=== PATIENT | female | born 1970 | race American Indian/Alaskan Native ===

== ENCOUNTER 2019-07-23 15:46 | Observation (INO) | payer OTHER ==
--- NOTE | 2019-07-23 16:11 | Emergency Department Report ---
Blank Doc - Documentation Documentation: 48-year-old female that chest pain and SOB. This initial assessment/diagnostic orders/clinical plan/treatment(s) is/are subject to change based on patient's health status, clinical progression and re- assessment by fellow clinical providers in the ED. Further treatment and workup at subsequent clinical providers discretion. Patient/guardians urged not to elope from the ED as their condition may be serious if not clinically assessed and managed. Initial orders include: 1- Patient sent to MAIN ED for further evaluation and treatment 2- labs 3- UA 4- CXR
--- NOTE | 2019-07-23 16:54 | XRay Report ---
CHEST 2 VIEWS INDICATION: Chest Pain. COMPARISON: None FINDINGS: Support devices: None. Heart: Within normal limits. Lungs/pleura: No acute air space or interstitial disease. No pneumothorax. Additional findings: None. IMPRESSION: 1. No acute findings. Signer Name: Freddie Diez MD Signed: 07/23/2019 4:49 PM Workstation Name: [id number]
[2019-07-23] MEDS ORDERED: SODIUM CHLORIDE 0.9% 1000 ML 1,000 ML IV ONE ×3 (16:56→20:07)
[2019-07-23] MEDS ORDERED: FAMOTIDINE 20 MG/2 ML INJ IV ONE (17:03)
[2019-07-23] MEDS ORDERED: HYDROmorphone 1 MG/1 ML INJ IV ONE (17:03)
[2019-07-23] MEDS ORDERED: ONDANSETRON 4 MG/2 ML INJ IV ONE (17:03)
[2019-07-23 17:06] LABS: Basophils % (Auto) 0.4 % (0.0-1.8); Hematocrit 32.4 % (30.3-42.9); Hemoglobin 10.7 gm/dl (10.1-14.3); Lymphocytes # (Auto) 1.6 K/mm3 (1.2-5.4); Lymphocytes % (Auto) 15.3 % (13.4-35.0); Mean Corpuscular HGB Conc 33 % (30-34); Mean Corpuscular Volume 93 fl (79-97); Monocytes # (Auto) 0.5 K/mm3 (0.0-0.8); Monocytes % (Auto) 5.4 % (0.0-7.3); Platelet Count 226 K/mm3 (140-440); Red Cell Distribution Width 14.3 % (13.2-15.2)
[2019-07-23 17:12] LABS: INR 1.07 (0.87-1.13)
[2019-07-23 17:27] LABS: Alanine Aminotransferase 11 units/L (7-56); Albumin 3.8 g/dL (3.9-5); BUN/Creatinine Ratio 34; Blood Urea Nitrogen 57 mg/dL (7-17); Calcium 10.1 mg/dL (8.4-10.2); Hemolysis Index 1
[2019-07-23] MEDS ORDERED: THIAMINE 100 MG, FOLIC ACID 1 MG, MULTIPLE VITAMIN INJ, ADULT 10 ML in SODIUM CHLORIDE ... IV ONE (18:00)
[2019-07-23 18:23] LABS: Free T4 (Free Thyroxine) 0.94 ng/dL (0.76-1.46)
[2019-07-23] MEDS ORDERED: MAGNESIUM SULFATE 2 GM/50 ML BAG IV ONE (18:52)
--- NOTE | 2019-07-23 19:49 | Cat Scan Report ---
CT ABDOMEN AND PELVIS WITHOUT CONTRAST INDICATION: Generalized abdominal pain, nausea vomiting and diarrhea TECHNICAL: Multiple axial CT images of the abdomen and pelvis were acquired without intravenous contr ast. Sagittal and coronal reformats were obtained. All CTs at this facility utilize dose reduction techniques including automated exposure control, iterative reconstruction and weight based dosing whe n appropriate to reduce patient radiation dose to as low as reasonable achievable. COMPARISON: None FINDINGS: Limited imaging of the bilateral lung bases demonstrates no acute abnormality. Abdomen: Within the limitations of today's noncontrast study, the liver, spleen, gallbladder, bilater al adrenal glands and bilateral kidneys show no evidence of acute abnormality. No obstructing stone o r hydronephrosis is identified. The small and large bowel are normal in caliber. There is no evidence of bowel obstruction, free fluid or free air. The appendix appears normal. There is dense atheroscle rotic calcification along the distal abdominal aorta without evidence for aneurysm. Pelvis: No free fluid is seen within the pelvis. Uterus and urinary bladder appear within normal limi ts. Bones and Soft Tissues: Evaluation of bony structures demonstrates no evidence of acute bony abnorma lity. IMPRESSION: 1. No CT evidence of acute inflammatory or obstructive process within the abdomen or pelvis. Signer Name: Makeda Pratt MD Signed: 07/23/2019 7:45 PM Workstation Name: [id number]
--- NOTE | 2019-07-23 20:07 | Emergency Department Report ---
ED N/V/D HPI - General Chief complaint: Chest Pain Stated complaint: CHEST PAIN Time Seen by Provider: 07/23/19 16:10 Source: patient Mode of arrival: Wheelchair Limitations: No Limitations - History of Present Illness Initial comments: 48-year-old female with past medical history hypertension, hypothyroidism, elevated cholesterol, CAD without stents, and daily alcohol use is as the hospital complaining of nausea, vomiting, and generalized weakness. Patient states she has had no appetite the last 2 weeks. She's had intermittent vomiting but denies hematemesis. She has not had much to eat in the last 2 weeks and now complains of inability to ambulate due to generalized weakness shortness of breath. He complains of generalized abdominal soreness. She also states she's developed a rash to her abdomen over the last several weeks. She had diarrhea yesterday is dark in color denies hematochezia. No reports of fever. Patient also place a left leg pain/numbness starting from the buttock and radiating downward. Denies history of PE/DVT, recent travel, calf tenderness, or Leg Edema. Patient stopped alcohol about 2 weeks ago and did not tremors or seizures. She reports history of . In triage pt complained of bilateral rib pain she complains of left-sided lower aching rib pain during my evaluation. - Related Data Home Medications Medication Instructions Recorded Confirmed Last Taken AtorvaSTATin [Lipitor] 40 mg PO QHS 07/23/19 07/23/19 Unknown Clopidogrel [Plavix] 75 mg PO QDAY 07/23/19 07/23/19 Unknown ISOSORBIDE MONOnitrate 30 mg PO DAILY 07/23/19 07/23/19 Unknown Propylthiouracil 50 mg PO DAILY 07/23/19 07/23/19 Unknown amLODIPine [Norvasc] 5 mg PO DAILY 07/23/19 07/23/19 Unknown traMADol [Ultram] 50 mg PO Q6HR PRN 07/23/19 07/23/19 Unknown Allergies Allergy/AdvReac Type Severity Reaction Status Date / Time lisinopril Allergy Swelling Verified 07/23/19 15:47 ED Review of Systems ROS: Stated complaint: CHEST PAIN Other details as noted in HPI Comment: All other systems reviewed and negative ED Past Medical Hx - Past Medical History Hx Hypertension: Yes Additional medical history: HIGH CHOLESTROL/ RI X2. Hyperthyroidism - Surgical History Past Surgical History?: Yes Additional Surgical History: - Social History Smoking Status: Current Every Day Smoker Substance Use Type: Alcohol - Medications Home Medications: Home Medications Medication Instructions Recorded Confirmed Last Taken Type AtorvaSTATin [Lipitor] 40 mg PO QHS 07/23/19 07/23/19 Unknown History Clopidogrel [Plavix] 75 mg PO QDAY 07/23/19 07/23/19 Unknown History ISOSORBIDE MONOnitrate 30 mg PO DAILY 07/23/19 07/23/19 Unknown History Propylthiouracil 50 mg PO DAILY 07/23/19 07/23/19 Unknown History amLODIPine [Norvasc] 5 mg PO DAILY 07/23/19 07/23/19 Unknown History traMADol [Ultram] 50 mg PO Q6HR PRN 07/23/19 07/23/19 Unknown History ED Physical Exam - General Limitations: No Limitations - Other Other exam information: General: No acute distress Head: Atraumatic Eyes: normal appearance ENT: Mucous membranes Neck: Normal appearance, no midline tenderness Chest: Clear to auscultation bilaterally CV: Tachycardic regular rhythm Abdomen: Soft, normal bowel sounds, mild generalized tenderness, no rebound or guarding Back: Normal inspection Extremity: Normal inspection infection, full range of motion, no calf tenderness or edema Neuro: Alert O x 3, no facial asymmetry, speech clear, no gross motor sensory deficit Psych: Appropriate behavior Skin: Dark reticular rash to abdomen ED Course Vital Signs 07/23/19 07/23/19 07/23/19 16:15 16:42 17:00 Temperature 97.3 F L Pulse Rate 140 H 135 H Respiratory 24 21 Rate Blood Pressure 84/48 115/92 Blood Pressure [Left] O2 Sat by Pulse 94 94 100 Oximetry 07/23/19 07/23/19 07/23/19 18:00 19:00 19:02 Temperature Pulse Rate 112 H 120 H Respiratory 15 15 16 Rate Blood Pressure 152/89 136/56 Blood Pressure [Left] O2 Sat by Pulse 100 100 99 Oximetry 07/23/19 07/23/19 19:05 19:10 Temperature 98.1 F Pulse Rate 117 H Respiratory 16 16 Rate Blood Pressure Blood Pressure 107/62 [Left] O2 Sat by Pulse 100 Oximetry ED Medical Decision Making - Lab Data Result diagrams: 07/23/19 16:50 07/23/19 16:50 - EKG Data -: EKG Interpreted by Me EKG shows normal: sinus rhythm, ST-T waves (lat t wave inv, LATIA) Rate: tachycardia (141) - Radiology Data Radiology results: report reviewed CHEST 2 VIEWS INDICATION: Chest Pain. COMPARISON: None FINDINGS: Support devices: None. Heart: Within normal limits. Lungs/pleura: No acute air space or interstitial disease. No pneumothorax. Additional findings: None. IMPRESSION: 1. No acute findings. CT ABDOMEN AND PELVIS WITHOUT CONTRAST INDICATION: Generalized abdominal pain, nausea vomiting and diarrhea TECHNICAL: Multiple axial CT images of the abdomen and pelvis were acquired without intravenous contrast. Sagittal and coronal reformats were obtained. All CTs at this facility utilize dose reduction techniques including automated exposure control, iterative reconstruction and weight based dosing when appropriate to reduce patient radiation dose to as low as reasonable achievable. COMPARISON: None FINDINGS: Limited imaging of the bilateral lung bases demonstrates no acute abnormality. Abdomen: Within the limitations of today's noncontrast study, the liver, spleen, gallbladder, bilateral adrenal glands and bilateral kidneys show no evidence of acute abnormality. No obstructing stone or hydronephrosis is identified. The small and large bowel are normal in caliber. There is no evidence of bowel obstruction, free fluid or free air. The appendix appears normal. There is dense atherosclerotic calcification along the distal abdominal aorta without evidence for aneurysm. Pelvis: No free fluid is seen within the pelvis. Uterus and urinary bladder appear within normal limits. Bones and Soft Tissues: Evaluation of bony structures demonstrates no evidence of acute bony abnormality. IMPRESSION: 1. No CT evidence of acute inflammatory or obstructive process wi thin the abdomen or pelvis. - Medical Decision Making Patient presents to the hospital in poor appetite for 2 weeks intermittent nausea and vomiting. Symptoms started after stopping alcohol intake. Labs reveal significant dehydration. Patient states tachycardia is improving for persistent with IV fluids. Patient is hydrated with normal saline and a banana bag. Mag was supplemented. Dilaudid 0.5 mg and Zofran provided for pain and nausea. After these meds patient did have some persistent tachycardia. Ativan 1 mg ordered for possible alcohol withdrawal-related tachycardia with additional normal saline. Chest x-ray CT abdomen and pelvis did not show any acute findings. Despite 2 L of fluid still awaiting urine production. Patient will be admitted to the hospital for mild hyponatremia with associated mild hyperglycemia and dehydration with renal insufficiency. Patient's left leg symptoms likely secondary to sciatica. I suspect the patient is rash to abdomen secondary to heating pad use. When questioned she admits to using a heating pa d daily and even sleeping with the pad at night. - Differential Diagnosis alcohol withdrawal, dehydration, abdominal infection, hyperthyroid Critical Care Time: No Critical care attestation.: If time is entered above; I have spent that time in minutes in the direct care of this critically ill patient, excluding procedure time. ED Disposition Clinical Impression: Poor appetite, Nausea vomiting and diarrhea, History of alcohol abuse, Dehydration, Hypomagnesemia, Renal insufficiency, Hyponatremia Disposition: DC-09 OP ADMIT IP TO THIS HOSP Is pt being admited?: Yes Condition: Stable Referrals: CORY BENÍTEZ MD [Primary Care Provider] - 3-5 Days
[2019-07-23] MEDS ORDERED: LORazepam 2 MG/ML VIAL IV ONE (20:31)
[2019-07-23 21:11] LABS: Bacteria,Urine 1+ /HPF (Negative); Bilirubin,Urine NEG (Negative); Blood,Urine SM (Negative); Color,Urine Yellow (Yellow); Hyaline Casts,Urine 5 /LPF; Mucus,Urine FEW /HPF; Protein,Urine <15 mg/dL mg/dL (Negative); Urobilinogen,Urine < 2.0 mg/dL (<2.0)
[2019-07-23 21:19] LABS: Amphetamine Screen,Urine PRESUMPTIVE NEGATIVE; Benzodiazepines Screen,Urine PRESUMPTIVE NEGATIVE; Cocaine Screen,Urine PRESUMPTIVE NEGATIVE; Methadone Screen,Urine PRESUMPTIVE NEGATIVE; Opiate Screen,Urine PRESUMPTIVE NEGATIVE
[2019-07-23 21:32] LABS: Cannabinoid Screen,Urine PRESUMPTIVE POSITIVE
[2019-07-23] MEDS ORDERED: ACETAMINOPHEN 325 MG TAB PO PRN (22:20)
[2019-07-23] MEDS ORDERED: MAGNESIUM HYDROXIDE (MOM) ORAL LIQD UDC PO PRN (22:20)
[2019-07-23] MEDS ORDERED: ONDANSETRON 4 MG/2 ML INJ IV PRN (22:20)
[2019-07-23] MEDS ORDERED: SODIUM CHLORIDE 0.9% 1000 ML 1,000 ML IV SCH (23:00)
[2019-07-24] MEDS: MORPHINE 2 MG/1 ML INJ IV PRN ×2 (00:06→08:07)
--- NOTE | 2019-07-24 04:33 | History and Physical Report ---
History of Present Illness Date of examination: 07/23/19 Date of admission: 07/23/19 22:21 Chief complaint: Nausea vomiting and diarrhea for 2 weeks History of present illness: Patient is a 48-year-old female who presents to the emergency room today complaining of nausea vomiting and diarrhea which has been ongoing for about 2 weeks. She has had decreased appetite over the last few days. She denies any fever no chills, no chest pain or shortness of breath. She denies any abdominal pain. Denies any bloody stool. She has significant history of hyperthyroidism and she has been compliant with her medications. Upon arrival in the emergency room she was tachycardic. She also has a history of alcohol withdrawal. She has not been drinking alcohol for over 3 weeks. Her work-up reveals a slightly elevated creatinine and low magnesium level. Magnesium was promptly repleted in the emergency room. Past History Past Medical History: CAD, hyperthyroidism, hypertension Past Surgical History: Social history: smoking (Smokes 1 pack/day of tobacco), alcohol abuse (She has not been drinking alcohol for over 3 weeks) Medications and Allergies Allergies Allergy/AdvReac Type Severity Reaction Status Date / Time lisinopril Allergy Swelling Verified 07/23/19 15:47 Home Medications Medication Instructions Recorded Confirmed Last Taken Type AtorvaSTATin [Lipitor] 40 mg PO QHS 07/23/19 07/23/19 Unknown History Clopidogrel [Plavix] 75 mg PO QDAY 07/23/19 07/23/19 Unknown History ISOSORBIDE MONOnitrate 30 mg PO DAILY 07/23/19 07/23/19 Unknown History Propylthiouracil 50 mg PO DAILY 07/23/19 07/23/19 Unknown History amLODIPine [Norvasc] 5 mg PO DAILY 07/23/19 07/23/19 Unknown History traMADol [Ultram] 50 mg PO Q6HR PRN 07/23/19 07/23/19 Unknown History Active Meds: Active Medications Acetaminophen (Tylenol) 650 mg PO Q4H PRN PRN Reason: Pain MILD(1-3)/Fever >100.5/FOX Sodium Chloride (Nacl 0.9% 1000 Ml) 1,000 mls @ 125 mls/hr IV DIRECT ANA Last Admin: 07/24/19 00:06 Dose: 125 mls/hr Documented by: Magnesium Hydroxide (Milk Of Magnesia) 30 ml PO Q4H PRN PRN Reason: Constipation Morphine Sulfate (Morphine) 2 mg IV Q4H PRN PRN Reason: Pain, Moderate (4-6) Last Admin: 07/24/19 00:06 Dose: 2 mg Documented by: Ondansetron HCl (Zofran) 4 mg IV Q8H PRN PRN Reason: Nausea And Vomiting Sodium Chloride (Sodium Chloride Flush Syringe 10 Ml) 10 ml IV BID ANA Sodium Chloride (Sodium Chloride Flush Syringe 10 Ml) 10 ml IV PRN PRN PRN Reason: LINE FLUSH Last Admin: 07/24/19 00:06 Dose: 10 ml Documented by: Review of Systems Constitutional: poor appetite Gastrointestinal: nausea, vomiting, diarrhea Exam - Constitutional Vitals: Temp Pulse Resp BP Pulse Ox 97.3 F L 89 18 136/76 100 07/24/19 00:05 07/24/19 00:05 07/24/19 00:06 07/24/19 00:05 07/24/19 00:05 General appearance: Present: no acute distress - EENT Eyes: Present: PERRL, EOM intact ENT: clear oral mucosa - Neck Neck: Present: supple, normal ROM - Respiratory Respiratory effort: normal Respiratory: bilateral: CTA - Cardiovascular Rhythm: regular Heart Sounds: Present: S1 & S2 - Extremities Extremities: no ischemia, pulses intact Peripheral Pulses: within normal limits - Abdominal General gastrointestinal: Present: soft, non-tender, non-distended - Integumentary Integumentary: Present: clear, warm, dry - Musculoskeletal Musculoskeletal: strength equal bilaterally - Psychiatric Psychiatric: appropriate mood/affect, intact judgment & insight - Neurologic Neurologic: CNII-XII intact, moves all extremities Results - Labs CBC & Chem 7: 07/23/19 16:50 07/23/19 16:50 Labs: Abnormal lab results 07/23/19 07/23/19 07/23/19 Range/Units 16:50 16:50 17:21 RBC 3.50 L (3.65-5.03) M/mm3 Seg Neutrophils % 78.9 H (40.0-70.0) % Seg Neutrophils # 8.0 H (1.8-7.7) K/mm3 Sodium 128 L (137-145) mmol/L Chloride 92.4 L (98-107) mmol/L Carbon Dioxide 14 L (22-30) mmol/L BUN 57 H (7-17) mg/dL Creatinine 1.7 H (0.7-1.2) mg/dL Glucose 215 H (65-100) mg/dL Magnesium 1.60 L (1.7-2.3) mg/dL Albumin 3.8 L (3.9-5) g/dL Urine WBC (Auto) (0.0-6.0) /HPF 07/23/19 Range/Units Unknown RBC (3.65-5.03) M/mm3 Seg Neutrophils % (40.0-70.0) % Seg Neutrophils # (1.8-7.7) K/mm3 Sodium (137-145) mmol/L Chloride (98-107) mmol/L Carbon Dioxide (22-30) mmol/L BUN (7-17) mg/dL Creatinine (0.7-1.2) mg/dL Glucose (65-100) mg/dL Magnesium (1.7-2.3) mg/dL Albumin (3.9-5) g/dL Urine WBC (Auto) 53.0 H (0.0-6.0) /HPF Assessment and Plan - Patient Problems (1) Nausea vomiting and diarrhea Current Visit: Yes Status: Acute Plan to address problem: Etiology is unclear. Patient has been admitted to the medical floor. Patient is placed on IV Zofran as needed. (2) Hypomagnesemia Current Visit: Yes Status: Acute Plan to address problem: Magnesium is repleted (3) Renal insufficiency Current Visit: Yes Status: Acute Plan to address problem: Probably secondary to volume depletion from nausea vomiting and diarrhea. We will monitor chemistry. (4) Hyponatremia Current Visit: Yes Status: Acute Plan to address problem: Probably secondary to the nausea vomiting and diarrhea. We will continue to monitor chemistry. (5) Dehydration Current Visit: Yes Status: Acute Plan to address problem: Patient has been placed on IV fluid normal saline for hydration. We will continue to monitor chemistry. (6) History of alcohol abuse Current Visit: Yes Status: Acute Plan to address problem: We will continue to monitor for withdrawal symptoms. Patient has not been drinking alcohol for over 3 weeks.
[2019-07-24 07:52] LABS: Basophils # (Auto) 0.1 K/mm3 (0.0-0.1); Basophils % (Auto) 0.6 % (0.0-1.8); Eosinophils % (Auto) 0.5 % (0.0-4.3); Hemoglobin 7.4 gm/dl (10.1-14.3); Lymphocytes # (Auto) 2.5 K/mm3 (1.2-5.4); Lymphocytes % (Auto) 27.2 % (13.4-35.0); Mean Corpuscular HGB Conc 34 % (30-34); Mean Corpuscular Volume 92 fl (79-97); Monocytes # (Auto) 0.9 K/mm3 (0.0-0.8); Platelet Count 146 K/mm3 (140-440); Red Blood Count 2.39 M/mm3 (3.65-5.03); Red Cell Distribution Width 14.3 % (13.2-15.2)
[2019-07-24 08:04] LABS: INR 1.09 (0.87-1.13)
[2019-07-24 08:15] LABS: BUN/Creatinine Ratio 34; Blood Urea Nitrogen 27 mg/dL (7-17); Calcium 8.3 mg/dL (8.4-10.2); Hemolysis Index 5
[2019-07-24] MEDS ORDERED: MORPHINE 2 MG/1 ML INJ IV PRN ×2 (10:47→10:51)
[2019-07-24] MEDS ORDERED: traMADol 50 MG TAB PO PRN (10:54)
[2019-07-24] MEDS ORDERED: NON-FORMULARY EACH (Isosorbide Mononitrate 30 MG) PO SCH (11:00)
[2019-07-24] MEDS ORDERED: PROPYLTHIOURACIL 50 MG PO SCH (11:00)
[2019-07-24] MEDS ORDERED: chlordiazePOXIDE 25 MG CAP PO PRN (11:13)
[2019-07-24] MEDS ORDERED: LORazepam 2 MG/ML VIAL IV PRN ×2 (11:13)
[2019-07-24] MEDS ORDERED: CLOPIDOGREL 75 MG TAB PO SCH (12:00)
[2019-07-24] MEDS ORDERED: amLODIPine 5 MG TAB PO SCH (12:00)
[2019-07-24] MEDS: LORazepam 2 MG/ML VIAL IV PRN ×3 (12:07→15:34)
[2019-07-24] MEDS ORDERED: NICOTINE 14 MG/24 HR PATCH TD SCH (13:00)
[2019-07-24 13:09] LABS: Alanine Aminotransferase 12 units/L (7-56); Albumin 2.9 g/dL (3.9-5); BUN/Creatinine Ratio 27; Blood Urea Nitrogen 19 mg/dL (7-17); Calcium 8.5 mg/dL (8.4-10.2); Hemolysis Index 3
[2019-07-24] MEDS ORDERED: propylthiouraciL 50 MG TAB PO SCH (14:00)
[2019-07-24 14:22] VITALS: BP 112/64
--- NOTE | 2019-07-24 17:29 | Event Note ---
Date: 07/24/19 Patient with EtOH dependence In delirium tremens CIWA protocol started
--- NOTE | 2019-07-25 12:38 | Discharge Summary ---
Providers - Providers Date of Admission: 07/23/19 22:21 Date of discharge: 07/24/19 Attending physician: RENETTA MARTIN [facility] Condition: Stable Hospital course: Patient is a 48-year-old female who presents to the emergency room today complaining of nausea vomiting and diarrhea which has been ongoing for about 2 weeks. She has had decreased appetite over the last few days. She denies any fever no chills, no chest pain or shortness of breath. She denies any abdominal pain. Denies any bloody stool. She has significant history of hyperthyroidism and she has been compliant with her medications. Upon arrival in the emergency room she was tachycardic. She also has a history of alcohol withdrawal. She has not been drinking alcohol for over 3 weeks. Her work-up reveals a slightly elevated creatinine and low magnesium level. Magnesium was promptly repleted in the emergency room. (1) Nausea vomiting and diarrhea Current Visit: Yes Status: Acute Plan to address problem: Etiology is unclear. Patient has been admitted to the medical floor. Patient is placed on IV Zofran as needed. (2) Hypomagnesemia Current Visit: Yes Status: Acute Plan to address problem: Magnesium is repleted (3) Renal insufficiency Current Visit: Yes Status: Acute Plan to address problem: Probably secondary to volume depletion from nausea vomiting and diarrhea. We will monitor chemistry. (4) Hyponatremia Current Visit: Yes Status: Acute Plan to address problem: Probably secondary to the nausea vomiting and diarrhea. We will continue to mo nitor chemistry. (5) Dehydration Current Visit: Yes Status: Acute Plan to address problem: Patient has been placed on IV fluid normal saline for hydration. We will continue to monitor chemistry. (6) History of alcohol abuse Current Visit: Yes Status: Acute Plan to address problem: We will continue to monitor for withdrawal symptoms. Patient has not been drinking alcohol for over 3 weeks. (7) Hyperthyroidism Cont Propylthiouracil Patient left AMA Disposition: DC-07 LEFT AGAINST MED ADVICE Core Measure Documentation - Palliative Care Palliative Care/ Comfort Measures: Not Applicable - Core Measures Any of the following diagnoses?: none Exam - Constitutional Vitals: Temp Pulse Resp BP Pulse Ox 98.1 F 89 19 112/64 100 07/24/19 14:21 07/24/19 14:21 07/24/19 14:21 07/24/19 14:21 07/24/19 14:21 General appearance: Present: no acute distress, well-nourished - EENT Eyes: Present: PERRL ENT: hearing intact, clear oral mucosa - Neck Neck: Present: supple, normal ROM - Respiratory Respiratory effort: normal Respiratory: bilateral: CTA - Cardiovascular Heart Sounds: Present: S1 & S2. Absent: rub, click - Extremities Extremities: pulses symmetrical, No edema Peripheral Pulses: within normal limits - Abdominal General gastrointestinal: Present: soft, non-tender, non-distended, normal bowel sounds Female genitourinary: Present: normal - Integumentary Integumentary: Present: clear, warm, dry - Musculoskeletal Musculoskeletal: gait normal, strength equal bilaterally - Psychiatric Psychiatric: appropriate mood/affect, intact judgment & insight - Neurologic Neurologic: CNII-XII intact, moves all extremities Plan Activity: no restrictions Diet: regular Follow up with: CORY BENÍTEZ MD [Primary Care Provider] - 3-5 Days
== END 2019-07-24 17:00 | disposition left against medical advice (07) ==
LOC: ED 15:46 → 3A 22:21
PROVIDERS: ADMIT Internal Medicine Geriatric Medicine; ATTEND Internal Medicine
DX: R11.2 Nausea with vomiting, unspecified (principal); E83.42 Hypomagnesemia; E87.1 Hypo-osmolality and hyponatremia; E86.0 Dehydration; N28.9 Disorder of kidney and ureter, unspecified; F10.129 Alcohol abuse with intoxication, unspecified; I25.10 Atherosclerotic heart disease of native coronary artery without angina pectoris; E05.90 Thyrotoxicosis, unspecified without thyrotoxic crisis or storm; I10 Essential (primary) hypertension; F17.200 Nicotine dependence, unspecified, uncomplicated; R63.0 Anorexia; Z98.891 History of uterine scar from previous surgery
CPT/HCPCS: 36415; 71046; 74176; 80048; 80053; 80307; 81001; 82140; 83690; 83735; 84439; 84443; 84484; 84703; 85025; 85379; 85610; 85730; 87086; 87116; 93005; 93010; 96361; 96365; 96367; 96375; 96376; 99284; G0378; J1170; J2060; J2270; J2405; J3411; J3475; J7030

== ENCOUNTER 2019-07-27 09:05 | Inpatient (IN) | payer OTHER ==
[2019-07-27] MEDS ORDERED: SODIUM CHLORIDE 0.9% 1000 ML 1,000 ML IV ONE ×2 (10:08→13:17)
[2019-07-27] MEDS ORDERED: LORazepam 2 MG/ML VIAL ONE (10:36)
[2019-07-27] MEDS ORDERED: LORazepam 2 MG/ML VIAL IV ONE (10:38)
[2019-07-27 10:39] LABS: Basophils # (Auto) 0.1 K/mm3 (0.0-0.1); Basophils % (Auto) 0.6 % (0.0-1.8); Eosinophils % (Auto) 0.3 % (0.0-4.3); Hematocrit 23.6 % (30.3-42.9); Hemoglobin 7.9 gm/dl (10.1-14.3); Lymphocytes # (Auto) 2.7 K/mm3 (1.2-5.4); Lymphocytes % (Auto) 19.8 % (13.4-35.0); Mean Corpuscular HGB Conc 34 % (30-34); Mean Corpuscular Volume 93 fl (79-97); Monocytes # (Auto) 0.7 K/mm3 (0.0-0.8); Monocytes % (Auto) 5.2 % (0.0-7.3); Platelet Count 225 K/mm3 (140-440); Red Blood Count 2.54 M/mm3 (3.65-5.03); Red Cell Distribution Width 14.7 % (13.2-15.2)
[2019-07-27 10:51] LABS: Creatine Kinase MB 1.3 ng/mL (0.0-4.0)
[2019-07-27 10:52] LABS: Alanine Aminotransferase 29 units/L (7-56); Albumin 3.6 g/dL (3.9-5); BUN/Creatinine Ratio 21; Blood Urea Nitrogen 17 mg/dL (7-17); Calcium 9.3 mg/dL (8.4-10.2); Hemolysis Index 0
[2019-07-27 10:54] LABS: Bilirubin,Direct < 0.2 mg/dL (0-0.2)
--- NOTE | 2019-07-27 11:10 | XRay Report ---
CHEST 1 VIEW INDICATION: hypertension. COMPARISON: 07/23/2019 FINDINGS: Support devices: None. Heart: Within normal limits. Pulmonary vasculature: Normal. Lungs/Pleura: No acute air space or interstitial disease. Additional findings: None. IMPRESSION: 1. No acute findings. Signer Name: Russ Otero MD Signed: 07/27/2019 11:06 AM Workstation Name: [id number]
--- NOTE | 2019-07-27 12:36 | Emergency Department Report ---
ED Abdominal Pain HPI - General Chief Complaint: Abdominal Pain Stated Complaint: ALCOHOL WITHDRAWS Time Seen by Provider: 07/27/19 10:06 Source: patient Mode of arrival: Ambulatory Limitations: No Limitations - History of Present Illness Initial Comments: This is a 48-year-old female who is somewhat perseverating on the idea that she stopped drinking 3 weeks ago and now she is sick from stopping. She states that she has had symptoms for at least a week and a half. She neglected to mention to me her recent admission for chest pain. Remarkably she now complains of left upper quadrant pain. She neglected to tell any of her prior physicians that s he's been having black stools for at least 2 weeks. She complains of nausea but has not been vomiting. Complains of generalized weakness. She arrived and was noted to be tachycardic. She was not febrile she has a history of hyperthyroidism. It looks like she was placed on Plavix on 07/23/2019. Recent discharge summary: Hospitalization Condition: Stable Hospital course: Patient is a 48-year-old female who presents to the emergency room today complaining of nausea vomiting and diarrhea which has been ongoing for about 2 weeks. She has had decreased appetite over the last few days. She denies any fever no chills, no chest pain or shortness of breath. She denies any abdominal pain. Denies any bloody stool. She has significant history of hyperthyroidism and she has been compliant with her medications. Upon arrival in the emergency room she was tachycardic. She also has a history of alcohol withdrawal. She has not been drinking alcohol for over 3 weeks. Her work-up reveals a slightly elevated creatinine and low magnesium level. Magnesium was promptly repleted in the emergency room. (1) Nausea vomiting and diarrhea Current Visit: Yes Status: Acute Plan to address problem: Etiology is unclear. Patient has been admitted to the medical floor. Patient is placed on IV Zofran as needed. (2) Hypomagnesemia Current Visit: Yes Status: Acute Plan to address problem: Magnesium is repleted (3) Renal insufficiency Current Visit: Yes Status: Acute Plan to address problem: Probably secondary to volume depletion from nausea vomiting and diarrhea. We will monitor chemistry. (4) Hyponatremia Current Visit: Yes Status: Acute Plan to address problem: Probably secondary to the nausea vomiting and diarrhea. We will continue to monitor chemistry. (5) Dehydration Current Visit: Yes Status: Acute Plan to address problem: Patient has been placed on IV fluid normal saline for hydration. We will continue to monitor chemistry. (6) History of alcohol abuse Current Visit: Yes Status: Acute Plan to address problem: We will continue to monitor for withdrawal symptoms. Patient has not been drinking alcohol for over 3 weeks. (7) Hyperthyroidism Cont Propylthiouracil Complaint: abdominal pain -: Gradual Location: LUQ Radiation: none Migration to: no migration Severity: moderate Quality: aching Consistency: intermittent Improves With: nothing Worsens With: nothing Associated Symptoms: nausea, vomiting, melena (apparently) - Related Data Home Medications Medication Instructions Recorded Confirmed Last Taken AtorvaSTATin [Lipitor] 40 mg PO QHS 07/23/19 07/23/19 Unknown Clopidogrel [Plavix] 75 mg PO QDAY 07/23/19 07/23/19 Unknown ISOSORBIDE MONOnitrate 30 mg PO DAILY 07/23/19 07/23/19 Unknown Propylthiouracil 50 mg PO DAILY 07/23/19 07/23/19 Unknown amLODIPine [Norvasc] 5 mg PO DAILY 07/23/19 07/23/19 Unknown traMADol [Ultram] 50 mg PO Q6HR PRN 07/23/19 07/23/19 Unknown Allergies Allergy/AdvReac Type Severity Reaction Status Date / Time lisinopril Allergy Swelling Verified 07/23/19 15:47 ED Review of Systems ROS: Stated complaint: ALCOHOL WITHDRAWS Other details as noted in HPI Constitutional: denies: chills, fever Eyes: denies: eye pain, eye discharge, vision change ENT: denies: ear pain, throat pain Respiratory: denies: cough, shortness of breath, wheezing Cardiovascular: denies: chest pain, palpitations Endocrine: no symptoms reported Gastrointestinal: abdominal pain, nausea, vomiting, diarrhea Genitourinary: denies: urgency, dysuria, discharge Musculoskeletal: denies: back pain, joint swelling, arthralgia Skin: denies: rash, lesions Neurological: denies: headache, weakness, paresthesias Psychiatric: denies: anxiety, depression Hematological/Lymphatic: denies: easy bleeding, easy bruising ED Past Medical Hx - Past Medical History Previous Medical History?: Yes Hx Hypertension: Yes Hx Heart Attack/AMI: Yes (x 2 Last 2017) Hx Congestive Heart Failure: No Hx Diabetes: No Hx Asthma: No Hx COPD: No Additional medical history: HIGH CHOLESTROL/ [place] X2. Hyperthyroidism - Surgical History Past Surgical History?: Yes Additional Surgical History: - Social History Smoking Status: Current Every Day Smoker Substance Use Type: Alcohol - Medications Home Medications: Home Medications Medication Instructions Recorded Confirmed Last Taken Type AtorvaSTATin [Lipitor] 40 mg PO QHS 07/23/19 07/23/19 Unknown History Clopidogrel [Plavix] 75 mg PO QDAY 07/23/19 07/23/19 Unknown History ISOSORBIDE MONOnitrate 30 mg PO DAILY 07/23/19 07/23/19 Unknown History Propylthiouracil 50 mg PO DAILY 07/23/19 07/23/19 Unknown History amLODIPine [Norvasc] 5 mg PO DAILY 07/23/19 07/23/19 Unknown History traMADol [Ultram] 50 mg PO Q6HR PRN 07/23/19 07/23/19 Unknown History ED Physical Exam - General Limitations: No Limitations General appearance: alert, in no apparent distress - Head Head exam: Present: atraumatic, normocephalic - Eye Eye exam: Present: normal appearance, other (moderately exophthalmic). Absent: scleral icterus - ENT ENT exam: Present: mucous membranes moist - Neck Neck exam: Present: normal inspection. Absent: tenderness, meningismus - Respiratory Respiratory exam: Present: normal lung sounds bilaterally. Absent: respiratory distress - Cardiovascular Cardiovascular Exam: Present: normal rhythm, tachycardia. Absent: systolic murmur, diastolic murmur, rubs, gallop - GI/Abdominal GI/Abdominal exam: Present: soft, normal bowel sounds. Absent: distended, tenderness, guarding, rebound, rigid, organomegaly, mass, bruit, pulsatile mass, hernia - Extremities Exam Extremities exam: Present: normal inspection - Back Exam Back exam: Present: normal inspection. Absent: CVA tenderness (R), CVA tenderness (L) - Neurological Exam Neurological exam: Present: alert, oriented X3, CN II-XII intact. Absent: motor sensory deficit - Psychiatric Psychiatric exam: Present: normal mood, anxious - Skin Skin exam: Present: warm, dry, intact, normal color. Absent: rash ED Course Vital Signs 07/27/19 07/27/19 07/27/19 09:18 10:19 10:30 Temperature 98.2 F Pulse Rate 132 H Respiratory 22 19 Rate Blood Pressure 130/70 Blood Pressure [Left] O2 Sat by Pulse 100 100 Oximetry 07/27/19 07/27/19 07/27/19 10:45 11:00 11:16 Temperature Pulse Rate 94 H 104 H 107 H Respiratory 13 22 19 Rate Blood Pressure 124/61 108/47 Blood Pressure 124/61 [Left] O2 Sat by Pulse 100 100 100 Oximetry 07/27/19 07/27/19 07/27/19 12:00 13:30 13:46 Temperature Pulse Rate 98 H 91 H Respiratory 18 12 Rate Blood Pressure 105/49 126/64 105/49 Blood Pressure [Left] O2 Sat by Pulse 100 99 100 Oximetry 07/27/19 14:00 Temperature Pulse Rate 105 H Respiratory 14 Rate Blood Pressure Blood Pressure 104/58 [Left] O2 Sat by Pulse 100 Oximetry - Reevaluation(s) Reevaluation #1: Given Ativan. Protonix. Transfusion ordered. Hemoglobin dropped 3 last admission. Rectal exam was grossly positive for blood (bright blue} Amanuel on a stool no blood clots. 07/27/19 15:09 07/27/19 15:09 ED Medical Decision Making - Lab Data Result diagrams: 07/27/19 10:07 07/27/19 10:19 Laboratory Results - last 24 hr 07/27/19 07/27/19 07/27/19 10:07 10:07 10:07 WBC 13.6 H RBC 2.54 L Hgb 7.9 L Hct 23.6 L MCV 93 MCH 31 MCHC 34 RDW 14.7 Plt Count 225 Lymph % (Auto) 19.8 [place] % (Auto) 5.2 Eos % (Auto) 0.3 Baso % (Auto) 0.6 Lymph # 2.7 [place] # 0.7 Eos # 0.0 Baso # 0.1 Seg Neutrophils % 74.1 H Seg Neutrophils # 10.1 H Sodium Potassium Chloride Carbon Dioxide Anion Gap BUN Creatinine Estimated GFR BUN/Creatinine Ratio Glucose Lactic Acid Calcium Phosphorus Magnesium Total Bilirubin Direct Bilirubin Indirect Bilirubin AST ALT Alkaline Phosphatase Ammonia Total Creatine Kinase CK-MB (CK-2) CK-MB (CK-2) Rel Index Total Protein Albumin Albumin/Globulin Ratio Lipase TSH Salicylates 4.1 Acetaminophen < 5.0 L Plasma/Serum Alcohol 07/27/19 07/27/19 07/27/19 10:07 10:07 10:07 WBC RBC Hgb Hct MCV MCH MCHC RDW Plt Count Lymph % (Auto) [place] % (Auto) Eos % (Auto) Baso % (Auto) Lymph # [place] # Eos # Baso # Seg Neutrophils % Seg Neutrophils # Sodium Potassium Chloride Carbon Dioxide Anion Gap BUN Creatinine Estimated GFR BUN/Creatinine Ratio Glucose Lactic Acid 2.20 H* Calcium Phosphorus Magnesium Total Bilirubin Direct Bilirubin Indirect Bilirubin AST ALT Alkaline Phosphatase Ammonia 25.0 Total Creatine Kinase CK-MB (CK-2) CK-MB (CK-2) Rel Index Total Protein Albumin Albumin/Globulin Ratio Lipase TSH Salicylates Acetaminophen Plasma/Serum Alcohol < 0.01 07/27/19 07/27/19 07/27/19 10:07 10:07 10:19 WBC RBC Hgb Hct MCV MCH MCHC RDW Plt Count Lymph % (Auto) [place] % (Auto) Eos % (Auto) Baso % (Auto) Lymph # [place] # Eos # Baso # Seg Neutrophils % Seg Neutrophils # Sodium 136 L Potassium 4.0 Chloride 101.8 Carbon Dioxide 22 Anion Gap 16 BUN 17 Creatinine 0.8 Estimated GFR > 60 BUN/Creatinine Ratio 21 Glucose 91 Lactic Acid Calcium 9.3 Phosphorus 3.60 Magnesium 1.80 Total Bilirubin 0.20 Direct Bilirubin < 0.2 Indirect Bilirubin 0.0 AST 28 ALT 29 Alkaline Phosphatase 101 Ammonia Total Creatine Kinase 36 CK-MB (CK-2) 1.3 CK-MB (CK-2) Rel Index 3.6 Total Protein 6.9 Albumin 3.6 L Albumin/Globulin Ratio 1.1 Lipase 33 TSH 0.881 Salicylates Acetaminophen Plasma/Serum Alcohol 07/27/19 11:00 WBC RBC Hgb Hct MCV MCH MCHC RDW Plt Count Lymph % (Auto) [place] % (Auto) Eos % (Auto) Baso % (Auto) Lymph # [place] # Eos # Baso # Seg Neutrophils % Seg Neutrophils # Sodium Potassium Chloride Carbon Dioxide Anion Gap BUN Creatinine Estimated GFR BUN/Creatinine Ratio Glucose Lactic Acid 2.00 Calcium Phosphorus Magnesium Total Bilirubin Direct Bilirubin Indirect Bilirubin AST ALT Alkaline Phosphatase Ammonia Total Creatine Kinase CK-MB (CK-2) CK-MB (CK-2) Rel Index Total Protein Albumin Albumin/Globulin Ratio Lipase TSH Salicylates Acetaminophen Plasma/Serum Alcohol Laboratory Results - last 24 hr 07/27/19 07/27/19 07/27/19 10:07 10:07 10:07 WBC 13.6 H RBC 2.54 L Hgb 7.9 L Hct 23.6 L MCV 93 MCH 31 MCHC 34 RDW 14.7 Plt Count 225 Lymph % (Auto) 19.8 [place] % (Auto) 5.2 Eos % (Auto) 0.3 Baso % (Auto) 0.6 Lymph # 2.7 [place] # 0.7 Eos # 0.0 Baso # 0.1 Seg Neutrophils % 74.1 H Seg Neutrophils # 10.1 H Sodium Potassium Chloride Carbon Dioxide Anion Gap BUN Creatinine Estimated GFR BUN/Creatinine Ratio Glucose Lactic Acid Calcium Phosphorus Magnesium Total Bilirubin Direct Bilirubin Indirect Bilirubin AST ALT Alkaline Phosphatase Ammonia Total Creatine Kinase CK-MB (CK-2) CK-MB (CK-2) Rel Index Total Protein Albumin Albumin/Globulin Ratio Lipase TSH Thyroxine (T4) Salicylates 4.1 Acetaminophen < 5.0 L Plasma/Serum Alcohol 07/27/19 07/27/19 07/27/19 10:07 10:07 10:07 WBC RBC Hgb Hct MCV MCH MCHC RDW Plt Count Lymph % (Auto) [place] % (Auto) Eos % (Auto) Baso % (Auto) Lymph # [place] # Eos # Baso # Seg Neutrophils % Seg Neutrophils # Sodium Potassium Chloride Carbon Dioxide Anion Gap BUN Creatinine Estimated GFR BUN/Creatinine Ratio Glucose Lactic Acid 2.20 H* Calcium Phosphorus Magnesium Total Bilirubin Direct Bilirubin Indirect Bilirubin AST ALT Alkaline Phosphatase Ammonia 25.0 Total Creatine Kinase CK-MB (CK-2) CK-MB (CK-2) Rel Index Total Protein Albumin Albumin/Globulin Ratio Lipase TSH Thyroxine (T4) Salicylates Acetaminophen Plasma/Serum Alcohol < 0.01 07/27/19 07/27/19 07/27/19 10:07 10:07 10:07 WBC RBC Hgb Hct MCV MCH MCHC RDW Plt Count Lymph % (Auto) [place] % (Auto) Eos % (Auto) Baso % (Auto) Lymph # [place] # Eos # Baso # Seg Neutrophils % Seg Neutrophils # Sodium Potassium Chloride Carbon Dioxide Anion Gap BUN Creatinine Estimated GFR BUN/Creatinine Ratio Glucose Lactic Acid Calcium Phosphorus 3.60 Magnesium 1.80 Total Bilirubin Direct Bilirubin Indirect Bilirubin AST ALT Alkaline Phosphatase Ammonia Total Creatine Kinase CK-MB (CK-2) CK-MB (CK-2) Rel Index Total Protein Albumin Albumin/Globulin Ratio Lipase 33 TSH 0.881 Thyroxine (T4) 4.7 Salicylates Acetaminophen Plasma/Serum Alcohol 07/27/19 07/27/19 10:19 11:00 WBC RBC Hgb Hct MCV MCH MCHC RDW Plt Count Lymph % (Auto) [place] % (Auto) Eos % (Auto) Baso % (Auto) Lymph # [place] # Eos # Baso # Seg Neutrophils % Seg Neutrophils # Sodium 136 L Potassium 4.0 Chloride 101.8 Carbon Dioxide 22 Anion Gap 16 BUN 17 Creatinine 0.8 Estimated GFR > 60 BUN/Creatinine Ratio 21 Glucose 91 Lactic Acid 2.00 Calcium 9.3 Phosphorus Magnesium Total Bilirubin 0.20 Direct Bilirubin < 0.2 Indirect Bilirubin 0.0 AST 28 ALT 29 Alkaline Phosphatase 101 Ammonia Total Creatine Kinase 36 CK-MB (CK-2) 1.3 CK-MB (CK-2) Rel Index 3.6 Total Protein 6.9 Albumin 3.6 L Albumin/Globulin Ratio 1.1 Lipase TSH Thyroxine (T4) Salicylates Acetaminophen Plasma/Serum Alcohol - EKG Data -: EKG Interpreted by Nm EKG shows normal: sinus rhythm Rate: tachycardia - EKG Data Interpretation: nonspecific ST-T wave michael - Radiology Data Radiology results: report reviewed (chest x-ray no acute findings) Critical care attestation.: If time is entered above; I have spent that time in minutes in the direct care o f this critically ill patient, excluding procedure time. ED Disposition Clinical Impression: Upper GI bleeding Disposition: OP ADMIT IP TO THIS HOSP Is pt being admited?: Yes Does the pt Need Aspirin: No Condition: Stable Instructions: Abdominal Pain (ED) Referrals: PRIMARY CARE, [Referring] - 3-5 Days Time of Disposition: 15:11
[2019-07-27] MEDS ORDERED: SODIUM CHLORIDE 0.9% 500 ML 500 ML IV ONE (13:16)
[2019-07-27] MEDS ORDERED: PANTOPRAZOLE 40 MG INJ IV ONE ×2 (13:16→13:17)
[2019-07-27] MEDS: MEROPENEM/NS 1 GRAM/100 ML 1 GRAM/100 ML BAG IV ONE ×2 (13:41→13:45)
[2019-07-27] MEDS ORDERED: VANCOMYCIN PHARMACY TO DOSE IV SCH (14:00)
[2019-07-27] MEDS ORDERED: CEFEPIME/NS 1 GM/100 ML 1 GM/100 ML BAG IV ONE (14:24)
[2019-07-27 14:28] LABS: HCG Qualitative,Urine Negative (Negative)
[2019-07-27 14:33] LABS: Bilirubin,Urine NEG (Negative); Blood,Urine NEG (Negative); Color,Urine Yellow (Yellow); Mucus,Urine FEW /HPF; Protein,Urine <15 mg/dL mg/dL (Negative); RBC,Urine < 1.0 /HPF (0.0-6.0); Urobilinogen,Urine < 2.0 mg/dL (<2.0)
[2019-07-27 14:43] LABS: Amphetamine Screen,Urine PRESUMPTIVE NEGATIVE; Benzodiazepines Screen,Urine PRESUMPTIVE NEGATIVE; Cocaine Screen,Urine PRESUMPTIVE NEGATIVE; Methadone Screen,Urine PRESUMPTIVE NEGATIVE; Opiate Screen,Urine PRESUMPTIVE NEGATIVE
[2019-07-27 14:55] LABS: Cannabinoid Screen,Urine PRESUMPTIVE POSITIVE
[2019-07-27] MEDS: VANCOMYCIN 750 MG in SODIUM CHLORIDE 0.9% 250ML 250 ML IV SCH (16:25)
--- NOTE | 2019-07-27 17:25 | Gastroenterology Consultation ---
History of Present Illness - Reason for Consult Consult date: 07/27/19 Mel[place] Requesting physician: MAIRA GARCIA - History of Present Illness Patient is a 48 yo female with PMH tobacco, EtOh abuse, NSAID use, and history AR 2 years ago, recently started on plavix, presenting with melena and anemia and tachycardia Patient reports for the last 3 weeks black tarry stool, LUQ abd pain that is moderate to severe, intermittent, radiates around to the left flank, no al leviating or exacerbating factors, duration 3 weeks, associated with melena and fatigue and nausea She denies history PUD in the past home meds updated/reviewed/reconciled Past History Past Medical History: acute AR, other (thyroid, EtOH abuse) Past Surgical History: Social history: smoking, alcohol abuse Family history: no significant family history Medications and Allergies Allergies Allergy/AdvReac Type Severity Reaction Status Date / Time lisinopril Allergy Swelling Verified 07/23/19 15:47 Home Medications Medication Instructions Recorded Confirmed Last Taken Type AtorvaSTATin [Lipitor] 40 mg PO QHS 07/23/19 07/23/19 Unknown History Clopidogrel [Plavix] 75 mg PO QDAY 07/23/19 07/23/19 Unknown History ISOSORBIDE MONOnitrate 30 mg PO DAILY 07/23/19 07/23/19 Unknown History Propylthiouracil 50 mg PO DAILY 07/23/19 07/23/19 Unknown History amLODIPine [Norvasc] 5 mg PO DAILY 07/23/19 07/23/19 Unknown History traMADol [Ultram] 50 mg PO Q6HR PRN 07/23/19 07/23/19 Unknown History Active Meds: Active Medications Vancomycin HCl 750 mg/ Sodium (Chloride) 265 mls @ 132.5 mls/hr IV Q12H ANA Last Admin: 07/27/19 16:25 Dose: 132.5 mls/hr Documented by: Review of Systems - Review of Systems All systems: negative (10 systems reviewed and negative except as mentioned above in the HPI) Exam - Constitutional Vital Signs: Temp Pulse Resp BP Pulse Ox 98.2 F 105 H 14 104/58 100 07/27/19 09:18 07/27/19 14:00 07/27/19 14:00 07/27/19 14:00 07/27/19 14:00 General appearance: other (mildly uncomfortable appearing) - EENT Eyes: EOM intact - Neck Neck: supple - Respiratory Respiratory effort: normal - Cardiovascular Rhythm: other (tachy) - Gastrointestinal General gastrointestinal: Present: soft, tender - Integumentary Integumentary: Present: dry - Musculoskeletal Musculoskeletal: normal - Neurologic Neurological: alert and oriented x3 - Psychiatric Psychiatric: appropriate mood/affect - Labs CBC & Chem 7: 07/27/19 10:07 07/27/19 10:19 Lab Results: Laboratory Results - last 24 hr 07/27/19 07/27/19 07/27/19 10:07 10:07 10:07 WBC 13.6 H RBC 2.54 L Hgb 7.9 L Hct 23.6 L MCV 93 MCH 31 MCHC 34 RDW 14.7 Plt Count 225 Lymph % (Auto) 19.8 [place] % (Auto) 5.2 Eos % (Auto) 0.3 Baso % (Auto) 0.6 Lymph # 2.7 [place] # 0.7 Eos # 0.0 Baso # 0.1 Seg Neutrophils % 74.1 H Seg Neutrophils # 10.1 H Sodium Potassium Chloride Carbon Dioxide Anion Gap BUN Creatinine Estimated GFR BUN/Creatinine Ratio Glucose Lactic Acid Calcium Phosphorus Magnesium Total Bilirubin Direct Bilirubin Indirect Bilirubin AST ALT Alkaline Phosphatase Ammonia Total Creatine Kinase CK-MB (CK-2) CK-MB (CK-2) Rel Index Total Protein Albumin Albumin/Globulin Ratio Lipase TSH Thyroxine (T4) Urine Color Urine Turbidity Urine pH Ur Specific [place] Urine Protein Urine Glucose (UA) Urine Ketones Urine Blood Urine Nitrite Ur Reducing Substances Urine Bilirubin Urine Ictotest Urine Urobilinogen Ur Leukocyte Esterase Urine WBC (Auto) Urine RBC (Auto) U Epithel Cells (Auto) Urine Mucus Urine HCG, Qual Salicylates 4.1 Urine Opiates Screen Urine Methadone Screen Acetaminophen < 5.0 L Ur Barbiturates Screen Ur Phencyclidine Scrn Ur Amphetamines Screen U Benzodiazepines Scrn Urine Cocaine Screen U Marijuana (THC) Screen Drugs of Abuse Note Plasma/Serum Alcohol Blood Type Antibody Screen Crossmatch 07/27/19 07/27/19 07/27/19 10:07 10:07 10:07 WBC RBC Hgb Hct MCV MCH MCHC RDW Plt Count Lymph % (Auto) [place] % (Auto) Eos % (Auto) Baso % (Auto) Lymph # [place] # Eos # Baso # Seg Neutrophils % Seg Neutrophils # Sodium Potassium Chloride Carbon Dioxide Anion Gap BUN Creatinine Estimated GFR BUN/Creatinine Ratio Glucose Lactic Acid 2.20 H* Calcium Phosphorus Magnesium Total Bilirubin Direct Bilirubin Indirect Bilirubin AST ALT Alkaline Phosphatase Ammonia 25.0 Total Creatine Kinase CK-MB (CK-2) CK-MB (CK-2) Rel Index Total Protein Albumin Albumin/Globulin Ratio Lipase TSH Thyroxine (T4) Urine Color Urine Turbidity Urine pH Ur Specific [place] Urine Protein Urine Glucose (UA) Urine Ketones Urine Blood Urine Nitrite Ur Reducing Substances Urine Bilirubin Urine Ictotest Urine Urobilinogen Ur Leukocyte Esterase Urine WBC (Auto) Urine RBC (Auto) U Epithel Cells (Auto) Urine Mucus Urine HCG, Qual Salicylates Urine Opiates Screen Urine Methadone Screen Acetaminophen Ur Barbiturates Screen Ur Phencyclidine Scrn Ur Amphetamines Screen U Benzodiazepines Scrn Urine Cocaine Screen U Marijuana (THC) Screen Drugs of Abuse Note Plasma/Serum Alcohol < 0.01 Blood Type Antibody Screen Crossmatch 07/27/19 07/27/19 07/27/19 10:07 10:07 10:07 WBC RBC Hgb Hct MCV MCH MCHC RDW Plt Count Lymph % (Auto) [place] % (Auto) Eos % (Auto) Baso % (Auto) Lymph # [place] # Eos # Baso # Seg Neutrophils % Seg Neutrophils # Sodium Potassium Chloride Carbon Dioxide Anion Gap BUN Creatinine Estimated GFR BUN/Creatinine Ratio Glucose Lactic Acid Calcium Phosphorus 3.60 Magnesium 1.80 Total Bilirubin Direct Bilirubin Indirect Bilirubin AST ALT Alkaline Phosphatase Ammonia Total Creatine Kinase CK-MB (CK-2) CK-MB (CK-2) Rel Index Total Protein Albumin Albumin/Globulin Ratio Lipase 33 TSH 0.881 Thyroxine (T4) 4.7 Urine Color Urine Turbidity Urine pH Ur Specific [place] Urine Protein Urine Glucose (UA) Urine Ketones Urine Blood Urine Nitrite Ur Reducing Substances Urine Bilirubin Urine Ictotest Urine Urobilinogen Ur Leukocyte Esterase Urine WBC (Auto) Urine RBC (Auto) U Epithel Cells (Auto) Urine Mucus Urine HCG, Qual Salicylates Urine Opiates Screen Urine Methadone Screen Acetaminophen Ur Barbiturates Screen Ur Phencyclidine Scrn Ur Amphetamines Screen U Benzodiazepines Scrn Urine Cocaine Screen U Marijuana (THC) Screen Drugs of Abuse Note Plasma/Serum Alcohol Blood Type Antibody Screen Crossmatch 07/27/19 07/27/19 07/27/19 10:19 11:00 13:59 WBC RBC Hgb Hct MCV MCH MCHC RDW Plt Count Lymph % (Auto) [place] % (Auto) Eos % (Auto) Baso % (Auto) Lymph # [place] # Eos # Baso # Seg Neutrophils % Seg Neutrophils # Sodium 136 L Potassium 4.0 Chloride 101.8 Carbon Dioxide 22 Anion Gap 16 BUN 17 Creatinine 0.8 Estimated GFR > 60 BUN/Creatinine Ratio 21 Glucose 91 Lactic Acid 2.00 0.80 Calcium 9.3 Phosphorus Magnesium Total Bilirubin 0.20 Direct Bilirubin < 0.2 Indirect Bilirubin 0.0 AST 28 ALT 29 Alkaline Phosphatase 101 Ammonia Total Creatine Kinase 36 CK-MB (CK-2) 1.3 CK-MB (CK-2) Rel Index 3.6 Total Protein 6.9 Albumin 3.6 L Albumin/Globulin Ratio 1.1 Lipase TSH Thyroxine (T4) Urine Color Urine Turbidity Urine pH Ur Specific [place] Urine Protein Urine Glucose (UA) Urine Ketones Urine Blood Urine Nitrite Ur Reducing Substances Urine Bilirubin Urine Ictotest Urine Urobilinogen Ur Leukocyte Esterase Urine WBC (Auto) Urine RBC (Auto) U Epithel Cells (Auto) Urine Mucus Urine HCG, Qual Salicylates Urine Opiates Screen Urine Methadone Screen Acetaminophen Ur Barbiturates Screen Ur Phencyclidine Scrn Ur Amphetamines Screen U Benzodiazepines Scrn Urine Cocaine Screen U Marijuana (THC) Screen Drugs of Abuse Note Plasma/Serum Alcohol Blood Type Antibody Screen Crossmatch 07/27/19 07/27/19 07/27/19 14:00 14:00 14:00 WBC RBC Hgb Hct MCV MCH MCHC RDW Plt Count Lymph % (Auto) [place] % (Auto) Eos % (Auto) Baso % (Auto) Lymph # [place] # Eos # Baso # Seg Neutrophils % Seg Neutrophils # Sodium Potassium Chloride Carbon Dioxide Anion Gap BUN Creatinine Estimated GFR BUN/Creatinine Ratio Glucose Lactic Acid Calcium Phosphorus Magnesium Total Bilirubin Direct Bilirubin Indirect Bilirubin AST ALT Alkaline Phosphatase Ammonia Total Creatine Kinase CK-MB (CK-2) CK-MB (CK-2) Rel Index Total Protein Albumin Albumin/Globulin Ratio Lipase TSH Thyroxine (T4) Urine Color Yellow Urine Turbidity Clear Urine pH 5.0 Ur Specific [place] 1.012 Urine Protein <15 mg/dl Urine Glucose (UA) Neg Urine Ketones Neg Urine Blood Neg Urine Nitrite Neg Ur Reducing Substances Not Reportable Urine Bilirubin Neg Urine Ictotest Not Reportable Urine Urobilinogen < 2.0 Ur Leukocyte Esterase Tr Urine WBC (Auto) 1.0 Urine RBC (Auto) < 1.0 U Epithel Cells (Auto) 1.0 Urine Mucus Few Urine HCG, Qual Negative Salicylates Urine Opiates Screen Presumptive negative Urine Methadone Screen Presumptive negative Acetaminophen Ur Barbiturates Screen Presumptive negative Ur Phencyclidine Scrn Presumptive negative Ur Amphetamines Screen Presumptive negative U Benzodiazepines Scrn Presumptive negative Urine Cocaine Screen Presumptive negative U Marijuana (THC) Screen Presumptive positive Drugs of Abuse Note Disclamer Plasma/Serum Alcohol Blood Type O POSITIVE Antibody Screen Negative Crossmatch See Detail Assessment and Plan Presentation concerning for upper GI bleeding, start PPI drip, maintain NPO status, proceed with EGD urgently given active melena and tachycardia and significant anemia Given history highest on Ddx is PUD, followed by malignancy, AVM, etc - Patient Problems (1) LUQ abdominal pain Current Visit: Yes Status: Acute (2) Melena Current Visit: Yes Status: Acute (3) Anemia Current Visit: Yes Status: Acute Qualifiers: Anemia type: unspecified type Qualified Code(s): D64.9 - Anemia, unspecified (4) History of alcohol abuse Current Visit: Yes Status: Acute (5) Upper GI bleeding Current Visit: Yes Status: Acute (6) Nausea vomiting and diarrhea Current Visit: No Status: Acute
[2019-07-27] MEDS ORDERED: LIDOCAINE MPF (2%) 20 MG/1 ML VIAL 5 ML ONE (17:30)
[2019-07-27] MEDS ORDERED: PROPOFOL 200 MG/20 ML VIAL IV ONE ×3 (17:55→18:28)
[2019-07-27] MEDS ORDERED: SODIUM CHLORIDE 0.9% 1000 ML 1,000 ML ONE (17:56)
--- NOTE | 2019-07-27 17:57 | Cat Scan Report ---
CT ABDOMEN AND PELVIS WITH CONTRAST INDICATION: abd pain anemia. TECHNIQUE: Axial CT images were obtained through the abdomen and pelvis after 100 cc Omnipaque [address] scans at this location are performed using CT dose reduction for ALARA by means of automated exposure control. COMPARISON: CT abdomen 07/27/2019 FINDINGS: LOWER CHEST: No significant abnormality. LIVER: No significant abnormality. GALLBLADDER: No significant abnormality. BILE DUCTS: No significant abnormality. PANCREAS: No significant abnormality. SPLEEN: No significant abnormality. ADRENALS: No significant abnormality. RIGHT KIDNEY and URETER: No significant abnormality. LEFT KIDNEY and URETER: No significant abnormality. STOMACH and SMALL BOWEL: Moderate thickening of gastric antrum portion of stomach characteristic for gastritis with probable nonperforated peptic ulcer disease seen on image 22 COLON: No significant abnormality. APPENDIX: Normal PERITONEUM: No free fluid. No free air. No fluid collection. LYMPH NODES: No significant adenopathy. AORTA and ARTERIES: No significant abnormality. IVC and VEINS: No significant abnormality. URINARY BLADDER: No significant abnormality. REPRODUCTIVE ORGANS: No significant abnormality. ADDITIONAL FINDINGS: None. SKELETAL SYSTEM: No significant abnormality. IMPRESSION: 1. Probable gastritis/peptic ulcer disease. Recommend EGD. Signer Name: Evelio Reardon MD Signed: 07/27/2019 5:52 PM Workstation Name: [email or web address]
--- NOTE | 2019-07-27 18:41 | Anesthesia Day of Surgery ---
Anesthesia Day of Surgery - Day of Surgery Patient Examined: Yes Patient H&P Reviewed: Yes Patient is NPO: Yes
--- NOTE | 2019-07-27 18:41 | Anesthesia Consultation ---
Anesthesia Consult and Med Hx Date of service: 07/27/19 - Airway Anesthetic Teeth Evaluation: Poor ROM Head & Neck: Adequate Mental/Hyoid Distance: Adequate Mallampati Class: Class II - Pre-Operative Health Status ASA Pre-Surgery Classification: ASA3, Emergency Proposed Anesthetic Plan: MAC - Pulmonary Hx Smoking: Yes Hx Asthma: No COPD: No Hx Pneumonia: No - Cardiovascular System Hx Hypertension: Yes Hx Heart Attack/AMI: Yes (x 2 Last 2018) - Central Nervous System Hx Psychiatric Problems: No - Gastrointestinal Hx Ulcer: Yes (upper GI bleed) - Endocrine Hx End Stage Renal Disease: No Hx Hyperthyroidism: Yes - Other Systems Hx Alcohol Use: Yes (chronic alcoholism) Hx Cancer: No
--- NOTE | 2019-07-27 18:46 | Operative Report ---
Operative Report Operative Report: DOS: 07/27/19 SURGEON: Glenroy Schofield MD EGD with hemostasis REPORT PREOPERATIVE DIAGNOSIS and POSTOPERATIVE DIAGNOSIS: Melena, UGIB ESTIMATED BLOOD LOSS: 10cc DESCRIPTION OF PROCEDURE: A high-resolution EGD scope was passed through the oropharynx, esophagus, stomach, and second portion of duodenum. The scope was carefully withdrawn. Retroflexion was performed in the stomach. At the end of the procedure, the scope was cleaned using normal technique. Vital signs monitored continuously throughout. SEDATION: Provided by Anesthesiology Services. COMPLICATIONS: None. FINDINGS: * Significant edema and superficial ulceration of the first portion of the duodenum, without active bleeding * Very large (2-3cm) cratered ulcer in the pyloric channel, with active oozing of blood from the edges of the ulcer and blood clot with possible visible vessel in the right lateral side of the ulcer base. In order to attain hemostasis, the hemospray was utilized. Using multiple applications, the entire ulcer was coated. There was no bleeding at the end of the procedure * Significant gastritis of the antrum and body of the stomach * 4cm hiatal hernia * LA grade B esophagitis of the distal 1cm of the esophagus * GE junction at 36cm from the incisors * Remainder of the exam was normal RECOMMENDATIONS: * Bleeding due to large pyloric channel ulcer, which was successfully treated with hemospray * PPI drip for 48 hours then as long as no more bleeding and HGB stable DC home on protonix 40mg PO BID and CLOSE outpatient followup * Patient will require repeat EGD in 4-6 weeks to ensure healing of the ulcer * Please order H Pylori IgG (did not biopsy due to active bleeding at time of procedure) * Please avoid NSAIDs * May start patient on full liquid diet, do not advance beyond mechanical soft diet for 5-7 days * CBC Q12 hours until stable * Transfuse PRBC for Hgb less than 7 * We will continue to follow with you daily
[2019-07-27] MEDS: SODIUM CHLORIDE 0.9% 1000 ML 1,000 ML IV SCH (20:19)
[2019-07-27] MEDS ORDERED: ACETAMINOPHEN 325 MG TAB PO PRN (20:30)
[2019-07-27] MEDS ORDERED: ONDANSETRON 4 MG/2 ML INJ IV PRN (20:30)
[2019-07-27] MEDS ORDERED: LORazepam 2 MG/ML VIAL IV PRN (20:33)
[2019-07-27] MEDS: HYDROmorphone 1 MG/1 ML INJ IV PRN (21:02)
[2019-07-27] MEDS: NICOTINE 14 MG/24 HR PATCH TD SCH (23:26)
[2019-07-28] MEDS: HYDROmorphone 1 MG/1 ML INJ IV PRN ×7 (01:03→21:25)
[2019-07-28] MEDS: VANCOMYCIN 750 MG in SODIUM CHLORIDE 0.9% 250ML 250 ML IV SCH (02:25)
[2019-07-28] MEDS: PANTOPRAZOLE 80 MG in SODIUM CHLORIDE 0.9% 100 ML IV SCH ×2 (02:41→18:14)
[2019-07-28 05:44] LABS: Basophils # (Auto) 0.1 K/mm3 (0.0-0.1); Basophils % (Auto) 0.4 % (0.0-1.8); Eosinophils # (Auto) 0.1 K/mm3 (0.0-0.4); Eosinophils % (Auto) 0.6 % (0.0-4.3); Hematocrit 24.8 % (30.3-42.9); Hemoglobin 8.4 gm/dl (10.1-14.3); Lymphocytes # (Auto) 2.2 K/mm3 (1.2-5.4); Lymphocytes % (Auto) 12.5 % (13.4-35.0); Mean Corpuscular HGB Conc 34 % (30-34); Mean Corpuscular Volume 90 fl (79-97); Monocytes % (Auto) 5.5 % (0.0-7.3); Platelet Count 175 K/mm3 (140-440); Red Blood Count 2.75 M/mm3 (3.65-5.03); Red Cell Distribution Width 14.8 % (13.2-15.2)
[2019-07-28 06:00] LABS: Alanine Aminotransferase 19 units/L (7-56); Albumin 2.9 g/dL (3.9-5); BUN/Creatinine Ratio 12; Blood Urea Nitrogen 7 mg/dL (7-17); Calcium 8.5 mg/dL (8.4-10.2); Hemolysis Index 0
--- NOTE | 2019-07-28 06:42 | Event Note ---
Date: 07/27/19 See H/p in reports GI Bleed-upper Low H/h PUD ETOH dependence--stopped 21 days ago Nicotine dependence
[2019-07-28] MEDS ORDERED: traMADol 50 MG TAB PO PRN (06:49)
--- NOTE | 2019-07-28 07:27 | History and Physical Report ---
CHIEF COMPLAINT: Black stools for the last 2 weeks. HISTORY OF PRESENT ILLNESS: A 48-year-old female recently admitted for chest pain and ETOH dependence who went against medical advice and discharged herself, comes in for 2 weeks of black stools and feeling weak. No hematemesis. Has nausea, but no vomiting. Feels lightheaded and weak. She was placed on Plavix on 07/23/2019 for unknown reasons. The patient was recently discharged after being treated for hypomagnesemia, thyrotoxicosis and ETOH dependence. PAST MEDICAL HISTORY: As mentioned, significant for hypertension, coronary artery disease, hyperlipidemia, and hypothyroidism. PAST SURGICAL HISTORY: . SOCIAL HISTORY: Stops alcohol 21 days ago, smokes over a pack a day. FAMILY HISTORY: Hypertension. CURRENT MEDICATIONS: Plavix 75 mg once a day, propylthiouracil 50 mg once a day. Amlodipine 5 mg once a day. Lipitor 40 mg once a day. REVIEW OF SYSTEMS: Significant for black tarry stools and generalized weakness and feeling lightheaded when standing. PHYSICAL EXAMINATION: GENERAL: Middle-aged female, cooperative during examination. VITAL SIGNS: Blood pressure is 111/58, temperature is 98.3, pulse is 94, respirations are 20, sats are 100%. HEENT: Slightly pale mucous membranes. NECK: Supple, no lymphadenopathy, no thyromegaly. LUNGS: Clear to auscultation and percussion. Good air entry. CARDIOVASCULAR: S1, S2 heard. No gallop, no murmur, no rub. Apical impulse in left fifth intercostal space and midclavicular line. ABDOMEN: Slight tenderness in the epigastric region present. Bowel sounds are normal. Hernial orifices are normal. EXTREMITIES: Good pedal pulses. No pedal edema. CENTRAL NERVOUS SYSTEM: Alert and oriented x 4, nonfocal exam. SKIN: Normal. LABORATORY DATA: Significant for white count of 13,600, H and H of 7.9 and 23.6. Electrolytes are normal. Sodium is slightly low at 136. Urine normal. Drug screen positive for marijuana. Chest x-ray, no acute findings. CT of the abdomen, probable gastritis/peptic ulcer disease. Recommend EGD. ASSESSMENT AND PLAN: 1. Upper gastrointestinal bleed, possibly secondary to peptic ulcer disease. GI consulted. The patient may go for endoscopy. IV Protonix drip. 2. Symptomatic anemia. Transfuse as necessary. No transfusion at this point. Monitor hemoglobin and hematocrit. 3. Hyperthyroidism. Continue propylthiouracil. 4. Hypertension. Continue amlodipine. 5. Hyperlipidemia. Continue statins after the endoscopy if cleared for oral intake. 6. Chronic pain. Continue tramadol. 7. Coronary artery disease. Continue isosorbide mononitrate, hold Plavix. 8. Deep venous thrombosis prophylaxis, SCDs only. 9. Nicotine dependence. Nicoderm patch. 10. ETOH dependence. The patient states she is out from alcohol for 21 days. Ativan for agitation. No CIWA protocol was initiated. JOB# [id number] [employer]
[2019-07-28 08:12] LABS: Hematocrit 25.8 % (30.3-42.9); Hemoglobin 8.6 gm/dl (10.1-14.3)
--- NOTE | 2019-07-28 08:34 | Post Anesthesia Evaluation ---
- Post Anesthesia Evaluation Patient Participated: Yes Airway Patent: Yes Stable Respiratory Function: Yes Nausea/Vomiting: No Temp > 96.8F: Yes Pain Manageable: Yes Adequeate Hydration: Yes Anesthesia Complications: No Block Receding Appropriately: Not Applicable Patient on Ventilator: No
--- NOTE | 2019-07-28 09:57 | Gastroenterology Progress Note ---
<JENNIE WHITEHEAD - Last Filed: 07/28/19 09:59> Assessment and Plan 1.UGIB/melena 2.acute blood loss anemia 3.LUQ abdominal pain 4.ETOH abuse -H/H 8.6/25.8-appropriate rise s/p transfusion 1 unit PRBCs -continue to monitor H/H and transfuse as needed -no active signs of bleeding overnight or this am -s/p EGD yesterday (07/27/19) that showed: * Significant edema and superficial ulceration of the first portion of the duodenum, without active bleeding * Very large (2-3cm) cratered ulcer in the pyloric channel, with active oozing o f blood from the edges of the ulcer and blood clot with possible visible vessel in the right lateral side of the ulcer base. In order to attain hemostasis, the hemospray was utilized. Using multiple applications, the entire ulcer was coated. There was no bleeding at the end of the procedure * Significant gastritis of the antrum and body of the stomach * 4cm hiatal hernia * LA grade B esophagitis of the distal 1cm of the esophagus * GE junction at 36cm from the incisors * Remainder of the exam was normal -continue protonix drip today then transition to PO BID tomorrow -avoid NSAIDs -continue to hold Plavix; if patient high risk to be off per cardiology, then okay to resume in 1 week but if she is low risk would recommend not resuming until after undergoing recommended repeat EGD as outpatient in ~6 weeks to ensure healing of ulcer -if no further bleeding, okay to advance diet to GI soft this afternoon (would not advance past soft x 5-7days) -continue supportive care -alcohol and tobacco cessation discussed/encouraged with patient -will follow Subjective Date of service: 07/28/19 Principal diagnosis: UGIB Interval history: Patient sitting in bed this am w/o acute distress and family at bedside. Reports some mild continued upper abd pain/discomfort but no N/V or active signs of bleeding overnight or this am. Tolerating liquids. Objective - Constitutional Vitals: Temp Pulse Resp BP Pulse Ox 98.2 F 87 18 122/64 100 07/28/19 08:12 07/28/19 08:12 07/28/19 08:12 07/28/19 08:12 07/28/19 08:12 General appearance: no acute distress - EENT Eyes: PERRL, EOM intact ENT: hearing intact - Respiratory Respiratory effort: normal - Cardiovascular Rhythm: regular - Gastrointestinal General gastrointestinal: Present: soft, tender (slight TTP), non-distended, normal bowel sounds - Integumentary Integumentary: Present: warm, dry - Neurologic Neurological: alert and oriented x3 - Labs CBC & Chem 7: 07/28/19 07:45 07/28/19 05:24 Labs: Laboratory Results - last 24 hr 07/27/19 07/27/19 07/27/19 10:07 10:07 10:07 WBC 13.6 H RBC 2.54 L Hgb 7.9 L Hct 23.6 L MCV 93 MCH 31 MCHC 34 RDW 14.7 Plt Count 225 Lymph % (Auto) 19.8 Hardy % (Auto) 5.2 Eos % (Auto) 0.3 Baso % (Auto) 0.6 Lymph # 2.7 Hardy # 0.7 Eos # 0.0 Baso # 0.1 Seg Neutrophils % 74.1 H Seg Neutrophils # 10.1 H Sodium Potassium Chloride Carbon Dioxide Anion Gap BUN Creatinine Estimated GFR BUN/Creatinine Ratio Glucose Lactic Acid Calcium Phosphorus Magnesium Total Bilirubin Direct Bilirubin Indirect Bilirubin AST ALT Alkaline Phosphatase Ammonia Total Creatine Kinase CK-MB (CK-2) CK-MB (CK-2) Rel Index Total Protein Albumin Albumin/Globulin Ratio Lipase TSH Thyroxine (T4) Urine Color Urine Turbidity Urine pH Ur Specific [place] Urine Protein Urine Glucose (UA) Urine Ketones Urine Blood Urine Nitrite Ur Reducing Substances Urine Bilirubin Urine Ictotest Urine Urobilinogen Ur Leukocyte Esterase Urine WBC (Auto) Urine RBC (Auto) U Epithel Cells (Auto) Urine Mucus Urine HCG, Qual Salicylates 4.1 Urine Opiates Screen Urine Methadone Screen Acetaminophen < 5.0 L Ur Barbiturates Screen Ur Phencyclidine Scrn Ur Amphetamines Screen U Benzodiazepines Scrn Urine Cocaine Screen U Marijuana (THC) Screen Drugs of Abuse Note Plasma/Serum Alcohol Blood Type Antibody Screen Crossmatch 07/27/19 07/27/19 07/27/19 10:07 10:07 10:07 WBC RBC Hgb Hct MCV MCH MCHC RDW Plt Count Lymph % (Auto) Hardy % (Auto) Eos % (Auto) Baso % (Auto) Lymph # Hardy # Eos # Baso # Seg Neutrophils % Seg Neutrophils # Sodium Potassium Chloride Carbon Dioxide Anion Gap BUN Creatinine Estimated GFR BUN/Creatinine Ratio Glucose Lactic Acid 2.20 H* Calcium Phosphorus Magnesium Total Bilirubin Direct Bilirubin Indirect Bilirubin AST ALT Alkaline Phosphatase Ammonia 25.0 Total Creatine Kinase CK-MB (CK-2) CK-MB (CK-2) Rel Index Total Protein Albumin Albumin/Globulin Ratio Lipase TSH Thyroxine (T4) Urine Color Urine Turbidity Urine pH Ur Specific [place] Urine Protein Urine Glucose (UA) Urine Ketones Urine Blood Urine Nitrite Ur Reducing Substances Urine Bilirubin Urine Ictotest Urine Urobilinogen Ur Leukocyte Esterase Urine WBC (Auto) Urine RBC (Auto) U Epithel Cells (Auto) Urine Mucus Urine HCG, Qual Salicylates Urine Opiates Screen Urine Methadone Screen Acetaminophen Ur Barbiturates Screen Ur Phencyclidine Scrn Ur Amphetamines Screen U Benzodiazepines Scrn Urine Cocaine Screen U Marijuana (THC) Screen Drugs of Abuse Note Plasma/Serum Alcohol < 0.01 Blood Type Antibody Screen Crossmatch 07/27/19 07/27/19 07/27/19 10:07 10:07 10:07 WBC RBC Hgb Hct MCV MCH MCHC RDW Plt Count Lymph % (Auto) Hardy % (Auto) Eos % (Auto) Baso % (Auto) Lymph # Hardy # Eos # Baso # Seg Neutrophils % Seg Neutrophils # Sodium Potassium Chloride Carbon Dioxide Anion Gap BUN Creatinine Estimated GFR BUN/Creatinine Ratio Glucose Lactic Acid Calcium Phosphorus 3.60 Magnesium 1.80 Total Bilirubin Direct Bilirubin Indirect Bilirubin AST ALT Alkaline Phosphatase Ammonia Total Creatine Kinase CK-MB (CK-2) CK-MB (CK-2) Rel Index Total Protein Albumin Albumin/Globulin Ratio Lipase 33 TSH 0.881 Thyroxine (T4) 4.7 Urine Color Urine Turbidity Urine pH Ur Specific [place] Urine Protein Urine Glucose (UA) Urine Ketones Urine Blood Urine Nitrite Ur Reducing Substances Urine Bilirubin Urine Ictotest Urine Urobilinogen Ur Leukocyte Esterase Urine WBC (Auto) Urine RBC (Auto) U Epithel Cells (Auto) Urine Mucus Urine HCG, Qual Salicylates Urine Opiates Screen Urine Methadone Screen Acetaminophen Ur Barbiturates Screen Ur Phencyclidine Scrn Ur Amphetamines Screen U Benzodiazepines Scrn Urine Cocaine Screen U Marijuana (THC) Screen Drugs of Abuse Note Plasma/Serum Alcohol Blood Type Antibody Screen Crossmatch 07/27/19 07/27/19 07/27/19 10:19 11:00 13:59 WBC RBC Hgb Hct MCV MCH MCHC RDW Plt Count Lymph % (Auto) Hardy % (Auto) Eos % (Auto) Baso % (Auto) Lymph # Hardy # Eos # Baso # Seg Neutrophils % Seg Neutrophils # Sodium 136 L Potassium 4.0 Chloride 101.8 Carbon Dioxide 22 Anion Gap 16 BUN 17 Creatinine 0.8 Estimated GFR > 60 BUN/Creatinine Ratio 21 Glucose 91 Lactic Acid 2.00 0.80 Calcium 9.3 Phosphorus Magnesium Total Bilirubin 0.20 Direct Bilirubin < 0.2 Indirect Bilirubin 0.0 AST 28 ALT 29 Alkaline Phosphatase 101 Ammonia Total Creatine Kinase 36 CK-MB (CK-2) 1.3 CK-MB (CK-2) Rel Index 3.6 Total Protein 6.9 Albumin 3.6 L Albumin/Globulin Ratio 1.1 Lipase TSH Thyroxine (T4) Urine Color Urine Turbidity Urine pH Ur Specific [place] Urine Protein Urine Glucose (UA) Urine Ketones Urine Blood Urine Nitrite Ur Reducing Substances Urine Bilirubin Urine Ictotest Urine Urobilinogen Ur Leukocyte Esterase Urine WBC (Auto) Urine RBC (Auto) U Epithel Cells (Auto) Urine Mucus Urine HCG, Qual Salicylates Urine Opiates Screen Urine Methadone Screen Acetaminophen Ur Barbiturates Screen Ur Phencyclidine Scrn Ur Amphetamines Screen U Benzodiazepines Scrn Urine Cocaine Screen U Marijuana (THC) Screen Drugs of Abuse Note Plasma/Serum Alcohol Blood Type Antibody Screen Crossmatch 07/27/19 07/27/19 07/27/19 14:00 14:00 14:00 WBC RBC Hgb Hct MCV MCH MCHC RDW Plt Count Lymph % (Auto) Hardy % (Auto) Eos % (Auto) Baso % (Auto) Lymph # Hardy # Eos # Baso # Seg Neutrophils % Seg Neutrophils # Sodium Potassium Chloride Carbon Dioxide Anion Gap BUN Creatinine Estimated GFR BUN/Creatinine Ratio Glucose Lactic Acid Calcium Phosphorus Magnesium Total Bilirubin Direct Bilirubin Indirect Bilirubin AST ALT Alkaline Phosphatase Ammonia Total Creatine Kinase CK-MB (CK-2) CK-MB (CK-2) Rel Index Total Protein Albumin Albumin/Globulin Ratio Lipase TSH Thyroxine (T4) Urine Color Yellow Urine Turbidity Clear Urine pH 5.0 Ur Specific [place] 1.012 Urine Protein <15 mg/dl Urine Glucose (UA) Neg Urine Ketones Neg Urine Blood Neg Urine Nitrite Neg Ur Reducing Substances Not Reportable Urine Bilirubin Neg Urine Ictotest Not Reportable Urine Urobilinogen < 2.0 Ur Leukocyte Esterase Tr Urine WBC (Auto) 1.0 Urine RBC (Auto) < 1.0 U Epithel Cells (Auto) 1.0 Urine Mucus Few Urine HCG, Qual Negative Salicylates Urine Opiates Screen Presumptive negative Urine Methadone Screen Presumptive negative Acetaminophen Ur Barbiturates Screen Presumptive negative Ur Phencyclidine Scrn Presumptive negative Ur Amphetamines Screen Presumptive negative U Benzodiazepines Scrn Presumptive negative Urine Cocaine Screen Presumptive negative U Marijuana (THC) Screen Presumptive positive Drugs of Abuse Note Disclamer Plasma/Serum Alcohol Blood Type O POSITIVE Antibody Screen Negative Crossmatch See Detail 07/28/19 07/28/19 07/28/19 05:24 05:24 07:45 WBC 17.6 H RBC 2.75 L Hgb 8.4 L 8.6 L Hct 24.8 L 25.8 L MCV 90 MCH 31 MCHC 34 RDW 14.8 Plt Count 175 Lymph % (Auto) 12.5 L Hardy % (Auto) 5.5 Eos % (Auto) 0.6 Baso % (Auto) 0.4 Lymph # 2.2 Hardy # 1.0 H Eos # 0.1 Baso # 0.1 Seg Neutrophils % 81.0 H Seg Neutrophils # 14.2 H Sodium 140 Potassium 3.4 L Chloride 107.1 H Carbon Dioxide 21 L Anion Gap 15 BUN 7 Creatinine 0.6 L Estimated GFR > 60 BUN/Creatinine Ratio 12 Glucose 82 Lactic Acid Calcium 8.5 Phosphorus Magnesium Total Bilirubin 0.20 Direct Bilirubin Indirect Bilirubin AST 17 ALT 19 Alkaline Phosphatase 89 Ammonia Total Creatine Kinase CK-MB (CK-2) CK-MB (CK-2) Rel Index Total Protein 5.8 L Albumin 2.9 L Albumin/Globulin Ratio 1.0 Lipase TSH Thyroxine (T4) Urine Color Urine Turbidity Urine pH Ur Specific [place] Urine Protein Urine Glucose (UA) Urine Ketones Urine Blood Urine Nitrite Ur Reducing Substances Urine Bilirubin Urine Ictotest Urine Urobilinogen Ur Leukocyte Esterase Urine WBC (Auto) Urine RBC (Auto) U Epithel Cells (Auto) Urine Mucus Urine HCG, Qual Salicylates Urine Opiates Screen Urine Methadone Screen Acetaminophen Ur Barbiturates Screen Ur Phencyclidine Scrn Ur Amphetamines Screen U Benzodiazepines Scrn Urine Cocaine Screen U Marijuana (THC) Screen Drugs of Abuse Note Plasma/Serum Alcohol Blood Type Antibody Screen Crossmatch <GABBY HOOPER - Last Filed: 07/28/19 11:40> Assessment and Plan Patient seen and examined. I have reviewed the advanced practitioner's evaluation, assessment, and plan, and agree with them. I note the following additions: no more bleeding so GI intervention has worked for now with hemostasis achieved. Continue PPI drip through tomorrow and then as long as Hgb remains stable tomorrow can DC with protonix 40mg PO BID and close outpatient followup with me, she will need repeat EGD in 4-6 weeks to ensure healing of the ulcer Avoid NSAIDs -continue to hold Plavix; if patient high risk to be off per cardiology, then okay to resume in 1 week but if she is low risk would recommend not resuming until after undergoing recommended repeat EGD as outpatient in ~6 weeks to ensure healing of ulcer - Patient Problems (1) LUQ abdominal pain Current Visit: Yes Status: Acute (2) Melena Current Visit: Yes Status: Acute (3) Anemia Current Visit: Yes Status: Acute Qualifiers: Anemia type: unspecified type Qualified Code(s): D64.9 - Anemia, unspecified (4) History of alcohol abuse Current Visit: Yes Status: Acute (5) Upper GI bleeding Current Visit: Yes Status: Acute (6) Nausea vomiting and diarrhea Current Visit: No Status: Acute Objective - Constitutional Vitals: Temp Pulse Resp BP Pulse Ox 98.2 F 87 18 122/64 100 07/28/19 08:12 07/28/19 10:18 07/28/19 08:12 07/28/19 10:18 07/28/19 08:12 - Labs CBC & Chem 7: 07/28/19 07:45 07/28/19 05:24 Labs: Laboratory Results - last 24 hr 07/27/19 07/27/19 07/27/19 10:07 11:00 13:59 WBC RBC Hgb Hct MCV MCH MCHC RDW Plt Count Lymph % (Auto) Hardy % (Auto) Eos % (Auto) Baso % (Auto) Lymph # Hardy # Eos # Baso # Seg Neutrophils % Seg Neutrophils # Sodium Potassium Chloride Carbon Dioxide Anion Gap BUN Creatinine Estimated GFR BUN/Creatinine Ratio Glucose Lactic Acid 2.00 0.80 Calcium Total Bilirubin AST ALT Alkaline Phosphatase Total Protein Albumin Albumin/Globulin Ratio Thyroxine (T4) 4.7 Urine Color Urine Turbidity Urine pH Ur Specific [place] Urine Protein Urine Glucose (UA) Urine Ketones Urine Blood Urine Nitrite Ur Reducing Substances Urine Bilirubin Urine Ictotest Urine Urobilinogen Ur Leukocyte Esterase Urine WBC (Auto) Urine RBC (Auto) U Epithel Cells (Auto) Urine Mucus Urine HCG, Qual Urine Opiates Screen Urine Methadone Screen Ur Barbiturates Screen Ur Phencyclidine Scrn Ur Amphetamines Screen U Benzodiazepines Scrn Urine Cocaine Screen U Marijuana (THC) Screen Drugs of Abuse Note Blood Type Antibody Screen Crossmatch 07/27/19 07/27/19 07/27/19 14:00 14:00 14:00 WBC RBC Hgb Hct MCV MCH MCHC RDW Plt Count Lymph % (Auto) Hardy % (Auto) Eos % (Auto) Baso % (Auto) Lymph # Hardy # Eos # Baso # Seg Neutrophils % Seg Neutrophils # Sodium Potassium Chloride Carbon Dioxide Anion Gap BUN Creatinine Estimated GFR BUN/Creatinine Ratio Glucose Lactic Acid Calcium Total Bilirubin AST ALT Alkaline Phosphatase Total Protein Albumin Albumin/Globulin Ratio Thyroxine (T4) Urine Color Yellow Urine Turbidity Clear Urine pH 5.0 Ur Specific [place] 1.012 Urine Protein <15 mg/dl Urine Glucose (UA) Neg Urine Ketones Neg Urine Blood Neg Urine Nitrite Neg Ur Reducing Substances Not Reportable Urine Bilirubin Neg Urine Ictotest Not Reportable Urine Urobilinogen < 2.0 Ur Leukocyte Esterase Tr Urine WBC (Auto) 1.0 Urine RBC (Auto) < 1.0 U Epithel Cells (Auto) 1.0 Urine Mucus Few Urine HCG, Qual Negative Urine Opiates Screen Presumptive negative Urine Methadone Screen Presumptive negative Ur Barbiturates Screen Presumptive negative Ur Phencyclidine Scrn Presumptive negative Ur Amphetamines Screen Presumptive negative U Benzodiazepines Scrn Presumptive negative Urine Cocaine Screen Presumptive negative U Marijuana (THC) Screen Presumptive positive Drugs of Abuse Note Disclamer Blood Type O POSITIVE Antibody Screen Negative Crossmatch See Detail 07/28/19 07/28/19 07/28/19 05:24 05:24 07:45 WBC 17.6 H RBC 2.75 L Hgb 8.4 L 8.6 L Hct 24.8 L 25.8 L MCV 90 MCH 31 MCHC 34 RDW 14.8 Plt Count 175 Lymph % (Auto) 12.5 L Hardy % (Auto) 5.5 Eos % (Auto) 0.6 Baso % (Auto) 0.4 Lymph # 2.2 Hardy # 1.0 H Eos # 0.1 Baso # 0.1 Seg Neutrophils % 81.0 H Seg Neutrophils # 14.2 H Sodium 140 Potassium 3.4 L Chloride 107.1 H Carbon Dioxide 21 L Anion Gap 15 BUN 7 Creatinine 0.6 L Estimated GFR > 60 BUN/Creatinine Ratio 12 Glucose 82 Lactic Acid Calcium 8.5 Total Bilirubin 0.20 AST 17 ALT 19 Alkaline Phosphatase 89 Total Protein 5.8 L Albumin 2.9 L Albumin/Globulin Ratio 1.0 Thyroxine (T4) Urine Color Urine Turbidity Urine pH Ur Specific [place] Urine Protein Urine Glucose (UA) Urine Ketones Urine Blood Urine Nitrite Ur Reducing Substances Urine Bilirubin Urine Ictotest Urine Urobilinogen Ur Leukocyte Esterase Urine WBC (Auto) Urine RBC (Auto) U Epithel Cells (Auto) Urine Mucus Urine HCG, Qual Urine Opiates Screen Urine Methadone Screen Ur Barbiturates Screen Ur Phencyclidine Scrn Ur Amphetamines Screen U Benzodiazepines Scrn Urine Cocaine Screen U Marijuana (THC) Screen Drugs of Abuse Note Blood Type Antibody Screen Crossmatch
[2019-07-28] MEDS ORDERED: PROPYLTHIOURACIL 50 MG PO SCH (10:00)
[2019-07-28] MEDS ORDERED: NON-FORMULARY EACH (Isosorbide Mononitrate 30 MG) PO SCH (10:00)
[2019-07-28] MEDS: propylthiouraciL 50 MG TAB PO SCH (10:18)
[2019-07-28] MEDS: amLODIPine 5 MG TAB PO SCH (10:18)
[2019-07-28 14:51] LABS: Hematocrit 25.4 % (30.3-42.9); Hemoglobin 8.4 gm/dl (10.1-14.3)
--- NOTE | 2019-07-28 17:44 | Progress Note ---
Assessment and Plan Assessment and plan: Patient is a 48 yo woman with a history of tobacco dependency, prior alcohol abuse, substantial daily NSAID usage, [place] on Aspirin also who presented with melena * EGD yesterday (07/27/19) that showed: Significant edema and superficial ulceration of the first portion of the duodenum, without active bleeding. Very large (2-3cm) cratered ulcer in the pyloric channel, with active oozing of blood from the edges of the ulcer and blood clot with possible visible vessel in the right lateral side of the ulcer base. In order to attain hemostasis, the hemospray was utilized. Using multiple applications, the entire ulcer was coated. There was no bleeding at the end of the procedure. Significant gastritis of the antrum and body of the stomach, 4cm hiatal hernia, LA grade B esophagitis of the distal 1cm of the esophagus, GE junction at 36cm from the incisors, Remainder of the exam was normal Acute blood loss anemia due to GI hemorrhage: treated with PPI IV drip, hemospray at above Gastric ulcer with visible vessel related to NSAIDs use: counseling and education done. avoid NSAIDs Tobacco dependency: student success counselor on stopping H/o AMI: hold aspirin and plavix h/o Alcohol abuse: treat with CIWA -continue protonix drip today then transition to PO BID tomorrow -continue to hold Plavix; if patient high risk to be off per cardiology, then okay to resume in 1 week but if she is low risk would recommend not resuming until after undergoing recommended repeat EGD as outpatient in ~6 weeks to ensure healing of ulcer -if no further bleeding, okay to advance diet to GI soft this afternoon (would not advance past soft x 5-7days) -alcohol and tobacco cessation discussed/encouraged with patient History Interval history: Patient was seen and examined. Follow-up on current diagnosis of PUD. No overnight events reported to me. Patient denies any chest pain, shortness breath, nausea/vomiting or severe headaches. Imaging, nursing note, chart, labs and old chart reviewed. Discussed with patient. Isabel at bedside. Hospitalist Physical - Physical exam Narrative exam: Gen: WDWN, NAD, Awake, Alert, Orientated HEENT: NCAT, EOMI, PERRL, OP Clear Neck: supple, no adenopathy, no thyromegaly, no JVD CVS/Heart: RRR, normal S1S2, pulses present bilaterally Chest/Lungs: CTA B, Symmetrical chest expansion, good air entry bilaterally GI/Abdomen: soft, NTND, good bowel sounds, no guarding or rebound /Bladder: no suprapubic tenderness, no CVA or paraspinal tenderness Extermity/Skin: no c/c/e, no obvious rash MSK: FROM x 4 Neuro: CN 2-12 grossly intact, no new focal deficits Psych: calm - Constitutional Vitals: Temp Pulse Resp BP Pulse Ox 97.8 F 86 18 127/76 100 07/28/19 16:41 07/28/19 16:41 07/28/19 16:41 07/28/19 16:41 07/28/19 16:41 Results - Labs CBC & Chem 7: 07/29/19 05:36 07/28/19 05:24 Labs: Laboratory Last Values WBC 17.6 K/mm3 (4.5-11.0) H 07/28/19 05:24 RBC 2.75 M/mm3 (3.65-5.03) L 07/28/19 05:24 Hgb 8.4 gm/dl (10.1-14.3) L 07/28/19 14:27 Hct 25.4 % (30.3-42.9) L 07/28/19 14:27 MCV 90 fl (79-97) 07/28/19 05:24 MCH 31 pg (28-32) 07/28/19 05:24 MCHC 34 % (30-34) 07/28/19 05:24 RDW 14.8 % (13.2-15.2) 07/28/19 05:24 Plt Count 175 K/mm3 (140-440) 07/28/19 05:24 Lymph % (Auto) 12.5 % (13.4-35.0) L 07/28/19 05:24 [place] % (Auto) 5.5 % (0.0-7.3) 07/28/19 05:24 Eos % (Auto) 0.6 % (0.0-4.3) 07/28/19 05:24 Baso % (Auto) 0.4 % (0.0-1.8) 07/28/19 05:24 Lymph # 2.2 K/mm3 (1.2-5.4) 07/28/19 05:24 [place] # 1.0 K/mm3 (0.0-0.8) H 07/28/19 05:24 Eos # 0.1 K/mm3 (0.0-0.4) 07/28/19 05:24 Baso # 0.1 K/mm3 (0.0-0.1) 07/28/19 05:24 Seg Neutrophils % 81.0 % (40.0-70.0) H 07/28/19 05:24 Seg Neutrophils # 14.2 K/mm3 (1.8-7.7) H 07/28/19 05:24 Sodium 140 mmol/L (137-145) 07/28/19 05:24 Potassium 3.4 mmol/L (3.6-5.0) L 07/28/19 05:24 Chloride 107.1 mmol/L (98-107) H 07/28/19 05:24 Carbon Dioxide 21 mmol/L (22-30) L 07/28/19 05:24 Anion Gap 15 mmol/L 07/28/19 05:24 BUN 7 mg/dL (7-17) 07/28/19 05:24 Creatinine 0.6 mg/dL (0.7-1.2) L 07/28/19 05:24 Estimated GFR > 60 ml/min 07/28/19 05:24 BUN/Creatinine Ratio 12 % 07/28/19 05:24 Glucose 82 mg/dL (65-100) 07/28/19 05:24 Lactic Acid 0.80 mmol/L (0.7-2.0) 07/27/19 13:59 Calcium 8.5 mg/dL (8.4-10.2) 07/28/19 05:24 Phosphorus 3.60 mg/dL (2.5-4.5) 07/27/19 10:07 Magnesium 1.80 mg/dL (1.7-2.3) 07/27/19 10:07 Total Bilirubin 0.20 mg/dL (0.1-1.2) 07/28/19 05:24 Direct Bilirubin < 0.2 mg/dL (0-0.2) 07/27/19 10:19 Indirect Bilirubin 0.0 mg/dL 07/27/19 10:19 AST 17 units/L (5-40) 07/28/19 05:24 ALT 19 units/L (7-56) 07/28/19 05:24 Alkaline Phosphatase 89 units/L (35-129) 07/28/19 05:24 Ammonia 25.0 umol/L (25-60) 07/27/19 10:07 Total Creatine Kinase 36 units/L (30-135) 07/27/19 10:19 CK-MB (CK-2) 1.3 ng/mL (0.0-4.0) 07/27/19 10:19 CK-MB (CK-2) Rel Index 3.6 (0-4) 07/27/19 10:19 Total Protein 5.8 g/dL (6.3-8.2) L 07/28/19 05:24 Albumin 2.9 g/dL (3.9-5) L 07/28/19 05:24 Albumin/Globulin Ratio 1.0 % 07/28/19 05:24 Lipase 33 units/L (13-60) 07/27/19 10:07 TSH 0.881 mlU/mL (0.270-4.200) 07/27/19 10:07 Thyroxine (T4) 4.7 ug/dL (4.0-12.0) 07/27/19 10:07 Urine Color Yellow (Yellow) 07/27/19 14:00 Urine Turbidity Clear (Clear) 07/27/19 14:00 Urine pH 5.0 (5.0-7.0) 07/27/19 14:00 Ur Specific [place] 1.012 (1.003-1.030) 07/27/19 14:00 Urine Protein <15 mg/dl mg/dL (Negative) 07/27/19 14:00 Urine Glucose (UA) Neg mg/dL (Negative) 07/27/19 14:00 Urine Ketones Neg mg/dL (Negative) 07/27/19 14:00 Urine Blood Neg (Negative) 07/27/19 14:00 Urine Nitrite Neg (Negative) 07/27/19 14:00 Ur Reducing Substances Not Reportable 07/27/19 14:00 Urine Bilirubin Neg (Negative) 07/27/19 14:00 Urine Ictotest Not Reportable 07/27/19 14:00 Urine Urobilinogen < 2.0 mg/dL (<2.0) 07/27/19 14:00 Ur Leukocyte Esterase Tr (Negative) 07/27/19 14:00 Urine WBC (Auto) 1.0 /HPF (0.0-6.0) 07/27/19 14:00 Urine RBC (Auto) < 1.0 /HPF (0.0-6.0) 07/27/19 14:00 U Epithel Cells (Auto) 1.0 /HPF (0-13.0) 07/27/19 14:00 Urine Mucus Few /HPF 07/27/19 14:00 Urine HCG, Qual Negative (Negative) 07/27/19 14:00 Salicylates 4.1 mg/dL (2.8-20.0) 07/27/19 10:07 Urine Opiates Screen Presumptive negative 07/27/19 14:00 Urine Methadone Screen Presumptive negative 07/27/19 14:00 Acetaminophen < 5.0 ug/mL (10.0-30.0) L 07/27/19 10:07 Ur Barbiturates Screen Presumptive negative 07/27/19 14:00 Ur Phencyclidine Scrn Presumptive negative 07/27/19 14:00 Ur Amphetamines Screen Presumptive negative 07/27/19 14:00 U Benzodiazepines Scrn Presumptive negative 07/27/19 14:00 Urine Cocaine Screen Presumptive negative 07/27/19 14:00 U Marijuana (THC) Screen Presumptive positive 07/27/19 14:00 Drugs of Abuse Note Disclamer 07/27/19 14:00 Plasma/Serum Alcohol < 0.01 % (0-0.07) 07/27/19 10:07 Blood Type O POSITIVE 07/27/19 14:00 Antibody Screen Negative 07/27/19 14:00 Crossmatch See Detail 07/27/19 14:00 Active Medications - Current Medications Current Medications: Generic Name Dose Route Start Last Admin Trade Name Freq PRN Reason Stop Dose Admin Acetaminophen 650 mg 07/27/19 20:30 Tylenol PO Q4H PRN Pain MILD(1-3)/Fever >100.5/FOX Amlodipine Besylate 5 mg 07/28/19 10:00 07/28/19 10:18 Amlodipine PO 5 mg DAILY ANA Administration Atorvastatin Calcium 40 mg 07/28/19 22:00 Lipitor PO QHS ANA Hydromorphone HCl 1 mg 07/27/19 20:30 07/28/19 15:12 Dilaudid IV 1 mg Q3H PRN Administration Pain , Severe (7-10) Sodium Chloride 1,000 mls @ 50 mls/hr 07/27/19 18:00 07/27/19 20:19 Nacl 0.9% 1000 Ml IV 50 mls/hr DIRECT ANA Administration Pantoprazole Sodium 80 mg/ 100 mls @ 10 mls/hr 07/27/19 20:00 07/28/19 02:41 Sodium Chloride IV 8 mg/hr DIRECT ANA 10 mls/hr Administration 8 MG/HR Isosorbide Mononitrate 30 mg 07/28/19 10:00 07/28/19 10:18 Imdur PO 30 mg DAILY ANA Administration Lorazepam 1 mg 07/27/19 20:33 Ativan IV Q4H PRN Anxiety Nicotine 14 mg 07/27/19 23:00 07/27/19 23:26 Habitrol TD 14 mg QDAY@2200 ANA Administration Ondansetron HCl 4 mg 07/27/19 20:30 Zofran IV Q3H PRN Nausea And Vomiting Propylthiouracil 50 mg 07/28/19 10:00 07/28/19 10:18 Propylthiouracil PO 50 mg DAILY ANA Administration Sodium Chloride 10 ml 07/27/19 22:00 07/28/19 10:19 Sodium Chloride Flush Syringe 10 Ml IV 10 ml BID ANA Administration Sodium Chloride 10 ml 07/27/19 20:30 Sodium Chloride Flush Syringe 10 Ml IV PRN PRN LINE FLUSH Tramadol HCl 50 mg 07/28/19 06:49 Ultram PO Q6HR PRN Pain, Moderate (4-6) Nutrition/Malnutrition Assess - Dietary Evaluation Nutrition/Malnutrition Findings: Nutrition Notes Start: 07/28/19 10:38 Freq: Status: Active Protocol: Document 07/28/19 10:38 DW (Rec: 07/28/19 11:37 DW [id number]) Co-Sign 07/28/19 10:38 LP Nutrition Notes Need for Assessment generated from: triage register nurse,MST Initial or Follow up Assessment Current Diagnosis Coronary Artery Disease, Hypertension,Hyperlipidemia Other Pertinent Diagnosis Hypothyroidism, hx ETOH abuse Current Diet Mechanical Soft Labs/Tests K 3.4 Cr 0.6 Pertinent Medications Reviewed Height 5 ft 9 in Weight 57.9 kg [place] Body Weight (kg) 65.90 BMI 18.8 Weight change and time frame 3.7% wt loss in 3 weeks Subjective/Other Information RN screen for MST 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 Upon arrival pt was on liquid diet. Pt stated she consumed all her liquids for breakfast and was still hungry . Pt also stated MD would advance diet. Noted diet change to Mechanical Soft. Pt stated she lost 5 pounds in 3 weeks. Burn Absent Trauma Absent GI Symptoms None Minimum of two criteria Yes Energy Intake (severe) < or equal to 50% Estimated Energy Requirement > or equal to 5 days Interpretation of Weight Loss (non- 1-2% in 1 week severe) #1 Nutrition Diagnosis Malnutrition Etiology poor oral intake As Evidenced by Signs and Symptoms 3.7% wt loss in 3 weeks, <50% intake EER >5 days Is patient on ventilator? No Is Patient Ambulatory and/or Out of Bed Yes REE-([facility]-ambulatory/OOB) [ 1648.894 NUTR.MSJOOB] Kcal/Kg value to use for calculation 35 Approximate Energy Requirements Using 2026 kcal/Kg Calculation Used for Recommendations Kcal/kg Additional Notes PRO needs: 69-87g (1.2-1.5 g/ kg) Fluid needs: 1 mL/kcal Nutrition Intervention Change Diet Order: Continue Current Diet Add Supplement/Snack (indicate name/kcal Ensure Enlive once daily /protein ) Provides kCal: 350 Provides Protein (gm) 20 Goal #1 Meet atleast 80% kcal/PRO needs via PO/ONS Goal #2 Wt maintenance/gain Anticipated Discharge Needs: Unable to determine at this time Follow-Up By: 07/31/19 Additional Comments FU PO/ONS intake
[2019-07-28] MEDS: SODIUM CHLORIDE 0.9% 1000 ML 1,000 ML IV SCH (18:14)
[2019-07-28] MEDS: NICOTINE 14 MG/24 HR PATCH TD SCH (21:25)
[2019-07-28] MEDS ORDERED: diphenhydrAMINE 50 MG/ML VIAL IV ONE (23:18)
[2019-07-29] MEDS: HYDROmorphone 1 MG/1 ML INJ IV PRN ×3 (00:59→08:09)
[2019-07-29] MEDS: PANTOPRAZOLE 80 MG in SODIUM CHLORIDE 0.9% 100 ML IV SCH (03:42)
[2019-07-29 06:39] LABS: Hematocrit 22.6 % (30.3-42.9); Hemoglobin 7.6 gm/dl (10.1-14.3)
--- NOTE | 2019-07-29 08:35 | Progress Note ---
Assessment and Plan Assessment and plan: Patient is a 48 yo woman with a history of tobacco dependency, prior alcohol abuse, substantial daily NSAID usage, [place] on Aspirin also who presented with melena * EGD yesterday (07/27/19) that showed: Significant edema and superficial ulceration of the first portion of the duodenum, without active bleeding. Very large (2-3cm) cratered ulcer in the pyloric channel, with active oozing of blood from the edges of the ulcer and blood clot with possible visible vessel in the right lateral side of the ulcer base. In order to attain hemostasis, the hemospray was utilized. Using multiple applications, the entire ulcer was coated. There was no bleeding at the end of the procedure. Significant gastritis of the antrum and body of the stomach, 4cm hiatal hernia, [place] grade B esophagitis of the distal 1cm of the esophagus, GE junction at 36cm from the incisors, Remainder of the exam was normal Acute blood loss anemia due to GI hemorrhage: treated with PPI IV drip, hemospray at above Gastric ulcer with visible vessel related to NSAIDs use: counseling and education done. avoid NSAIDs Tobacco dependency: senior counsel commercial on stopping H/o AMI: hold aspirin and plavix, continue to hold Plavix; if patient high risk to be off per cardiology, then okay to resume in 1 week but if she is low risk would recommend not resuming until after undergoing recommended repeat EGD as outpatient in ~6 weeks to ensure healing of ulcer h/o Alcohol abuse: treat with CIWA Drop in HCT: repeat around noon History Interval history: Patient was seen and examined. Follow-up on current diagnosis of PUD. No overnight events reported to me. Patient denies any chest pain, shortness breath, nausea/vomiting or severe headaches. Imaging, nursing note, chart, labs and old chart reviewed. Discussed with patient. Isabel at bedside. Hospitalist Physical - Physical exam Narrative exam: Gen: WDWN, NAD, Awake, Alert, Orientated HEENT: NCAT, EOMI, PERRL, OP Clear Neck: supple, no adenopathy, no thyromegaly, no JVD CVS/Heart: RRR, normal S1S2, pulses present bilaterally Chest/Lungs: CTA B, Symmetrical chest expansion, good air entry bilaterally GI/Abdomen: soft, NTND, good bowel sounds, no guarding or rebound /Bladder: no suprapubic tenderness, no CVA or paraspinal tenderness Extermity/Skin: no c/c/e, no obvious rash MSK: FROM x 4 Neuro: CN 2-12 grossly intact, no new focal deficits Psych: calm - Constitutional Vitals: Temp Pulse Resp BP Pulse Ox 98.5 F 93 H 20 122/75 100 07/29/19 07:35 07/29/19 07:35 07/29/19 07:35 07/29/19 07:35 07/29/19 07:35 Results - Labs CBC & Chem 7: 07/29/19 05:36 07/28/19 05:24 Labs: Laboratory Last Values WBC 17.6 K/mm3 (4.5-11.0) H 07/28/19 05:24 RBC 2.75 M/mm3 (3.65-5.03) L 07/28/19 05:24 Hgb 7.6 gm/dl (10.1-14.3) L 07/29/19 05:36 Hct 22.6 % (30.3-42.9) L 07/29/19 05:36 MCV 90 fl (79-97) 07/28/19 05:24 MCH 31 pg (28-32) 07/28/19 05:24 MCHC 34 % (30-34) 07/28/19 05:24 RDW 14.8 % (13.2-15.2) 07/28/19 05:24 Plt Count 175 K/mm3 (140-440) 07/28/19 05:24 Lymph % (Auto) 12.5 % (13.4-35.0) L 07/28/19 05:24 [place] % (Auto) 5.5 % (0.0-7.3) 07/28/19 05:24 Eos % (Auto) 0.6 % (0.0-4.3) 07/28/19 05:24 Baso % (Auto) 0.4 % (0.0-1.8) 07/28/19 05:24 Lymph # 2.2 K/mm3 (1.2-5.4) 07/28/19 05:24 [place] # 1.0 K/mm3 (0.0-0.8) H 07/28/19 05:24 Eos # 0.1 K/mm3 (0.0-0.4) 07/28/19 05:24 Baso # 0.1 K/mm3 (0.0-0.1) 07/28/19 05:24 Seg Neutrophils % 81.0 % (40.0-70.0) H 07/28/19 05:24 Seg Neutrophils # 14.2 K/mm3 (1.8-7.7) H 07/28/19 05:24 Sodium 140 mmol/L (137-145) 07/28/19 05:24 Potassium 3.4 mmol/L (3.6-5.0) L 07/28/19 05:24 Chloride 107.1 mmol/L (98-107) H 07/28/19 05:24 Carbon Dioxide 21 mmol/L (22-30) L 07/28/19 05:24 Anion Gap 15 mmol/L 07/28/19 05:24 BUN 7 mg/dL (7-17) 07/28/19 05:24 Creatinine 0.6 mg/dL (0.7-1.2) L 07/28/19 05:24 Estimated GFR > 60 ml/min 07/28/19 05:24 BUN/Creatinine Ratio 12 % 07/28/19 05:24 Glucose 82 mg/dL (65-100) 07/28/19 05:24 Lactic Acid 0.80 mmol/L (0.7-2.0) 07/27/19 13:59 Calcium 8.5 mg/dL (8.4-10.2) 07/28/19 05:24 Phosphorus 3.60 mg/dL (2.5-4.5) 07/27/19 10:07 Magnesium 1.80 mg/dL (1.7-2.3) 07/27/19 10:07 Total Bilirubin 0.20 mg/dL (0.1-1.2) 07/28/19 05:24 Direct Bilirubin < 0.2 mg/dL (0-0.2) 07/27/19 10:19 Indirect Bilirubin 0.0 mg/dL 07/27/19 10:19 AST 17 units/L (5-40) 07/28/19 05:24 ALT 19 units/L (7-56) 07/28/19 05:24 Alkaline Phosphatase 89 units/L (35-129) 07/28/19 05:24 Ammonia 25.0 umol/L (25-60) 07/27/19 10:07 Total Creatine Kinase 36 units/L (30-135) 07/27/19 10:19 CK-MB (CK-2) 1.3 ng/mL (0.0-4.0) 07/27/19 10:19 CK-MB (CK-2) Rel Index 3.6 (0-4) 07/27/19 10:19 Total Protein 5.8 g/dL (6.3-8.2) L 07/28/19 05:24 Albumin 2.9 g/dL (3.9-5) L 07/28/19 05:24 Albumin/Globulin Ratio 1.0 % 07/28/19 05:24 Lipase 33 units/L (13-60) 07/27/19 10:07 TSH 0.881 mlU/mL (0.270-4.200) 07/27/19 10:07 Thyroxine (T4) 4.7 ug/dL (4.0-12.0) 07/27/19 10:07 Urine Color Yellow (Yellow) 07/27/19 14:00 Urine Turbidity Clear (Clear) 07/27/19 14:00 Urine pH 5.0 (5.0-7.0) 07/27/19 14:00 Ur Specific [place] 1.012 (1.003-1.030) 07/27/19 14:00 Urine Protein <15 mg/dl mg/dL (Negative) 07/27/19 14:00 Urine Glucose (UA) Neg mg/dL (Negative) 07/27/19 14:00 Urine Ketones Neg mg/dL (Negative) 07/27/19 14:00 Urine Blood Neg (Negative) 07/27/19 14:00 Urine Nitrite Neg (Negative) 07/27/19 14:00 Ur Reducing Substances Not Reportable 07/27/19 14:00 Urine Bilirubin Neg (Negative) 07/27/19 14:00 Urine Ictotest Not Reportable 07/27/19 14:00 Urine Urobilinogen < 2.0 mg/dL (<2.0) 07/27/19 14:00 Ur Leukocyte Esterase Tr (Negative) 07/27/19 14:00 Urine WBC (Auto) 1.0 /HPF (0.0-6.0) 07/27/19 14:00 Urine RBC (Auto) < 1.0 /HPF (0.0-6.0) 07/27/19 14:00 U Epithel Cells (Auto) 1.0 /HPF (0-13.0) 07/27/19 14:00 Urine Mucus Few /HPF 07/27/19 14:00 Urine HCG, Qual Negative (Negative) 07/27/19 14:00 Salicylates 4.1 mg/dL (2.8-20.0) 07/27/19 10:07 Urine Opiates Screen Presumptive negative 07/27/19 14:00 Urine Methadone Screen Presumptive negative 07/27/19 14:00 Acetaminophen < 5.0 ug/mL (10.0-30.0) L 07/27/19 10:07 Ur Barbiturates Screen Presumptive negative 07/27/19 14:00 Ur Phencyclidine Scrn Presumptive negative 07/27/19 14:00 Ur Amphetamines Screen Presumptive negative 07/27/19 14:00 U Benzodiazepines Scrn Presumptive negative 07/27/19 14:00 Urine Cocaine Screen Presumptive negative 07/27/19 14:00 U Marijuana (THC) Screen Presumptive positive 07/27/19 14:00 Drugs of Abuse Note Disclamer 07/27/19 14:00 Plasma/Serum Alcohol < 0.01 % (0-0.07) 07/27/19 10:07 Blood Type O POSITIVE 07/27/19 14:00 Antibody Screen Negative 07/27/19 14:00 Crossmatch See Detail 07/27/19 14:00 Active Medications - Current Medications Current Medications: Generic Name Dose Route Start Last Admin Trade Name Freq PRN Reason Stop Dose Admin Acetaminophen 650 mg 07/27/19 20:30 Tylenol PO Q4H PRN Pain MILD(1-3)/Fever >100.5/FOX Amlodipine Besylate 5 mg 07/28/19 10:00 07/28/19 10:18 Amlodipine PO 5 mg DAILY ANA Administration Atorvastatin Calcium 40 mg 07/28/19 22:00 07/28/19 21:25 Lipitor PO 40 mg QHS ANA Administration Hydromorphone HCl 1 mg 07/27/19 20:30 07/29/19 08:09 Dilaudid IV 1 mg Q3H PRN Administration Pain , Severe (7-10) Sodium Chloride 1,000 mls @ 50 mls/hr 07/27/19 18:00 07/28/19 18:14 Nacl 0.9% 1000 Ml IV 50 mls/hr DIRECT ANA Administration Pantoprazole Sodium 80 mg/ 100 mls @ 10 mls/hr 07/27/19 20:00 07/29/19 03:42 Sodium Chloride IV 8 mg/hr DIRECT ANA 10 mls/hr Administration 8 MG/HR Isosorbide Mononitrate 30 mg 07/28/19 10:00 07/28/19 10:18 Imdur PO 30 mg DAILY ANA Administration Lorazepam 1 mg 07/27/19 20:33 Ativan IV Q4H PRN Anxiety Nicotine 14 mg 07/27/19 23:00 07/28/19 21:25 Habitrol TD 14 mg QDAY@2200 ANA Administration Ondansetron HCl 4 mg 07/27/19 20:30 Zofran IV Q3H PRN Nausea And Vomiting Propylthiouracil 50 mg 07/28/19 10:00 07/28/19 10:18 Propylthiouracil PO 50 mg DAILY ANA Administration Sodium Chloride 10 ml 07/27/19 22:00 07/28/19 21:36 Sodium Chloride Flush Syringe 10 Ml IV Not Given BID ANA Sodium Chloride 10 ml 07/27/19 20:30 Sodium Chloride Flush Syringe 10 Ml IV PRN PRN LINE FLUSH Tramadol HCl 50 mg 07/28/19 06:49 Ultram PO Q6HR PRN Pain, Moderate (4-6) Nutrition/Malnutrition Assess - Dietary Evaluation Nutrition/Malnutrition Findings: Nutrition Notes Start: 07/28/19 10:38 Freq: Status: Active Protocol: Document 07/28/19 10:38 DW (Rec: 07/28/19 11:37 DW [id number]) Co-Sign 07/28/19 10:38 LP Nutrition Notes Need for Assessment generated from: brimmer blocker,MST Initial or Follow up Assessment Current Diagnosis Coronary Artery Disease, Hypertension,Hyperlipidemia Other Pertinent Diagnosis Hypothyroidism, hx ETOH abuse Current Diet Mechanical Soft Labs/Tests K 3.4 Cr 0.6 Pertinent Medications Reviewed Height 5 ft 9 in Weight 57.9 kg [place] Body Weight (kg) 65.90 BMI 18.8 Weight change and time frame 3.7% wt loss in 3 weeks Subjective/Other Information RN screen for MST 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 Upon arrival pt was on liquid diet. Pt stated she consumed all her liquids for breakfast and was still hungry . Pt also stated MD would advance diet. Noted diet change to Mechanical Soft. Pt stated she lost 5 pounds in 3 weeks. Burn Absent Trauma Absent GI Symptoms None Minimum of two criteria Yes Energy Intake (severe) < or equal to 50% Estimated Energy Requirement > or equal to 5 days Interpretation of Weight Loss (non- 1-2% in 1 week severe) #1 Nutrition Diagnosis Malnutrition Etiology poor oral intake As Evidenced by Signs and Symptoms 3.7% wt loss in 3 weeks, <50% intake EER >5 days Is patient on ventilator? No Is Patient Ambulatory and/or Out of Bed Yes REE-([facility]-ambulatory/OOB) [ 1648.894 NUTR.MSJOOB] Kcal/Kg value to use for calculation 35 Approximate Energy Requirements Using 2026 kcal/Kg Calculation Used for Recommendations Kcal/kg Additional Notes PRO needs: 69-87g (1.2-1.5 g/ kg) Fluid needs: 1 mL/kcal Nutrition Intervention Change Diet Order: Continue Current Diet Add Supplement/Snack (indicate name/kcal Ensure Enlive once daily /protein ) Provides kCal: 350 Provides Protein (gm) 20 Goal #1 Meet atleast 80% kcal/PRO needs via PO/ONS Goal #2 Wt maintenance/gain Anticipated Discharge Needs: Unable to determine at this time Follow-Up By: 07/31/19 Additional Comments FU PO/ONS intake
[2019-07-29] MEDS: amLODIPine 5 MG TAB PO SCH (09:44)
[2019-07-29] MEDS: propylthiouraciL 50 MG TAB PO SCH (09:44)
[2019-07-29] MEDS ORDERED: HYDROmorphone 1 MG/1 ML INJ IV PRN (10:30)
[2019-07-29] MEDS ORDERED: oxyCODONE /ACETAMINOPHEN 5-325MG TAB PO PRN (10:30)
[2019-07-29 11:23] LABS: Hematocrit 24.4 % (30.3-42.9); Hemoglobin 8.4 gm/dl (10.1-14.3)
[2019-07-29 12:28] VITALS: BP 130/76
--- NOTE | 2019-07-29 12:54 | Gastroenterology Progress Note ---
Assessment and Plan 1.UGIB/melena 2.acute blood loss anemia 3.LUQ abdominal pain 4.ETOH abuse -H/H stable. -no active signs of bleeding overnight or this am -s/p EGD yesterday (07/27/19) that showed: * Significant edema and superficial ulceration of the first portion of the duodenum, without active bleeding * Very large (2-3cm) cratered ulcer in the pyloric channel, with active oozing of blood from the edges of the ulcer and blood clot with possible visible vessel in the right lateral side of the ulcer base. In order to attain hemostasis, the hemospray was utilized. Using multiple applications, the entire ulcer was coated. There was no bleeding at the end of the procedure * Significant gastritis of the antrum and body of the stomach * 4cm hiatal hernia * LA grade B esophagitis of the distal 1cm of the esophagus * GE junction at 36cm from the incisors * Remainder of the exam was normal -avoid NSAIDs -continue to hold Plavix; if patient high risk to be off per cardiology, then okay to resume in 1 week but if she is low risk would recommend not resuming until after undergoing recommended repeat EGD as outpatient in ~6 weeks to ensure healing of ulcer -ok for discharge per GI standpoint on protonix bid oral dosing. Close follow up in clinic in 2-3 weeks. -stay on soft diet x 5-7days. -continue supportive care -alcohol and tobacco cessation discussed/encouraged with patient -will sign off. Subjective Date of service: 07/29/19 Principal diagnosis: UGIB Interval history: No events o/n. Patient without any stool yesterday or today. Tolerating diet well. no abdominal pain. Objective - Constitutional Vitals: Temp Pulse Resp BP Pulse Ox 99.0 F 94 H 20 130/76 100 07/29/19 11:19 07/29/19 11:19 07/29/19 11:19 07/29/19 11:07/29/19 11:19 - EENT ENT: hearing intact, clear oral mucosa - Neck Neck: supple - Respiratory Respiratory effort: normal Respiratory: bilateral: CTA - Cardiovascular Rhythm: regular - Extremities Extremities: pulses intact, No edema, normal color, Full ROM - Gastrointestinal General gastrointestinal: Present: soft, non-tender, non-distended, normal bowel sounds - Integumentary Integumentary: Present: clear, warm, dry - Neurologic Neurological: alert and oriented x3 - Labs CBC & Chem 7: 07/29/19 11:03 07/28/19 05:24 Labs: Laboratory Results - last 24 hr 07/28/19 07/29/19 07/29/19 14:27 05:36 11:03 Hgb 8.4 L 7.6 L 8.4 L Hct 25.4 L 22.6 L 24.4 L
--- NOTE | 2019-07-29 13:23 | Discharge Summary ---
Providers - Providers Date of Admission: 07/27/19 15:13 Date of discharge: 07/29/19 Attending physician: CHADWICK CHRISTIAN 07/27/19 15:14 Consult to Physician [CONS] Urgent Comment: Consulting Provider: JUAN FAYE Physician Instructions: Reason For Exam: upper GI bleeding Primary care physician: GABBY MARTINEZ Hospitalization Condition: Stable Hospital course: Patient is a 48 yo woman with a history of tobacco dependency, prior alcohol abuse, substantial daily NSAID usage, AR on Aspirin also who presented with melena * EGD yesterday (07/27/19) that showed: Significant edema and superficial ulceration of the first portion of the duodenum, without active bleeding. Very large (2-3cm) cratered ulcer in the pyloric channel, with active oozing of blood from the edges of the ulcer and blood clot with possible visible vessel in the right lateral side of the ulcer base. In order to attain hemostasis, the hemospray was utilized. Using multiple applications, the entire ulcer was coated. There was no bleeding at the end of the procedure. Significant gastritis of the antrum and body of the stomach, 4cm hiatal hernia, LA grade B esophagitis of the distal 1cm of the esophagus, GE junction at 36cm from the incisors, Remainder of the exam was normal Acute blood loss anemia due to GI hemorrhage: treated with PPI IV drip, hemospray at above Gastric ulcer with visible vessel related to NSAIDs use: counseling and education done. avoid NSAIDs Tobacco dependency: personal counselor on stopping H/o AMI: hold aspirin and plavix, continue to hold Plavix; if patient high risk to be off per cardiology, then okay to resume in 1 week but if she is low risk would recommend not resuming until after undergoing recommended repeat EGD as outpatient in ~6 weeks to ensure healing of ulcer h/o Alcohol abuse: treat with CIWA Drop in HCT: repeat around noon, h/h stable Disposition: home as patient is not the nicest person in the world, she gets upset very easily and starts raising her voice especially when I told her that she may not be going home today because h/h drop and I would recheck. Disposition: TO HOME OR SELFCARE Time spent for discharge: 35 minutes Core Measure Documentation - Palliative Care Palliative Care/ Comfort Measures: Not Applicable - Core Measures Any of the following diagnoses?: none - VTE Discharge Requirements Deep Vein Thrombosis/Pulmonary Embolism Present on Admission: No Has pt received <5 days of overlap therapy or INR<2.0: No Anticoagulant overlap therapy prescribed at discharge: No Contraindication No Overlap Therapy order at DC: Not Indicated Exam - Physical Exam Narrative exam: Gen: thin frial, bmi 18.4, NAD, Awake, Alert, Orientated HEENT: NCAT, EOMI, PERRL, OP Clear Neck: supple, no adenopathy, no thyromegaly, no JVD CVS/Heart: RRR, normal S1S2, pulses present bilaterally Chest/Lungs: CTA B, Symmetrical chest expansion, good air entry bilaterally GI/Abdomen: soft, ntnd, stigimata of heating pads duffy without breakdown, good bowel sounds, no guarding or rebound /Bladder: no suprapubic tenderness, no CVA or paraspinal tenderness Extermity/Skin: no c/c/e, no obvious rash MSK: FROM x 4 Neuro: CN 2-12 grossly intact, no new focal deficits Psych: calm - Constitutional Vitals: Temp Pulse Resp BP Pulse Ox 99.0 F 94 H 20 130/76 100 07/29/19 11:19 07/29/19 11:19 07/29/19 11:19 07/29/19 11:19 07/29/19 11:19 Plan Activity: other (no strenous activity unless cleared by GI) Diet: other (soft diet for 7 days then advance slow to solids, no spicy foods, ) Special Instructions: smoking cessation Additional Instructions: No Ibuprofen, No Motrin, No Goody power, No Goody Pm power, no Aleve, No Naprosyn, No Naproxen. No ASA or plavix until cleared by GI doctor, make an appointment. Return if you notice any blood Follow up with: PRIMARY CARE, [Referring] - 3-5 Days JUAN FAYE MD [Staff Physician] - 7 Days Prescriptions: amLODIPine 5 mg PO DAILY #30 tab Nicotine [Habitrol] 14 mg TD QDAY@2200 #15 patch oxyCODONE /ACETAMINOPHEN [Percocet 5/325 mg] 1 tab PO Q4H PRN #26 tablet PRN Reason: Pain , Severe (7-10) Pantoprazole [Protonix] 40 mg PO BID #60 tablet traMADol [Ultram 50 MG tab] 50 mg PO Q6HR PRN #15 tab PRN Reason: Pain
== END 2019-07-29 14:45 | disposition home or self-care (01) | DRG 377 ==
LOC: ED 09:05 → 4A 15:13
PROVIDERS: ADMIT Internal Medicine; ATTEND Internal Medicine
PROC: 0W3P8ZZ Control Bleeding in Gastrointestinal Tract, Via Natural or Artificial Opening Endoscopic (ICD-10-PCS; principal; 2019-07-27)
PROC: 30233N1 Transfusion of Nonautologous Red Blood Cells into Peripheral Vein, Percutaneous Approach (ICD-10-PCS; 2019-07-27)
DX: K25.4 Chronic or unspecified gastric ulcer with hemorrhage (principal); E43 Unspecified severe protein-calorie malnutrition; D62 Acute posthemorrhagic anemia; Z68.1 Body mass index [BMI] 19.9 or less, adult; F10.20 Alcohol dependence, uncomplicated; I25.10 Atherosclerotic heart disease of native coronary artery without angina pectoris; I10 Essential (primary) hypertension; E03.9 Hypothyroidism, unspecified; F17.210 Nicotine dependence, cigarettes, uncomplicated; E78.5 Hyperlipidemia, unspecified; G89.29 Other chronic pain; K26.9 Duodenal ulcer, unspecified as acute or chronic, without hemorrhage or perforation; K20.9 Esophagitis, unspecified; Y90.9 Presence of alcohol in blood, level not specified; T39.395A Adverse effect of other nonsteroidal anti-inflammatory drugs [NSAID], initial encounter; E78.00 Pure hypercholesterolemia, unspecified; Z82.49 Family history of ischemic heart disease and other diseases of the circulatory system; I25.2 Old myocardial infarction; Z79.899 Other long term (current) drug therapy; Z88.6 Allergy status to analgesic agent; Y92.098 Other place in other non-institutional residence as the place of occurrence of the external cause; Z71.41 Alcohol abuse counseling and surveillance of alcoholic; Z71.6 Tobacco abuse counseling
CPT/HCPCS: 36415; 71045; 74177; 80048; 80053; 80076; 80307; 80320; 81001; 81025; 82140; 82271; 82550; 82553; 83690; 83735; 84100; 84436; 84443; 85014; 85018; 85025; 86850; 86900; 86901; 86920; 87040; 87086; 87116; 93005; 93010; 96365; 99406; G0378; A9270-GY; C9113; G0480; J0692; J1170; J1200; J2060; J2185; J2704; J3370; J7030; J7050; P9016; Q9967

== ENCOUNTER 2019-08-14 13:35 | Emergency (ER) | payer OTHER ==
--- NOTE | 2019-08-14 14:06 | Event Note ---
ED Screening Note ED Screening Note: states she has erosive PUD states she is having N/V/D states she is having upper abd pain she says that she has bright red blood per rectum was admitted recently +ETOH continued, drinks wine coolers approximately 3-4 a day went through menopause PMHx hyperthyroid, [place] allergy: lisinopril This initial assessment/diagnostic orders/clinical plan/treatment(s) is/are subject to change based on patients health status, clinical progression and re- assessment by fellow clinical providers in the ED. Further treatment and workup at subsequent clinical providers discretion. Patient/guardian urged not to elope from the ED as their condition may be serious if not clinically assessed and managed. Initial orders include: labs
[2019-08-14 14:58] LABS: Basophils # (Auto) 0.1 K/mm3 (0.0-0.1); Basophils % (Auto) 0.8 % (0.0-1.8); Eosinophils # (Auto) 0.1 K/mm3 (0.0-0.4); Eosinophils % (Auto) 0.8 % (0.0-4.3); Hematocrit 29.6 % (30.3-42.9); Hemoglobin 9.8 gm/dl (10.1-14.3); Lymphocytes # (Auto) 1.4 K/mm3 (1.2-5.4); Lymphocytes % (Auto) 17.1 % (13.4-35.0); Mean Corpuscular HGB Conc 33 % (30-34); Mean Corpuscular Volume 91 fl (79-97); Monocytes # (Auto) 0.6 K/mm3 (0.0-0.8); Monocytes % (Auto) 7.3 % (0.0-7.3); Platelet Count 307 K/mm3 (140-440); Red Blood Count 3.26 M/mm3 (3.65-5.03); Red Cell Distribution Width 17.3 % (13.2-15.2)
[2019-08-14 15:09] LABS: Mucus,Urine FEW /HPF; RBC,Urine < 1.0 /HPF (0.0-6.0); WBC,Urine < 1.0 /HPF (0.0-6.0)
[2019-08-14 15:13] LABS: Alanine Aminotransferase 26 units/L (7-56); Albumin 3.5 g/dL (3.9-5); BUN/Creatinine Ratio 12; Blood Urea Nitrogen 11 mg/dL (7-17); Calcium 8.9 mg/dL (8.4-10.2); Hemolysis Index 23
[2019-08-14 15:20] LABS: Bilirubin,Urine Negative (Negative); Color,Urine Yellow (Yellow); Protein,Urine <15 mg/dL mg/dL (Negative); Urobilinogen,Urine < 2.0 mg/dL (<2.0)
[2019-08-14] MEDS ORDERED: SODIUM CHLORIDE 0.9% 1000 ML 1,000 ML IV ONE (17:52)
[2019-08-14] MEDS ORDERED: ONDANSETRON 4 MG/2 ML INJ IV ONE (17:52)
[2019-08-14] MEDS ORDERED: PANTOPRAZOLE 40 MG INJ IV ONE (17:52)
[2019-08-14] MEDS ORDERED: HYDROmorphone 1 MG/1 ML INJ IV ONE (17:53)
--- NOTE | 2019-08-14 18:16 | Emergency Department Report ---
ED GI Bleed HPI - General Chief complaint: GI Bleed Stated complaint: ABD PAIN Time Seen by Provider: 08/14/19 14:03 Source: patient Mode of arrival: Ambulatory Limitations: No Limitations - History of Present Illness Initial comments: 48-year-old female with a past medical history CAD without stent, hypertension, elevated cholesterol, hyperthyroidism, alcohol abuse, tobacco dependency, and recent peptic ulcer diagnosis presents to the hospital complaining of bright red blood with bowel movements. Patient had endoscopy on July 27 that showed duo denal ulceration including a 2-3 cm ulcer at pyloric channel with some bleeding. Patient also had esophagitis, gastritis, and a hiatal hernia. She did require blood transfusion during admission. Hemostasis was obtained. Patient was discharged on July 29. She states she continued to have black stools for the first 3 days then became brown again. Then patient started to have brown stool with gross blood. Today she vomited several times and states it was clear and without gross blood or coffee grounds. Since discharge she stopped taking aspirin, and she is taking Protonix and still taking her Plavix. Pt does not have a cardiac stent. She is also still drinking alcohol days last drink was a few days ago. Patient states she is continuing to have intermittent moderate to severe left upper quadrant pain is intermittent and aching twisting in nature. Pain is worse to palpation. She has a scheduled follow-up visit with GI on August 24. Severity scale (0 -10): 5 - Related Data Home Medications Medication Instructions Recorded Confirmed Last Taken Propylthiouracil 50 mg PO DAILY 07/23/19 07/27/19 Unknown Previous Rx's Medication Instructions Recorded Last Taken Type Acetaminophen [Acetaminophen TAB] 1 tab PO Q4H PRN #16 tablet 07/29/19 Unknown Rx AtorvaSTATin [Lipitor] 40 mg PO QHS #30 07/29/19 Unknown Rx ISOSORBIDE MONOnitrate 30 mg PO DAILY #30 07/29/19 Unknown Rx Nicotine [Habitrol] 14 mg TD QDAY@2200 #15 patch 07/29/19 Unknown Rx Pantoprazole [Protonix] 40 mg PO BID #60 tablet 07/29/19 Unknown Rx amLODIPine 5 mg PO DAILY #30 tab 07/29/19 Unknown Rx oxyCODONE /ACETAMINOPHEN [Percocet 1 tab PO Q4H PRN #26 tablet 07/29/19 Unknown Rx 5/325 mg] traMADoL [Ultram 50 MG tab] 50 mg PO Q6HR PRN #15 tab 07/29/19 Unknown Rx HYDROcodone/APAP 5-325 [[place] 1 each PO Q6HR PRN #15 tablet 08/14/19 Unknown Rx 5/325] Ondansetron [Zofran Odt] 4 mg PO Q8HR PRN #20 tab.rapdis 08/14/19 Unknown Rx Sucralfate [Carafate] 1 gm PO Q6HR #20 tablet 08/14/19 Unknown Rx Allergies Allergy/AdvReac Type Severity Reaction Status Date / Time lisinopril Allergy Swelling Verified 08/14/19 14:05 ED Review of Systems ROS: Stated complaint: ABD PAIN Other details as noted in HPI Comment: All other systems reviewed and negative ED Past Medical Hx - Past Medical History Previous Medical History?: Yes Hx Hypertension: Yes Hx Heart Attack/AMI: Yes (X2) Hx Congestive Heart Failure: No Hx Diabetes: No Hx Deep Vein Thrombosis: No Hx Liver Disease: No Hx Asthma: No Hx COPD: No Additional medical history: HIGH CHOLESTROL/ CO X2. Hyperthyroidism - Surgical History Past Surgical History?: Yes Hx Coronary Stent: No Hx Pacemaker: No Hx Internal Defibrillator: No Additional Surgical History: - Social History Smoking Status: Current Every Day Smoker Substance Use Type: Alcohol - Medications Home Medications: Home Medications Medication Instructions Recorded Confirmed Last Taken Type Propylthiouracil 50 mg PO DAILY 07/23/19 07/27/19 Unknown History Acetaminophen [Acetaminophen TAB] 1 tab PO Q4H PRN #16 tablet 07/29/19 Unknown Rx AtorvaSTATin [Lipitor] 40 mg PO QHS #30 07/29/19 07/27/19 Unknown Rx ISOSORBIDE MONOnitrate 30 mg PO DAILY #30 07/29/19 07/27/19 Unknown Rx Nicotine [Habitrol] 14 mg TD QDAY@2200 #15 patch 07/29/19 Unknown Rx Pantoprazole [Protonix] 40 mg PO BID #60 tablet 07/29/19 Unknown Rx amLODIPine 5 mg PO DAILY #30 tab 07/29/19 Unknown Rx oxyCODONE /ACETAMINOPHEN [Percocet 1 tab PO Q4H PRN #26 tablet 07/29/19 Unknown Rx 5/325 mg] traMADoL [Ultram 50 MG tab] 50 mg PO Q6HR PRN #15 tab 07/29/19 Unknown Rx HYDROcodone/APAP 5-325 [[place] 1 each PO Q6HR PRN #15 tablet 08/14/19 Unknown Rx 5/325] Ondansetron [Zofran Odt] 4 mg PO Q8HR PRN #20 tab.rapdis 08/14/19 Unknown Rx Sucralfate [Carafate] 1 gm PO Q6HR #20 tablet 08/14/19 Unknown Rx ED Physical Exam - General Limitations: No Limitations - Other Other exam information: General: No acute distress Head: Atraumatic Eyes: normal appearance ENT: Moist mucous membranes Neck: Normal appearance, no midline tenderness Chest: Clear to auscultation bilaterally CV: Regular rate and rhythm Abdomen: Soft, normal bowel sounds, with upper quadrant tenderness, nondistended, no rebound or guarding Rectal: guaic positive, brown stool, no melena, no gross blood Back: Normal inspection Extremity: Normal inspection infection, full range of motion Neuro: Alert O x 3, no facial asymmetry, speech clear, no gross motor sensory deficit Psych: Appropriate behavior Skin: No rash ED Course Vital Signs 08/14/19 08/14/19 08/14/19 13:39 19:31 19:32 Temperature 98.2 F Pulse Rate 105 H 77 Respiratory 17 16 16 Rate Blood Pressure 147/80 Blood Pressure 130/67 [Left] O2 Sat by Pulse 100 99 Oximetry - Consultations Consultation #1: 08/14/19 18:11 case d/w Dr. Hogue, rec stop plavix (if no cardiac stents), may add carafate, f/u aug 24 as scheduled ED Medical Decision Making - Lab Data Result diagrams: 08/14/19 14:34 08/14/19 14:34 Lab Results 08/14/19 08/14/19 08/14/19 Range/Units 14:30 14:34 14:34 WBC 8.0 (4.5-11.0) K/mm3 RBC 3.26 L (3.65-5.03) M/mm3 Hgb 9.8 L (10.1-14.3) gm/dl Hct 29.6 L (30.3-42.9) % MCV 91 (79-97) fl MCH 30 (28-32) pg MCHC 33 (30-34) % RDW 17.3 H (13.2-15.2) % Plt Count 307 (140-440) K/mm3 Lymph % (Auto) 17.1 (13.4-35.0) % [place] % (Auto) 7.3 (0.0-7.3) % Eos % (Auto) 0.8 (0.0-4.3) % Baso % (Auto) 0.8 (0.0-1.8) % Lymph # 1.4 (1.2-5.4) K/mm3 [place] # 0.6 (0.0-0.8) K/mm3 Eos # 0.1 (0.0-0.4) K/mm3 Baso # 0.1 (0.0-0.1) K/mm3 Seg Neutrophils % 74.0 H (40.0-70.0) % Seg Neutrophils # 5.9 (1.8-7.7) K/mm3 Sodium 141 (137-145) mmol/L Potassium 4.6 (3.6-5.0) mmol/L Chloride 105.7 (98-107) mmol/L Carbon Dioxide 21 L (22-30) mmol/L Anion Gap 19 mmol/L BUN 11 (7-17) mg/dL Creatinine 0.9 (0.7-1.2) mg/dL Estimated GFR > 60 ml/min BUN/Creatinine Ratio 12 % Glucose 93 (65-100) mg/dL Lactic Acid (0.7-2.0) mmol/L Calcium 8.9 (8.4-10.2) mg/dL Total Bilirubin 0.20 (0.1-1.2) mg/dL AST 32 (5-40) units/L ALT 26 (7-56) units/L Alkaline Phosphatase 160 H (35-129) units/L Total Creatine Kinase 55 (30-135) units/L Total Protein 7.0 (6.3-8.2) g/dL Albumin 3.5 L (3.9-5) g/dL Albumin/Globulin Ratio 1.0 % Lipase 28 (13-60) units/L Urine Color Yellow (Yellow) Urine Turbidity Clear (Clear) Urine pH 6.0 (5.0-7.0) Urine Protein <15 mg/dl (Negative) mg/dL Urine Glucose (UA) Negative (Negative) mg/dL Urine Ketones Negative (Negative) mg/dL Urine Nitrite Negative (Negative) Ur Reducing Substances Not Reportable Urine Bilirubin Negative (Negative) Urine Ictotest Not Reportable Urine Urobilinogen < 2.0 (<2.0) mg/dL Ur Leukocyte Esterase Negative (Negative) Urine WBC (Auto) < 1.0 (0.0-6.0) /HPF Urine RBC (Auto) < 1.0 (0.0-6.0) /HPF U Epithel Cells (Auto) 1.0 (0-13.0) /HPF Urine Mucus Few /HPF 08/14/19 Range/Units 14:34 WBC (4.5-11.0) K/mm3 RBC (3.65-5.03) M/mm3 Hgb (10.1-14.3) gm/dl Hct (30.3-42.9) % MCV (79-97) fl MCH (28-32) pg MCHC (30-34) % RDW (13.2-15.2) % Plt Count (140-440) K/mm3 Lymph % (Auto) (13.4-35.0) % [place] % (Auto) (0.0-7.3) % Eos % (Auto) (0.0-4.3) % Baso % (Auto) (0.0-1.8) % Lymph # (1.2-5.4) K/mm3 [place] # (0.0-0.8) K/mm3 Eos # (0.0-0.4) K/mm3 Baso # (0.0-0.1) K/mm3 Seg Neutrophils % (40.0-70.0) % Seg Neutrophils # (1.8-7.7) K/mm3 Sodium (137-145) mmol/L Potassium (3.6-5.0) mmol/L Chloride (98-107) mmol/L Carbon Dioxide (22-30) mmol/L Anion Gap mmol/L BUN (7-17) mg/dL Creatinine (0.7-1.2) mg/dL Estimated GFR ml/min BUN/Creatinine Ratio % Glucose (65-100) mg/dL Lactic Acid 1.10 (0.7-2.0) mmol/L Calcium (8.4-10.2) mg/dL Total Bilirubin (0.1-1.2) mg/dL AST (5-40) units/L ALT (7-56) units/L Alkaline Phosphatase (35-129) units/L Total Creatine Kinase (30-135) units/L Total Protein (6.3-8.2) g/dL Albumin (3.9-5) g/dL Albumin/Globulin Ratio % Lipase (13-60) units/L Urine Color (Yellow) Urine Turbidity (Clear) Urine pH (5.0-7.0) Urine Protein (Negative) mg/dL Urine Glucose (UA) (Negative) mg/dL Urine Ketones (Negative) mg/dL Urine Nitrite (Negative) Ur Reducing Substances Urine Bilirubin (Negative) Urine Ictotest Urine Urobilinogen (<2.0) mg/dL Ur Leukocyte Esterase (Negative) Urine WBC (Auto) (0.0-6.0) /HPF Urine RBC (Auto) (0.0-6.0) /HPF U Epithel Cells (Auto) (0-13.0) /HPF Urine Mucus /HPF - Medical Decision Making sx improved with ED tx. patient she will be hepatitis, normal saline, 0.5 mg Dilaudid, and Zofran. Case discussed with GI. H&H improved compared to recent discharge value. Brown stool without melena. No signs of active bleeding (no gross blood on exam). Patient will be discharged with meds and follow-up. - Differential Diagnosis pud, diverticulosis, AVM, cancer Critical Care Time: No Critical care attestation.: If time is entered above; I have spent that time in minutes in the direct care of this critically ill patient, excluding procedure time. ED Disposition Clinical Impression: LUQ abdominal pain, PUD (peptic ulcer disease), Alcohol abuse, Smoker, Anemia Disposition: DC-01 TO HOME OR SELFCARE Is pt being admited?: No Does the pt Need Aspirin: No Condition: Stable Instructions: Peptic Ulcer (ED), Gastrointestinal Bleeding (ED), Abuse of Alcohol (ED), How to Stop Smoking (ED) Additional Instructions: Stop Plavix/clopidogrel and do not take Aspirin or ibuprofen. Take the medication as prescribed. Follow-up with the Gi doctor as scheduled on Aug 24. Return if symptoms worsen as indicated by your discharge instructions. Prescriptions: Sucralfate [Carafate] 1 gm PO Q6HR #20 tablet HYDROcodone/APAP 5-325 [[place] 5/325] 1 each PO Q6HR PRN #15 tablet PRN Reason: Pain Ondansetron [Zofran Odt] 4 mg PO Q8HR PRN #20 tab.rapdis PRN Reason: Nausea And Vomiting Referrals: CORY BENÍTEZ MD [Primary Care Provider] - 3-5 Days giMD [Other] - 08/24/19 Forms: Accompanied Note Time of Disposition: 20:07
[2019-08-14 19:32] VITALS: BP 130/67
== END 2019-08-14 20:18 | disposition home or self-care (01) ==
LOC: ED 13:35
DX: K27.9 Peptic ulcer, site unspecified, unspecified as acute or chronic, without hemorrhage or perforation (principal); F10.10 Alcohol abuse, uncomplicated; F17.200 Nicotine dependence, unspecified, uncomplicated; I10 Essential (primary) hypertension; I25.2 Old myocardial infarction; E05.90 Thyrotoxicosis, unspecified without thyrotoxic crisis or storm; Z79.899 Other long term (current) drug therapy; Z88.8 Allergy status to other drugs, medicaments and biological substances
CPT/HCPCS: 36415; 80053; 81001; 82140; 82271; 82550; 83690; 85025; 96361; 96374; 96375; 99283; C9113; J1170; J2405; J7030

== ENCOUNTER 2019-08-16 20:47 | Emergency (ER) | payer OTHER ==
--- NOTE | 2019-08-16 21:41 | Event Note ---
ED Screening Note Date of service: 08/16/19 Time: 21:40 ED Screening Note: This is a 48 y.o. F. that presents to the ER with abdominal pain and chest pain for a few days. PMH of HTN, CAD without stent, elevated cholesterol, hyperthyroidism, alcohol abuse, tobacco dependency, and peptic ulcers. This initial assessment/diagnostic orders/clinical plan/treatment(s) is/are subject to change based on patients health status, clinical progression and re- assessment by fellow clinical providers in the ED. Further treatment and workup at subsequent clinical providers discretion. Patient/guardian urged not to elope from the ED as their condition may be serious if not clinically assessed and managed. Initial orders include: Labs
[2019-08-16 22:24] LABS: Basophils # (Auto) 0.1 K/mm3 (0.0-0.1); Basophils % (Auto) 1.3 % (0.0-1.8); Eosinophils % (Auto) 0.8 % (0.0-4.3); Hematocrit 29.7 % (30.3-42.9); Hemoglobin 9.9 gm/dl (10.1-14.3); Lymphocytes # (Auto) 1.6 K/mm3 (1.2-5.4); Lymphocytes % (Auto) 26.3 % (13.4-35.0); Mean Corpuscular HGB Conc 33 % (30-34); Mean Corpuscular Volume 90 fl (79-97); Monocytes # (Auto) 0.7 K/mm3 (0.0-0.8); Monocytes % (Auto) 12.2 % (0.0-7.3); Platelet Count 316 K/mm3 (140-440); Red Blood Count 3.29 M/mm3 (3.65-5.03); Red Cell Distribution Width 16.6 % (13.2-15.2)
[2019-08-16 22:50] LABS: Alanine Aminotransferase 17 units/L (7-56); Albumin 3.3 g/dL (3.9-5); BUN/Creatinine Ratio 11; Blood Urea Nitrogen 8 mg/dL (7-17); Calcium 9.2 mg/dL (8.4-10.2); Hemolysis Index 2
[2019-08-16] MEDS ORDERED: ACETAMINOPHEN 500 MG TAB PO ONE (22:52)
[2019-08-16] MEDS ORDERED: MORPHINE 4 MG/1 ML INJ IV ONE (23:31)
[2019-08-16 23:48] LABS: INR 0.86 (0.87-1.13)
[2019-08-16 23:49] LABS: Partial Thromboplastin Time 28.3 Sec. (24.2-36.6)
[2019-08-16 23:52] LABS: Bilirubin,Urine NEG (Negative); Blood,Urine NEG (Negative); Color,Urine Yellow (Yellow); Mucus,Urine FEW /HPF; Protein,Urine <15 mg/dL mg/dL (Negative); Urobilinogen,Urine < 2.0 mg/dL (<2.0)
--- NOTE | 2019-08-16 23:53 | Emergency Department Report ---
ED Abdominal Pain HPI - General Chief Complaint: Chest Pain Stated Complaint: CHEST AND ABDOMINAL PAIN Time Seen by Provider: 08/16/19 21:40 Source: patient Mode of arrival: Ambulatory Limitations: No Limitations - History of Present Illness Initial Comments: This is a 48-year-old female nontoxic, well nourished in appearance, no acute signs of distress presents to the ED with c/o of acute on chronic left sided abdominal pain with radiation to left sided chest and flank area. Patient denies any nausea or vomiting. Patient describes abdominal pain as cramping and aching with level of 8/10. Patient does have a history of alcohol intoxication and last alcoholic drink was yesterday. Patient does have a GI follow-up August 24. Patient denies short of breath, fever, chills, headache, stiff neck, numbness or tingling. Patient denies any diarrhea or constipation. Patient denies any recent travels. Patient stated allergies to lisinopril with past medical history of hypertension, [place], hyperthyroidism and stomach ulcer. MD Complaint: abdominal pain -: days(s) Location: LUQ Radiation: none Migration to: no migration Severity: mild Severity scale (0 -10): 8 Quality: cramping, aching Consistency: constant Improves With: nothing Associated Symptoms: denies other symptoms. denies: nausea, vomiting, diarrhea, fever, chills, constipation, dysuria, hematemesis, hematochezia, melena, hematuria, anorexia, syncope - Related Data Home Medications Medication Instructions Recorded Confirmed Last Taken Propylthiouracil 50 mg PO DAILY 07/23/19 07/27/19 Unknown Previous Rx's Medication Instructions Recorded Last Taken Type Acetaminophen [Acetaminophen TAB] 1 tab PO Q4H PRN #16 tablet 07/29/19 Unknown Rx AtorvaSTATin [Lipitor] 40 mg PO QHS #30 07/29/19 Unknown Rx ISOSORBIDE MONOnitrate 30 mg PO DAILY #30 07/29/19 Unknown Rx Nicotine [Habitrol] 14 mg TD QDAY@2200 #15 patch 07/29/19 Unknown Rx Pantoprazole [Protonix] 40 mg PO BID #60 tablet 07/29/19 Unknown Rx amLODIPine 5 mg PO DAILY #30 tab 07/29/19 Unknown Rx oxyCODONE /ACETAMINOPHEN [Percocet 1 tab PO Q4H PRN #26 tablet 07/29/19 Unknown Rx 5/325 mg] traMADoL [Ultram 50 MG tab] 50 mg PO Q6HR PRN #15 tab 07/29/19 Unknown Rx HYDROcodone/APAP 5-325 [[place] 1 each PO Q6HR PRN #15 tablet 08/14/19 Unknown Rx 5/325] Ondansetron [Zofran Odt] 4 mg PO Q8HR PRN #20 tab.rapdis 08/14/19 Unknown Rx Sucralfate [Carafate] 1 gm PO Q6HR #20 tablet 08/14/19 Unknown Rx Allergies Allergy/AdvReac Type Severity Reaction Status Date / Time lisinopril Allergy Swelling Verified 08/14/19 14:05 ED Review of Systems ROS: Stated complaint: CHEST AND ABDOMINAL PAIN Other details as noted in HPI Constitutional: denies: chills, fever Eyes: denies: eye pain, eye discharge, vision change ENT: denies: ear pain, throat pain Respiratory: denies: cough, shortness of breath, wheezing Cardiovascular: chest pain. denies: palpitations Endocrine: no symptoms reported Gastrointestinal: abdominal pain. denies: nausea, vomiting, diarrhea, constipation Genitourinary: denies: urgency, dysuria, discharge Musculoskeletal: denies: back pain, joint swelling, arthralgia Skin: denies: rash, lesions Neurological: denies: headache, weakness, paresthesias Psychiatric: denies: anxiety, depression Hematological/Lymphatic: denies: easy bleeding, easy bruising ED Past Medical Hx - Past Medical History Previous Medical History?: Yes Hx Hypertension: Yes Hx Heart Attack/AMI: Yes (X2) Hx Congestive Heart Failure: No Hx Diabetes: No Hx Deep Vein Thrombosis: No Hx Liver Disease: No Hx Asthma: No Hx COPD: No Additional medical history: HIGH CHOLESTROL/ [place] X2. Hyperthyroidism, Peptic Ulcers/Gasric ulcers - Surgical History Past Surgical History?: Yes Hx Coronary Stent: No Hx Pacemaker: No Hx Internal Defibrillator: No Additional Surgical History: - Social History Smoking Status: Current Every Day Smoker Substance Use Type: Alcohol, Marijuana - Medications Home Medications: Home Medications Medication Instructions Recorded Confirmed Last Taken Type Propylthiouracil 50 mg PO DAILY 07/23/19 07/27/19 Unknown History Acetaminophen [Acetaminophen TAB] 1 tab PO Q4H PRN #16 tablet 07/29/19 Unknown Rx AtorvaSTATin [Lipitor] 40 mg PO QHS #30 07/29/19 07/27/19 Unknown Rx ISOSORBIDE MONOnitrate 30 mg PO DAILY #30 07/29/19 07/27/19 Unknown Rx Nicotine [Habitrol] 14 mg TD QDAY@2200 #15 patch 07/29/19 Unknown Rx Pantoprazole [Protonix] 40 mg PO BID #60 tablet 07/29/19 Unknown Rx amLODIPine 5 mg PO DAILY #30 tab 07/29/19 Unknown Rx oxyCODONE /ACETAMINOPHEN [Percocet 1 tab PO Q4H PRN #26 tablet 07/29/19 Unknown Rx 5/325 mg] traMADoL [Ultram 50 MG tab] 50 mg PO Q6HR PRN #15 tab 07/29/19 Unknown Rx HYDROcodone/APAP 5-325 [[place] 1 each PO Q6HR PRN #15 tablet 08/14/19 Unknown Rx 5/325] Ondansetron [Zofran Odt] 4 mg PO Q8HR PRN #20 tab.rapdis 08/14/19 Unknown Rx Sucralfate [Carafate] 1 gm PO Q6HR #20 tablet 08/14/19 Unknown Rx ED Physical Exam - General Limitations: No Limitations General appearance: alert, in no apparent distress - Head Head exam: Present: atraumatic, normocephalic - Eye Eye exam: Present: normal appearance - Neck Neck exam: Present: normal inspection, full ROM. Absent: tenderness, meningismus, lymphadenopathy - Respiratory Respiratory exam: Present: normal lung sounds bilaterally, chest wall tenderness (left sided chest). Absent: respiratory distress, wheezes, rales, rhonchi, stridor, accessory muscle use, decreased breath sounds, prolonged expiratory - Cardiovascular Cardiovascular Exam: Present: regular rate, normal rhythm, normal heart sounds. Absent: irregular rhythm - GI/Abdominal GI/Abdominal exam: Present: soft, tenderness (LUQ), normal bowel sounds. Absent: distended, guarding, rebound, rigid, diminished bowel sounds - Extremities Exam Extremities exam: Present: normal inspection, full ROM, normal capillary refill. Absent: tenderness - Back Exam Back exam: Present: normal inspection, full ROM. Absent: tenderness, CVA tenderness (R), CVA tenderness (L), muscle spasm, paraspinal tenderness, vertebral tenderness, rash noted - Neurological Exam Neurological exam: Present: alert, oriented X3, normal gait - Psychiatric Psychiatric exam: Present: normal affect, normal mood - Skin Skin exam: Present: warm, dry, intact, normal color. Absent: rash ED Course Vital Signs 08/16/19 20:51 Temperature 97.3 F L Pulse Rate 93 H Respiratory 18 Rate Blood Pressure 147/89 O2 Sat by Pulse 100 Oximetry - Reevaluation(s) Reevaluation #1: 08/17/19 00:15 Patient is speaking in full sentences with no signs of distress noted. - Consultations Consultation #1: 08/17/19 00:15 Patient has been consulted with Prema Douglass about patient history, physical exam, and labs agrees to ED plan of care. ED Medical Decision Making - Lab Data Result diagrams: 08/16/19 21:53 08/16/19 21:53 - EKG Data Interpretation: normal EKG, other (sinus rhythm with no ST abnormalities. No STEMI.) 08/17/19 02:[address] Martinez - Radiology Data Radiology results: report reviewed EXAMINATION: Abdominal radiograph series, 2 views with PA chest radiograph, 08/16/2019 CLINICAL INFORMATION: Generalized abdominal pain COMPARISON: CT of the abdomen and pelvis, 07/27/2019 FINDINGS: The bowel gas pattern is nonobstructive. No abnormal radiodensities overlie the abdomen. Evaluation of bony structures demonstrates no evidence of acute bony abnormality. The accompanying PA chest radiograph demonstrates no evidence of acute cardiopulmonary process. IMPRESSION: No radiographic evidence of acute intra- abdominal process. Signer Name: Makeda Pratt MD Signed: 08/17/2019 1:00 AM Workstation Name: [email or web address] - Medical Decision Making This is a 48-year-old female that presents with abdominal pain. Patient is stable and was examined by me. There is no abdominal tenderness. Patient stated has some chest pain but pain radiates from her abdominal to her chest. Other esbastian, patient deneis any chest pain. Due to patients history, a cardaic work-up has been done. Wells criteria for DVT/SVT/PE 0 points. EKG normal sinus rhythm with no significant changes in ST. Chest/Abdominal xray dictated by the radiologist within normal limits. PAtient is notified of the Xray report with no questions noted. Labs are within normal limits. Patient's hemoglobin and hematocrit is actually improving since last visit. Negative troponin x2. Negative signs of appendicitis, cholecystitis or pancreatitis. Vital signs are stable prior to discharge. Patient received medical treatment in the ED which patient stated symptoms has resovled and subsided. Was instructed note to operate any machinery due to possible drowsiness and stated someone will drive the patient home. A by mouth challenge has been obtained and patient tolerated well with no nausea vomiting. Patient was also instructed to Follow-up with a primary care and fruit dryer doctor in 3-5 days or if symptoms worsen and continue return to emergency room as soon as possible. At time of discharge, the patient does not seem toxic or ill in appearance. No acute signs of distress noted. Patient agrees to discharge treatment plan of care. No further questions noted by the patient. - Differential Diagnosis STEMI, GI bleed, bowel obstruction, ETOH intox, enteritis, pancreatitis Critical care attestation.: If time is entered above; I have spent that time in minutes in the direct care of this critically ill patient, excluding procedure time. ED Disposition Clinical Impression: Abdominal pain Qualifiers: Abdominal location: left upper quadrant Qualified Code(s): R10.12 - Left upper quadrant pain Disposition: DC-01 TO HOME OR SELFCARE Is pt being admited?: No Does the pt Need Aspirin: No Condition: Stable Instructions: Acute Abdominal Pain (ED) Additional Instructions: Follow-up with a primary care and fruit dryer doctor in 3-5 days or if symptoms worsen and continue return to emergency room as soon as possible. Referrals: WILL LUJAN III [Primary Care Provider] - 3-5 Days ASHA HE MD [Referring] - 3-5 Days NIECY ESCOBAR MD [Staff Physician] - 3-5 Days [facility] [Provider Group] - 3-5 Days
[2019-08-17] MEDS ORDERED: MORPHINE 4 MG/1 ML INJ IV ONE (01:29)
[2019-08-17] MEDS ORDERED: MORPHINE 4 MG/1 ML INJ ONE (01:32)
[2019-08-17 02:35] VITALS: BP 130/64
--- NOTE | 2019-09-08 13:22 | XRay Report ---
EXAMINATION: Abdominal radiograph series, 2 views with PA chest radiograph, 08/16/2019 CLINICAL INFORMATION: Generalized abdominal pain COMPARISON: CT of the abdomen and pelvis, 07/27/2019 FINDINGS: The bowel gas pattern is nonobstructive. No abnormal radiodensities overlie the abdomen. Evaluation of bony structures demonstrates no evidence of acute bony abnormality. The accompanying PA chest radiograph demonstrates no evidence of acute cardiopulmonary process. IMPRESSION: No radiographic evidence of acute intra-abdominal process. Signer Name: Makeda Pratt MD Signed: 08/17/2019 2:00 AM Workstation Name: [email or web address]
== END 2019-08-17 03:11 | disposition home or self-care (01) ==
LOC: ED 20:47
DX: R10.12 Left upper quadrant pain (principal); I10 Essential (primary) hypertension; I25.2 Old myocardial infarction; F17.200 Nicotine dependence, unspecified, uncomplicated; F12.10 Cannabis abuse, uncomplicated
CPT/HCPCS: 36415; 74022; 80053; 81001; 83690; 84484; 85025; 85610; 85730; 93005; 93010; 96374; 96376; 99284; J2270; 80320; G0480

== ENCOUNTER 2019-08-30 08:56 | Emergency (ER) | payer OTHER ==
[2019-08-30 09:28] LABS: Basophils # (Auto) 0.2 K/mm3 (0.0-0.1); Eosinophils # (Auto) 0.2 K/mm3 (0.0-0.4); Eosinophils % (Auto) 2.1 % (0.0-4.3); Hematocrit 28.4 % (30.3-42.9); Hemoglobin 9.6 gm/dl (10.1-14.3); Lymphocytes # (Auto) 1.9 K/mm3 (1.2-5.4); Lymphocytes % (Auto) 22.2 % (13.4-35.0); Mean Corpuscular HGB Conc 34 % (30-34); Mean Corpuscular Volume 87 fl (79-97); Monocytes # (Auto) 0.9 K/mm3 (0.0-0.8); Monocytes % (Auto) 10.1 % (0.0-7.3); Platelet Count 310 K/mm3 (140-440); Red Blood Count 3.27 M/mm3 (3.65-5.03); Red Cell Distribution Width 18.2 % (13.2-15.2)
[2019-08-30 09:48] LABS: BUN/Creatinine Ratio 10; Blood Urea Nitrogen 10 mg/dL (7-17); Calcium 9.1 mg/dL (8.4-10.2); Hemolysis Index 31
[2019-08-30] MEDS ORDERED: SODIUM CHLORIDE 0.9% 1000 ML 1,000 ML IV ONE (09:58)
[2019-08-30] MEDS ORDERED: FAMOTIDINE 20 MG/2 ML INJ IV ONE (09:58)
[2019-08-30] MEDS ORDERED: SUCRALFATE 1 GM/10 ML ORAL LIQD PO ONE (09:59)
[2019-08-30 10:39] LABS: Alanine Aminotransferase 7 units/L (7-56); Albumin 3.5 g/dL (3.9-5); Bilirubin,Direct < 0.2 mg/dL (0-0.2)
[2019-08-30 10:43] LABS: INR 0.91 (0.87-1.13); Partial Thromboplastin Time 27.4 Sec. (24.2-36.6)
--- NOTE | 2019-08-30 10:46 | Emergency Department Report ---
ED General Adult HPI - General Chief complaint: Abdominal Pain Stated complaint: BLOOD IN STOOL Time Seen by Provider: 08/30/19 09:46 Source: patient, RN notes reviewed, old records reviewed Mode of arrival: Ambulatory Limitations: No Limitations - History of Present Illness Initial comments: The patient is a 48-year-old female. The patient was seen by gastroenterology last month for presumed upper GI bleed. She had EGD performed which showed edema and ulceration of the first portion of the [place], without active bleeding, a large cratered ulcer in the pyloric channel, with active oozing of blood from edges of the ulcer, requiring hemospay spray application. The patient was also found to have gastritis of the antrum and body of the stomach, esophagitis, hiatal hernia, and was instructed to avoid NSAIDs and hold Plavix. Additional past history includes alcohol abuse, tobacco use. The patient presents to the ER after her steel roller recommended she present to the ER for evaluation. She's been having intermittent rectal bleeding since early July. Sometimes she has bright red blood per rectum, and sometimes she has brown stool with red blood. She has mild diffuse abdominal cramping. She is taking her medications, including Carafate and Protonix. She endorses that she is not smoking or consuming tobacco or alcohol this time. She is not currently taking Plavix. Symptoms intermittent, did not radiate anywhere, as per the patient, do not have exacerbating or relieving factors. She endorses smoldering symptoms for over a month. -: Gradual, week(s) Location: abdomen Quality: aching Consistency: intermittent Improves with: none Worsens with: none - Related Data Home Medications Medication Instructions Recorded Confirmed Last Taken Propylthiouracil 50 mg PO DAILY 07/23/19 08/30/19 08/30/19 AtorvaSTATin [Lipitor] 40 mg PO DAILY 08/30/19 08/30/19 08/30/19 Losartan [Cozaar] 25 mg PO QDAY 08/30/19 08/30/19 08/30/19 Melatonin [Melatonin 5MG RAPDIS] 5 mg PO QHS PRN 08/30/19 08/30/19 08/29/19 Mirtazapine [Remeron 15mg TAB] 1 tab PO QHS 08/30/19 08/30/19 08/29/19 Previous Rx's Medication Instructions Recorded Last Taken Type Acetaminophen [Acetaminophen TAB] 1 tab PO Q4H PRN #16 tablet 07/29/19 08/29/19 Rx Nicotine [Habitrol] 14 mg TD QDAY@2200 #15 patch 07/29/19 08/28/19 Rx Pantoprazole [Protonix] 40 mg PO BID #60 tablet 07/29/19 08/30/19 Rx Ondansetron [Zofran Odt] 4 mg PO Q8HR PRN #20 tab.rapdis 08/14/19 Unknown Rx Sucralfate [Carafate] 1 gm PO Q6HR #20 tablet 08/14/19 08/30/19 Rx Allergies Allergy/AdvReac Type Severity Reaction Status Date / Time lisinopril Allergy Swelling Verified 08/14/19 14:05 ED Review of Systems ROS: Stated complaint: BLOOD IN STOOL Other details as noted in HPI Constitutional: denies: fever Eyes: denies: eye discharge ENT: denies: congestion Respiratory: denies: wheezing Cardiovascular: denies: syncope Gastrointestinal: diarrhea, hematochezia. denies: vomiting, hematemesis, melena Genitourinary: denies: dysuria Musculoskeletal: denies: myalgia Skin: denies: lesions Neurological: denies: weakness Hematological/Lymphatic: denies: easy bleeding ED Past Medical Hx - Past Medical History Previous Medical History?: Yes Hx Hypertension: Yes Hx Heart Attack/AMI: Yes (X2) Hx Congestive Heart Failure: No Hx Diabetes: No Hx Deep Vein Thrombosis: No Hx Liver Disease: No Hx Asthma: No Hx COPD: No Additional medical history: HIGH CHOLESTROL/ [place] X2. Hyperthyroidism, Peptic Ulcers/Gasric ulcers - Surgical History Past Surgical History?: Yes Hx Coronary Stent: No Hx Pacemaker: No Hx Internal Defibrillator: No Additional Surgical History: - Social History Smoking Status: Former Smoker Substance Use Type: Alcohol, Marijuana - Medications Home Medications: Home Medications Medication Instructions Recorded Confirmed Last Taken Type Propylthiouracil 50 mg PO DAILY 07/23/19 08/30/19 08/30/19 History Acetaminophen [Acetaminophen TAB] 1 tab PO Q4H PRN #16 tablet 07/29/19 08/30/19 08/29/19 Rx Nicotine [Habitrol] 14 mg TD QDAY@2200 #15 patch 07/29/19 08/30/19 08/28/19 Rx Pantoprazole [Protonix] 40 mg PO BID #60 tablet 07/29/19 08/30/19 08/30/19 Rx Ondansetron [Zofran Odt] 4 mg PO Q8HR PRN #20 tab.rapdis 08/14/19 08/30/19 Unknown Rx Sucralfate [Carafate] 1 gm PO Q6HR #20 tablet 08/14/19 08/30/19 08/30/19 Rx AtorvaSTATin [Lipitor] 40 mg PO DAILY 08/30/19 08/30/19 08/30/19 History Losartan [Cozaar] 25 mg PO QDAY 08/30/19 08/30/19 08/30/19 History Melatonin [Melatonin 5MG RAPDIS] 5 mg PO QHS PRN 08/30/19 08/30/19 08/29/19 History Mirtazapine [Remeron 15mg TAB] 1 tab PO QHS 08/30/19 08/30/19 08/29/19 History ED Physical Exam - General Limitations: No Limitations General appearance: alert, in no apparent distress - Head Head exam: Present: atraumatic, normocephalic - Eye Eye exam: Present: normal appearance, EOMI, other (proptotic eyes noted, consistent with history of hyperthyroidism. Appears to be chronic.). Absent: nystagmus - ENT ENT exam: Present: normal exam, normal orophraynx, mucous membranes moist, normal external ear exam - Neck Neck exam: Present: normal inspection, full ROM. Absent: tenderness, meningismus - Respiratory Respiratory exam: Present: normal lung sounds bilaterally. Absent: respiratory distress - Cardiovascular Cardiovascular Exam: Present: regular rate, normal rhythm, normal heart sounds. Absent: bradycardia, tachycardia, irregular rhythm, systolic murmur, diastolic murmur, rubs, gallop - GI/Abdominal GI/Abdominal exam: Present: soft. Absent: distended, tenderness, guarding, rebound, rigid, pulsatile mass - Rectal Rectal exam: Present: normal inspection, normal rectal tone, heme (+) stool, other (there is trace red blood on rectal examination. There is no gross blood on rectal examination. Chaperoned by clothing sorter Vincenzo Navarro). Absent: heme (-) stool, black stool, fecal impaction, hemorrhoids, mass, tenderness - Extremities Exam Extremities exam: Present: normal inspection, full ROM, other (2+ pulses noted in the bilateral upper and lower extremities. There is no palpable cord. negative Homans sign. Muscular compartments are soft. The pelvis is stable.). Absent: pedal edema, calf tenderness - Back Exam Back exam: Present: normal inspection. Absent: tenderness, CVA tenderness (R), CVA tenderness (L), paraspinal tenderness, vertebral tenderness - Neurological Exam Neurological exam: Present: alert, normal gait, other (there is no facial droop. The tongue is midline. Extraocular movements are intact bilaterally. There is 5 out of 5 strength in bilateral upper and lower extremities. Sensation is inta ct to light touch bilateral upper and lower extremities. There is no past- pointing. There is no pronator drift. There is normal [id number]. There is a normal gait.). Absent: motor sensory deficit - Psychiatric Psychiatric exam: Present: anxious - Skin Skin exam: Present: warm, dry, intact, normal color. Absent: rash ED Course Vital Signs 08/30/19 08/30/19 08/30/19 09:00 10:00 10:45 Temperature 97.6 F Pulse Rate 99 H Respiratory 17 20 Rate Blood Pressure 152/81 Blood Pressure [Right] O2 Sat by Pulse 100 100 100 Oximetry 08/30/19 08/30/19 10:50 10:53 Temperature 98.3 F Pulse Rate 84 76 Respiratory 16 16 Rate Blood Pressure 146/79 Blood Pressure 146/76 [Right] O2 Sat by Pulse 100 100 Oximetry - Reevaluation(s) Reevaluation #1: 08/30/19 11:06 Vital signs unremarkable. Belly soft on repeat exam. Patient in no significant distress. Suitable for discharge with outpatient follow-up. We have discussed return precautions. ED Medical Decision Making - Lab Data Result diagrams: 08/30/19 09:16 08/30/19 09:16 Vital Signs 08/30/19 09:00 Temperature 97.6 F Pulse Rate 99 H Respiratory 17 Rate Blood Pressure 152/81 O2 Sat by Pulse 100 Oximetry Lab Results 08/30/19 08/30/19 08/30/19 Range/Units 09:16 09:16 10:10 WBC 8.7 (4.5-11.0) K/mm3 RBC 3.27 L (3.65-5.03) M/mm3 Hgb 9.6 L (10.1-14.3) gm/dl Hct 28.4 L (30.3-42.9) % MCV 87 (79-97) fl MCH 29 (28-32) pg MCHC 34 (30-34) % RDW 18.2 H (13.2-15.2) % Plt Count 310 (140-440) K/mm3 Lymph % (Auto) 22.2 (13.4-35.0) % [place] % (Auto) 10.1 H (0.0-7.3) % Eos % (Auto) 2.1 (0.0-4.3) % Baso % (Auto) 2.0 H (0.0-1.8) % Lymph # 1.9 (1.2-5.4) K/mm3 [place] # 0.9 H (0.0-0.8) K/mm3 Eos # 0.2 (0.0-0.4) K/mm3 Baso # 0.2 H (0.0-0.1) K/mm3 Seg Neutrophils % 63.6 (40.0-70.0) % Seg Neutrophils # 5.5 (1.8-7.7) K/mm3 PT 12.3 (12.2-14.9) Sec. INR 0.91 (0.87-1.13) APTT 27.4 (24.2-36.6) Sec. Sodium 142 (137-145) mmol/L Potassium 4.0 (3.6-5.0) mmol/L Chloride 105.1 (98-107) mmol/L Carbon Dioxide 23 (22-30) mmol/L Anion Gap 18 mmol/L BUN 10 (7-17) mg/dL Creatinine 1.0 (0.7-1.2) mg/dL Estimated GFR > 60 ml/min BUN/Creatinine Ratio 10 % Glucose 92 (65-100) mg/dL Calcium 9.1 (8.4-10.2) mg/dL Magnesium (1.7-2.3) mg/dL Total Bilirubin (0.1-1.2) mg/dL Direct Bilirubin (0-0.2) mg/dL AST (5-40) units/L ALT (7-56) units/L Alkaline Phosphatase (35-129) units/L Total Creatine Kinase (30-135) units/L Total Protein (6.3-8.2) g/dL Albumin (3.9-5) g/dL Albumin/Globulin Ratio % 08/30/ Range/Units 10:10 WBC (4.5-11.0) K/mm3 RBC (3.65-5.03) M/mm3 Hgb (10.1-14.3) gm/dl Hct (30.3-42.9) % MCV (79-97) fl MCH (28-32) pg MCHC (30-34) % RDW (13.2-15.2) % Plt Count (140-440) K/mm3 Lymph % (Auto) (13.4-35.0) % [place] % (Auto) (0.0-7.3) % Eos % (Auto) (0.0-4.3) % Baso % (Auto) (0.0-1.8) % Lymph # (1.2-5.4) K/mm3 [place] # (0.0-0.8) K/mm3 Eos # (0.0-0.4) K/mm3 Baso # (0.0-0.1) K/mm3 Seg Neutrophils % (40.0-70.0) % Seg Neutrophils # (1.8-7.7) K/mm3 PT (12.2-14.9) Sec. INR (0.87-1.13) APTT (24.2-36.6) Sec. Sodium (137-145) mmol/L Potassium (3.6-5.0) mmol/L Chloride (98-107) mmol/L Carbon Dioxide (22-30) mmol/L Anion Gap mmol/L BUN (7-17) mg/dL Creatinine (0.7-1.2) mg/dL Estimated GFR ml/min BUN/Creatinine Ratio % Glucose (65-100) mg/dL Calcium (8.4-10.2) mg/dL Magnesium 1.90 (1.7-2.3) mg/dL Total Bilirubin 0.20 (0.1-1.2) mg/dL Direct Bilirubin < 0.2 (0-0.2) mg/dL AST 14 (5-40) units/L ALT 7 (7-56) units/L Alkaline Phosphatase 125 (35-129) units/L Total Creatine Kinase 47 (30-135) units/L Total Protein 6.9 (6.3-8.2) g/dL Albumin 3.5 L (3.9-5) g/dL Albumin/Globulin Ratio 1.0 % - Medical Decision Making Differential diagnosis, including but not limited to: Angiodysplasia, diverticulosis, internal hemorrhoid, malignancy Assessment and plan: 48-year-old female with weeks of intermittent rectal bleeding. She is afebrile with reassuring vital signs. Hemoglobin, hematocrit. To be at baseline. Physical examination unremarkable. Vital signs unremarkable and appear to be at baseline. Patient has minimal flecks of red blood on rectal examination. Extensive discussion had with gastroenterology on-call, Dr. Tabares We both agree that of the objective data, history provided, duration of symptoms, patient suitable to follow up closely as an outpatient for further evaluation. We will reinforce need to abstain from tobacco, alcohol, NSAIDs. Critical care attestation.: If time is entered above; I have spent that time in minutes in the direct care of this critically ill patient, excluding procedure time. ED Disposition Clinical Impression: History of rectal bleeding Disposition: DC-01 TO HOME OR SELFCARE Is pt being admited?: No Does the pt Need Aspirin: No Condition: Stable Additional Instructions: Avoid consumption of Motrin, ibuprofen, Naprosyn, Aleve. Avoid consumption of heavy and spicy foods. Avoid consumption of alcohol and tobacco. Recommend patient follow up with a steel roller within the next 5-7 days. Continue current outpatient medications otherwise. Return to the emergency room right away with projectile vomiting, lightheadedness, shortness of breath, change in mental status, worsening bleeding per rectum, vomiting blood, black stool, or new, worsening or different symptoms not present on the initial emergency room evaluation. Referrals: GABBY HOOPER MD [Staff Physician] - 3-5 Days MIRIAM WEBER MD [Staff Physician] - 3-5 Days
[2019-08-30 10:54] VITALS: BP 146/76
== END 2019-08-30 11:40 | disposition home or self-care (01) ==
LOC: ED 08:56
DX: K62.5 Hemorrhage of anus and rectum (principal); R19.7 Diarrhea, unspecified; I10 Essential (primary) hypertension; I25.2 Old myocardial infarction; E78.00 Pure hypercholesterolemia, unspecified; F10.10 Alcohol abuse, uncomplicated; F12.10 Cannabis abuse, uncomplicated; Z79.899 Other long term (current) drug therapy; Z87.891 Personal history of nicotine dependence; Z88.8 Allergy status to other drugs, medicaments and biological substances
CPT/HCPCS: 36415; 80048; 80076; 82271; 82550; 83735; 85025; 85610; 85730; 96361; 96374; 99283; J7030; 80320; G0480

== ENCOUNTER 2019-11-13 08:18 | Day surgery (SDC) | payer OTHER ==
[~2019-11-13 08:18] MED LIST: SODIUM CHLORIDE 0.9% 1000 ML 1,000 ML IV SCH
--- NOTE | 2019-11-13 09:23 | Anesthesia Day of Surgery ---
Anesthesia Day of Surgery - Day of Surgery Patient Examined: Yes Patient H&P Reviewed: Yes Patient is NPO: Yes
--- NOTE | 2019-11-13 09:23 | Anesthesia Consultation ---
Anesthesia Consult and Med Hx Date of service: 11/13/19 - Airway Anesthetic Teeth Evaluation: Poor (2 remaining teeth) ROM Head & Neck: Adequate Mental/Hyoid Distance: Adequate Mallampati Class: Class III Intubation Access Assessment: Possibly Difficult - Pulmonary Exam CTA: Yes - Cardiac Exam Cardiac Exam: RRR - Pre-Operative Health Status ASA Pre-Surgery Classification: ASA3 Proposed Anesthetic Plan: MAC - Pulmonary Hx Smoking: Yes Hx Respiratory Symptoms: No Hx Sleep Apnea: No - Cardiovascular System Hx Hypertension: Yes Hx Coronary Artery Disease: Yes (last cardiology visit 1 month ago; stable per patient) Hx Heart Attack/AMI: Yes (2 yrs ago; off anticoagulants x1wk) Hx Percutaneous Transluminal Coronary Angioplasty (PTCA): No Hx Cardia Arrhythmia: No Hx Pacemaker: No Hx Internal Defibrillator: No Hx Peripheral Vascular Disease: No - Central Nervous System CVA: No Hx Psychiatric Problems: No - Gastrointestinal Hx Ulcer: Yes - Endocrine Hx Renal Disease: No Hx Liver Disease: No Hx Insulin Dependent Diabetes: No Hx Non-Insulin Dependent Diabetes: No Hx Hyperthyroidism: Yes - Other Systems Hx Alcohol Use: Yes (hx EtOH abuse) Hx Obesity: No - Additional Comments Anesthesia Medical History Comments: NO hx anesthetic complications.
[2019-11-13] MEDS ORDERED: propofoL 200 MG/20 ML VIAL IV ONE ×2 (10:28)
[2019-11-13] MEDS ORDERED: WATER FOR IRRIG STERILE 250 ML BOTTLE IR ONE (10:34)
--- NOTE | 2019-11-13 10:55 | Operative Report ---
Operative Report Operative Report: DOS: 11/13/19 SURGEON: Glenroy Schofield MD EGD REPORT PREOPERATIVE DIAGNOSIS and POSTOPERATIVE DIAGNOSIS: Follow-up of peptic ulcer disease and gastric intestinal metaplasia ESTIMATED BLOOD LOSS: None DESCRIPTION OF PROCEDURE: A high-resolution EGD scope was passed through the oropharynx, esophagus, stomach, and second portion of duodenum. The scope was carefully withdrawn. Retroflexion was performed in the stomach. At the end of the procedure, the scope was cleaned using normal technique. Vital signs mon itored continuously throughout. SEDATION: Provided by Anesthesiology Services. COMPLICATIONS: None. FINDINGS: * Mild to moderate duodenitis of the duodenal bulb with erythema of the mucosa no ulceration noted the remainder of the duodenum was normal * Mild gastritis of the gastric antrum and body with erythema. Of note no residual ulceration was present * GE junction at 39 cm from the incisors * Irregular Z line at 39 cm from the incisors * Remainder of the exam was normal RECOMMENDATIONS: Repeat EGD for surveillance of intestinal metaplasia in 3 years Continue PPI
--- NOTE | 2019-11-13 11:00 | Operative Report ---
Operative Report Operative Report: DOS: 11/13/2019 SURGEON: Glenroy Schofield MD COLONOSCOPY REPORT PREOPERATIVE AND POSTOPERATIVE DIAGNOSIS: Screening colonoscopy DESCRIPTION OF PROCEDURE: The colonoscope was passed to the cecum as identified by the ileocecal valve and appendiceal orifice. Scope was carefully withdrawn. Retroflexion was performed in the rectum. At the end of procedure, the scope was cleaned using normal technique. Vital signs monitored continuously throughout. SEDATION: Provided by [facility]. Quality of the prep was fair COMPLICATIONS: None. ESTIMATED BLOOD LOSS: None FINDINGS: Small nonbleeding internal hemorrhoids Moderate amount of semiliquid stool scattered throughout the colon at times interfering with views Remainder of exam was normal RECOMMENDATIONS: Repeat colonoscopy in 5 years for screening purposes with an extended prep Annual FIT exam should be performed through the patient's PCP to be thorough, given the somewhat limited prep on today's colonoscopy
[2019-11-13 11:28] VITALS: BP 130/68
[2019-11-13] MEDS ORDERED: LIDOCAINE MPF (2%) 20 MG/1 ML VIAL 5 ML ONE (12:00)
--- NOTE | 2019-11-13 13:19 | Post Anesthesia Evaluation ---
- Post Anesthesia Evaluation Patient Participated: Yes Airway Patent: Yes Stable Respiratory Function: Yes Nausea/Vomiting: No Temp > 96.8F: Yes Pain Manageable: Yes Adequeate Hydration: Yes Anesthesia Complications: No
== END 2019-11-13 08:19 | disposition home or self-care (01) ==
LOC: GIO 08:18
PROVIDERS: ATTEND Student in an Organized Health Care Education/Training Program
DX: R10.9 Unspecified abdominal pain (principal); K64.8 Other hemorrhoids; K29.70 Gastritis, unspecified, without bleeding; K29.80 Duodenitis without bleeding; K21.9 Gastro-esophageal reflux disease without esophagitis; E78.5 Hyperlipidemia, unspecified; I10 Essential (primary) hypertension; F17.210 Nicotine dependence, cigarettes, uncomplicated; K31.89 Other diseases of stomach and duodenum; I25.10 Atherosclerotic heart disease of native coronary artery without angina pectoris; E03.9 Hypothyroidism, unspecified; Z72.89 Other problems related to lifestyle; Z98.891 History of uterine scar from previous surgery; Z98.890 Other specified postprocedural states; Z80.3 Family history of malignant neoplasm of breast; Z87.440 Personal history of urinary (tract) infections; Z82.49 Family history of ischemic heart disease and other diseases of the circulatory system; K27.9 Peptic ulcer, site unspecified, unspecified as acute or chronic, without hemorrhage or perforation
CPT/HCPCS: 43235; 45378; J2704; J7030

== ENCOUNTER 2020-06-03 19:42 | Emergency (ER) | payer OTHER ==
--- NOTE | 2020-06-03 19:50 | Emergency Department Report ---
Blank Doc - Documentation Documentation: 49-year-old female that presents with left foot pain s/p injury last week. This initial assessment/diagnostic orders/clinical plan/treatment(s) is/are subject to change based on patient's health status, clinical progression and re- assessment by fellow clinical providers in the ED. Further treatment and workup at subsequent clinical providers discretion. Patient/guardians urged not to elope from the ED as their condition may be serious if not clinically assessed and managed. Initial orders include: 1- Patient sent to [facility] for further evaluation and treatment 2- xrays
--- NOTE | 2020-06-03 20:53 | XRay Report ---
LEFT FOOT 3 VIEWS INDICATION / CLINICAL INFORMATION: foot pain COMPARISON: None available. FINDINGS: BONES / JOINT(S): There is a fracture of the proximal phalanx of the fifth toe which is minimally dis placed . No significant arthritis. SOFT TISSUES: No significant abnormality. ADDITIONAL FINDINGS: None. Signer Name: Terrance Horn MD Signed: 06/03/2020 8:49 PM Workstation Name: [id number]
--- NOTE | 2020-06-03 22:00 | Emergency Department Report ---
ED Extremity Problem HPI - General Chief complaint: Extremity Injury, Lower Stated complaint: LF FOOT PAIN Time Seen by Provider: 06/03/20 19:49 Source: patient Mode of arrival: Ambulatory Limitations: No Limitations - History of Present Illness Initial comments: 49-year-old -[place] female presents to the emergency room for left foot pain and swelling for the last 8 days. Patient states that she is stepped down off a step when her toes went back. Patient states that she felt it was just sprained but the swelling and the pain has not improved. Patient comes in today for evaluation. Patient states that she has been taking Goody powders for her pain. She reports that the pain is worse when she is places her foot flat on the floor. Better with elevating. Onset/Timin -: days(s) Location: left, toe History of Same: No -: Yes arthralgia Severity scale (0 -10): 8 Quality: aching, sharp Consistency: constant Improves with: elevation, rest Worsens with: weight bearing, walking - Related Data Home Medications Medication Instructions Recorded Confirmed Last Taken Propylthiouracil 50 mg PO DAILY 07/23/19 11/13/19 11/12/19 AtorvaSTATin [Lipitor] 40 mg PO DAILY 08/30/19 11/13/19 11/12/19 Losartan [Cozaar] 25 mg PO QDAY 08/30/19 11/13/19 11/12/19 Melatonin [Melatonin 5MG RAPDIS] 5 mg PO QHS PRN 08/30/19 11/13/19 08/29/19 Mirtazapine [Remeron 15mg TAB] 1 tab PO QHS 08/30/19 11/13/19 11/12/19 Centrum Silver Tablet 1 tab PO DAILY 11/13/19 11/13/19 11/12/19 Plavix 75 mg PO DAILY 11/13/19 11/13/19 11/06/19 Previous Rx's Medication Instructions Recorded Last Taken Type Acetaminophen [Acetaminophen TAB] 1 tab PO Q4H PRN #16 tablet 07/29/19 08/29/19 Rx Nicotine [Habitrol] 14 mg TD QDAY@2200 #15 patch 07/29/19 08/28/19 Rx Pantoprazole [Protonix] 40 mg PO BID #60 tablet 07/29/19 11/12/19 Rx Ondansetron [Zofran Odt] 4 mg PO Q8HR PRN #20 tab.rapdis 08/14/19 Unknown Rx Sucralfate [Carafate] 1 gm PO Q6HR #20 tablet 08/14/19 11/12/19 Rx traMADoL [Ultram 50 MG tab] 50 mg PO Q6HR PRN #12 tablet 06/03/20 Unknown Rx Allergies Allergy/AdvReac Type Severity Reaction Status Date / Time lisinopril Allergy Swelling Verified 08/14/19 14:05 ED Review of Systems ROS: Stated complaint: LF FOOT PAIN Other details as noted in HPI Comment: All other systems reviewed and negative ED Past Medical Hx - Past Medical History Hx Hypertension: Yes Hx Heart Attack/AMI: Yes Hx Congestive Heart Failure: No Hx Diabetes: No Hx Deep Vein Thrombosis: No Hx Liver Disease: No Hx Renal Disease: No Hx Sickle Cell Disease: Yes (TRAIT) Additional medical history: HIGH CHOLESTROL/ PR X2. Hyperthyroidism, Peptic Ulcers/Gasric ulcers - Surgical History Hx Coronary Stent: No Hx Pacemaker: No Hx Internal Defibrillator: No Additional Surgical History: - Social History Smoking Status: Current Every Day Smoker Substance Use Type: Alcohol - Medications Home Medications: Home Medications Medication Instructions Recorded Confirmed Last Taken Type Propylthiouracil 50 mg PO DAILY 07/23/19 11/13/19 11/12/19 History Acetaminophen [Acetaminophen TAB] 1 tab PO Q4H PRN #16 tablet 07/29/19 11/13/19 08/29/19 Rx Nicotine [Habitrol] 14 mg TD QDAY@2200 #15 patch 07/29/19 11/13/19 08/28/19 Rx Pantoprazole [Protonix] 40 mg PO BID #60 tablet 07/29/19 11/13/19 11/12/19 Rx Ondansetron [Zofran Odt] 4 mg PO Q8HR PRN #20 tab.rapdis 08/14/19 11/13/19 Unknown Rx Sucralfate [Carafate] 1 gm PO Q6HR #20 tablet 08/14/19 11/13/19 11/12/19 Rx AtorvaSTATin [Lipitor] 40 mg PO DAILY 08/30/19 11/13/19 11/12/19 History Losartan [Cozaar] 25 mg PO QDAY 08/30/19 11/13/19 11/12/19 History Melatonin [Melatonin 5MG RAPDIS] 5 mg PO QHS PRN 08/30/19 11/13/19 08/29/19 History Mirtazapine [Remeron 15mg TAB] 1 tab PO QHS 08/30/19 11/13/19 11/12/19 History Centrum Silver Tablet 1 tab PO DAILY 11/13/19 11/13/19 11/12/19 History Plavix 75 mg PO DAILY 11/13/19 11/13/19 11/06/19 History traMADoL [Ultram 50 MG tab] 50 mg PO Q6HR PRN #12 tablet 06/03/20 Unknown Rx ED Physical Exam - General Limitations: No Limitations General appearance: alert - Head Head exam: Present: atraumatic, normocephalic - Eye Eye exam: Present: normal appearance - ENT ENT exam: Present: mucous membranes moist - Expanded Lower Extremity Exam Left Hip exam: Present: normal inspection Upper Leg exam: Present: normal inspection Knee exam: Present: normal inspection Lower Leg exam: Present: normal inspection Ankle exam: Present: normal inspection, full ROM Foot/Toe exam: Present: tenderness, swelling, erythema. Absent: full ROM (Not able to fifth digit) Neuro vascular tendon exam: Present: no vascular compromise - Back Exam Back exam: Present: normal inspection - Neurological Exam Neurological exam: Present: alert, oriented X3 - Psychiatric Psychiatric exam: Present: normal affect, normal mood - Skin Skin exam: Present: warm, dry, intact, normal color. Absent: rash ED Course Vital Signs 06/03/20 19:54 Temperature 98.3 F Pulse Rate 102 H Respiratory 14 Rate Blood Pressure 154/73 O2 Sat by Pulse 94 Oximetry ED Medical Decision Making - Radiology Data Radiology results: report reviewed Patient: SERA DE LUNA MR#: [id number] : 1970 Acct:[id number] Age/Sex: 49 / F ADM Date: 06/03/20 Loc: ED Attending Dr: Ordering Physician: JEN MARRERO NP Date of Service: 06/03/20 Procedure(s): XR foot 3+V LT Accession Number(s): [id number] cc: JEN MARRERO NP Fluoro Time In Minutes: LEFT FOOT 3 VIEWS INDICATION / CLINICAL INFORMATION: foot pain COMPARISON: None available. FINDINGS: BONES / JOINT(S): There is a fracture of the proximal phalanx of the fifth toe which is minimally displaced . No significant arthritis. SOFT TISSUES: No significant abnormality. ADDITIONAL FINDINGS: None. Signer Name: Terrance Horn MD Signed: 06/03/2020 8:49 PM Workstation Name: [id number] Transcribed By: Dictated By: Terrance Horn MD Electronically Authenticated By: Terrance Horn MD Signed Date/Time: 06/03/202048 DD/ 47 TD/TT: - Medical Decision Making 49-year-old -[place] female presents to the emergency room for left foot pain and swelling for the last 8 days. Patient states that she is stepped down off a step when her toes went back. Patient states that she felt it was just sprained but the swelling and the pain has not improved. Patient comes in today for evaluation. Patient states that she has been taking Goody powders for her pain. She reports that the pain is worse when she is places her foot flat on the floor. Better with elevating. X-ray shows a proximal phalanx fracture with minimal displacement. Patient be sent home on tramadol recommend Tylenol or ibuprofen for pain use crutches wear postop shoe and follow-up with orthopedics. Critical care attestation.: If time is entered above; I have spent that time in minutes in the direct care of this critically ill patient, excluding procedure time. ED Disposition Clinical Impression: Toe fracture, left Qualifiers: Encounter type: initial encounter Toe: lesser toe Fracture type: closed Phalanx: proximal Fracture alignment: displaced Qualified Code(s): S92.512A - Displaced fracture of proximal phalanx of left lesser toe(s), initial encounter for closed fracture Disposition: DC-01 TO HOME OR SELFCARE Is pt being admited?: No Does the pt Need Aspirin: No Condition: Stable Instructions: Toe Fracture (ED) Additional Instructions: You have fractured your pinky toe on your left foot. Please take the pain medication as needed Tylenol or ibuprofen. Tramadol for breakthrough pain. It is very important for you to elevate ice for 20 minutes and off for 2 hours. It is very important for you to follow-up with an orthopedic provider I have listed to below before your convenience. Prescriptions: traMADoL [Ultram 50 MG tab] 50 mg PO Q6HR PRN #12 tablet PRN Reason: Pain Referrals: GABBY LAMAR [Other] - 3-5 Days TOMY SANCHES MD [Staff Physician] - 3-5 Days MATHEW LAGUNAS MD [Staff Physician] - 3-5 Days
[2020-06-03 22:40] VITALS: BP 132/87
== END 2020-06-03 22:40 | disposition home or self-care (01) ==
LOC: ED 19:42
DX: S92.512A Displaced fracture of proximal phalanx of left lesser toe(s), initial encounter for closed fracture (principal); I10 Essential (primary) hypertension; I25.2 Old myocardial infarction; E78.00 Pure hypercholesterolemia, unspecified; E05.00 Thyrotoxicosis with diffuse goiter without thyrotoxic crisis or storm; D57.3 Sickle-cell trait; F17.200 Nicotine dependence, unspecified, uncomplicated; Z98.890 Other specified postprocedural states; Z88.6 Allergy status to analgesic agent; X50.1XXA Overexertion from prolonged static or awkward postures, initial encounter; Y93.89 Activity, other specified; Y92.89 Other specified places as the place of occurrence of the external cause; Y99.8 Other external cause status
CPT/HCPCS: 99283

== ENCOUNTER 2021-02-02 08:49 | Emergency (ER) | payer OTHER ==
[2021-02-02 09:32] VITALS: BP 102/70
--- NOTE | 2021-02-02 12:13 | Event Note ---
ED Screening Note ED Screening Note: pt presents for BLE numbness that began two weeks ago states it feels like tingling/numbness but she can still feel her legs when she touches she states two weeks ago it was from her knee to her toes she states now it is from her abdomen to below she states today it was her left arm she has mild lower back pain and mild abd pain she denies any CP, bowel or bladder incontinenence, gait disturbance, fever, n/v/d, SOB pmhx graves, hyperthyroidism, HTN, HLD, [place] former drinker states she has not drank in 4-5 months +smoker 1 ppd +marijuana This initial assessment/diagnostic orders/clinical plan/treatment(s) is/are subject to change based on patients health status, clinical progression and re-assessment by fellow clinical providers in the ED. Further treatment and workup at subsequent clinical providers discretion. Patient/guardian urged not to elope from the ED as their condition may be serious if not clinically assessed and managed. Initial orders include: labs, ekg, urine, ct head
[2021-02-02 13:06] LABS: Basophils % (Auto) 0.5 % (0.0-1.8); Eosinophils # (Auto) 0.1 K/mm3 (0.0-0.4); Hematocrit 39.8 % (30.3-42.9); Hemoglobin 14.1 gm/dl (10.1-14.3); Lymphocytes # (Auto) 2.2 K/mm3 (1.2-5.4); Lymphocytes % (Auto) 26.2 % (13.4-35.0); Mean Corpuscular HGB Conc 35 % (30-34); Mean Corpuscular Volume 99 fl (79-97); Monocytes # (Auto) 0.9 K/mm3 (0.0-0.8); Monocytes % (Auto) 10.7 % (0.0-7.3); Red Blood Count 4.01 M/mm3 (3.65-5.03); Red Cell Distribution Width 14.4 % (13.2-15.2)
[2021-02-02 13:07] LABS: Platelet Count 257 K/mm3 (140-440)
[2021-02-02 13:09] LABS: Alanine Aminotransferase 27 units/L (7-56); Albumin 3.1 g/dL (3.9-5); BUN/Creatinine Ratio 7; Blood Urea Nitrogen 6 mg/dL (7-17); Calcium 8.9 mg/dL (8.4-10.2); Hemolysis Index 39
--- NOTE | 2021-02-02 13:09 | Cat Scan Report ---
CT head without contrast INDICATION : Left arm pain and numbness. Paresthesias TECHNIQUE: Axial imaging performed from the skull apex through the skull base without the use of con trast. All CT examinations performed at this facility utilize dose modulation, iterative reconstruct ion or weight-based dosing, when appropriate, to reduce radiation dose to as low as reasonably achiev able. COMPARISON: None FINDINGS: No acute intracranial hemorrhage. There there are several focal areas of encephalomalacia within the deep cerebral white matter of the right frontotemporal lobes and the right MCA distributio n. No hydrocephalus. Soft tissues including the orbits appear normal. No acute osseous abnormalit y. Sinuses and mastoid air cells are clear. IMPRESSION: No acute intracranial hemorrhage. There is focal encephalomalacia involving the deep whit e matter of the right frontal lobe with some associated ex vacuo dilatation of the anterior horn of t he right lateral ventricle, suggesting a chronic process within the right MCA distribution. Signer Name: Polo Perez MD Signed: 02/02/2021 1:05 PM Workstation Name: [id number]
--- NOTE | 2021-02-04 17:50 | Electrocardiograph Report ---
[facility] Test Date: 2021-02-02 Test Time: 12:25:43 Pat Name: SERA DE LUNA Department: Room: Gender: F [employer] Representative: : 1970 Requested By: RAMILA JANE Order Number: [id number] Reading MD: Lisa Radford Measurements Intervals [place] Rate: 97 P: 149 [place]: 105 QRS: 30 QRSD: 83 T: 145 QT: 343 QTc: 436 Interpretive Statements Sinus or ectopic atrial rhythm Anteroseptal infarct, age indeterminate Abnormal T, consider ischemia, lateral leads No previous ECG available for comparison Electronically Signed On 02-04-2021 17:50:43 EDT by Lisa Radford
== END 2021-02-02 17:00 | disposition left against medical advice (07) ==
LOC: ED 08:49
DX: R20.0 Anesthesia of skin (principal); Z53.21 Procedure and treatment not carried out due to patient leaving prior to being seen by health care provider
CPT/HCPCS: 36415; 70450; 80053; 82550; 83735; 84443; 85025; 93005

== ENCOUNTER 2022-01-20 18:40 | Emergency (ER) | payer OTHER | END 2022-01-21 07:22 | disposition left against medical advice (07) | LOC: ED 18:40 | DX: M79.89 Other specified soft tissue disorders (principal); Z53.21 Procedure and treatment not carried out due to patient leaving prior to being seen by health care provider ==